=== PATIENT | male | born 1960 | race Caucasian/White ===

== ENCOUNTER 2018-08-21 17:08 | Inpatient (IN) ==
[2018-08-21] MEDS ORDERED: Ipratropium/Albuterol Neb 3 ML ONE (17:09)
[2018-08-21] MEDS ORDERED: methylPREDNISolone 125 MG/2 ML VIAL ONE (17:12)
[2018-08-21] MEDS ORDERED: methylPREDNISolone 125 MG/2 ML VIAL IVP ONE (17:15)
[2018-08-21] MEDS ORDERED: KETAMINE IVC SCH (17:15)
[2018-08-21] MEDS ORDERED: Ipratropium/Albuterol Neb 3 ML IH ONE (17:15)
[2018-08-21] MEDS ORDERED: SODIUM CHLORIDE 0.9% IVC SCH (17:15)
[2018-08-21] MEDS ORDERED: *HR* Ketamine 500 MG/5 ML MDV IVP ONE (17:17)
--- NOTE | 2018-08-21 17:17 | Emergency Department Note ---
Disposition Clinical Impression: Acute exacerbation of chronic obstructive airways disease STEMI (ST elevation myocardial infarction) Qualifiers: Involved coronary artery: unspecified coronary artery Qualified Code(s): I21.3 - ST elevation (STEMI) myocardial infarction of unspecified site Acute respiratory failure Qualifiers: Respiratory failure complication: hypoxia and hypercapnia Qualified Code(s): J96.01 - Acute respiratory failure with hypoxia Disposition: Admitted As Inpatient Condition: Serious General Adult HPI - General Time Seen by Provider: 08/21/18 17:15 - Related Data Allergies Allergy/AdvReac Type Severity Reaction Status Date / Time No Known Allergies Allergy Verified 12/28/14 19:26 Past Medical History - Past Medical History Medical history: Reports: no medical history - Social History Smoking Status: Current some day smoker Smokeless Tobacco Status: No Alcohol use: Reports: none Course Vital Signs Temperature 0 F L 08/21/18 17:09 Pulse Rate 113 08/21/18 17:09 Respiratory Rate 36 08/21/18 17:09 Blood Pressure 178/123 08/21/18 17:09 O2 Sat by Pulse Oximetry 92 08/21/18 17:09 Temperature 101.2 F H 08/21/18 17:56 Pulse Rate 140 08/21/18 19:17 Respiratory Rate 32 08/21/18 18:00 Blood Pressure 134/97 08/21/18 19:17 O2 Sat by Pulse Oximetry 97 08/21/18 19:13 Oxygen Delivery Oxygen Delivery Bipap Medical Decision Making - Lab Data Result diagrams: 08/21/18 17:37 08/21/18 17:37 Lab Results 08/21/18 08/21/18 08/21/18 Range/Units 17:37 17:37 17:37 WBC 21.5 H (4.3-11.1) K/mcL RBC 5.49 (4.19-5.50) M/mcL Hgb 17.6 H (12.9-16.9) g/dL Hct 53.9 H (37.5-50.1) % MCV 98.2 (83.0-100.0) fL MCH 32.1 (28.0-33.3) pg MCHC 32.7 (31.6-35.5) g/dL RDW 13.3 (11.5-14.5) % Plt Count 273 (140-400) K/mcL MPV 9.9 (9.4-12.4) fL Immature Gran % 0.3 (0-4) % Seg Neutrophils % 50.0 % Lymphocytes % 39.4 % Monocytes % 8.2 % Eosinophils % 1.0 % Basophils % 1.1 % Neutrophils # 10.8 H (1.6-8.9) K/mcL Lymphocytes # 8.5 H (0.6-4.6) K/mcL Monocytes # 1.8 H (0.0-1.3) K/mcL Eosinophils # 0.2 (0.0-0.6) K/mcL Basophils # 0.2 (0.0-0.2) K/mcL Platelet Estimate Normal (Normal) Large Platelets Present A (Not Present) PT 11.8 (9.4-12.1) Seconds INR 1.0 APTT 37.0 H (26.0-36.0) Seconds Sodium 137 (136-145) mEq/L Potassium 4.5 (3.5-5.1) mEq/L Chloride 104 (98-107) mEq/L Carbon Dioxide 16 L (23-29) mEq/L BUN 11 (6-20) mg/dL Creatinine 0.95 (0.70-1.30) mg/dL Est GFR ( Amer) > 60 (> 60) Est GFR (Non-Af Amer) > 60 (> 60) BUN/Creatinine Ratio 12 (6-26) Glucose 201 H (70-105) mg/dL Calculated Osmolality 289 (280-300) Calcium 9.8 (8.6-10.3) mg/dL Troponin I 1.17 H* (< 0.04) ng/mL B-Natriuretic Peptide (Less than 100) pg/mL Specimen Rejected 08/21/18 08/21/18 Range/Units 17:37 17:37 WBC (4.3-11.1) K/mcL RBC (4.19-5.50) M/mcL Hgb (12.9-16.9) g/dL Hct (37.5-50.1) % MCV (83.0-100.0) fL MCH (28.0-33.3) pg MCHC (31.6-35.5) g/dL RDW (11.5-14.5) % Plt Count (140-400) K/mcL MPV (9.4-12.4) fL Immature Gran % (0-4) % Seg Neutrophils % % Lymphocytes % % Monocytes % % Eosinophils % % Basophils % % Neutrophils # (1.6-8.9) K/mcL Lymphocytes # (0.6-4.6) K/mcL Monocytes # (0.0-1.3) K/mcL Eosinophils # (0.0-0.6) K/mcL Basophils # (0.0-0.2) K/mcL Platelet Estimate (Normal) Large Platelets (Not Present) PT (9.4-12.1) Seconds INR APTT (26.0-36.0) Seconds Sodium (136-145) mEq/L Potassium (3.5-5.1) mEq/L Chloride (98-107) mEq/L Carbon Dioxide (23-29) mEq/L BUN (6-20) mg/dL Creatinine (0.70-1.30) mg/dL Est GFR ( Amer) (> 60) Est GFR (Non-Af Amer) (> 60) BUN/Creatinine Ratio (6-26) Glucose (70-105) mg/dL Calculated Osmolality (280-300) Calcium (8.6-10.3) mg/dL Troponin I (< 0.04) ng/mL B-Natriuretic Peptide 422 H (Less than 100) pg/mL Specimen Rejected Hemolyzed Critical Care Time Critical Care Time: Yes Total Critical Care Time: 60 Attestation: Critical care performed: Time is exclusive of separately billable procedures. Time includes: direct patient care, patient reassessment, coordination of patient care, interpretation of data (laboratory data, radiology data, and respiratory data), review of patient's medical records, medical consultation and documentation of patient care. Procedures included in critical care time: Procedures excluded from critical care time: Attestation Statement - Attestation Attestation: I examined this patient and my medical decision-making was reviewed with the Resident Physician. I agree with the documented findings, disposition and treatment plan as described except to the extent set forth below. Patient presents to the emergency department in respiratory distress. Accompani ed by his son. Patient has been short of breath since yesterday. Coughing. History of COPD. his son States he was so dyspneic he cannot not get to the bathroom this morning. On exam he is in obvious respiratory distress. Accessory muscle use. Tripoding. Conversational dyspnea. Satting 92 on room air. Plan. Nebs and steroids. BiPAP trial. Labs x-ray and admission. Patient is adamantly refusing to be intubated at this time. [address] elevations in the anterior leads. Concerning for ST elevation SC. Contacting interventional cardiology at this time. Dr. Suazo return phone call at 1820. Requests repeat EKG. We will send. 1920 Patient going to [facility] at this time. He has been sedated with Ativan, Versed, and Precedex. He is tolerating the BiPAP at this time, but still in respiratory distress. Lungs discuss him with the son about his wishes. The patient was adamant he did not want to be intubated. Patient was not intubated in the ED. DNR form on chart. Taking to [facility] at this time. Patient was also started on nitro drip after reviewing his x-ray. Patient also likely has pneumonia. Ordering IV antibiotics. Lengthy discussion with the son about how critically ill he is at this time. Son is aware of his poor prognosis. Chest X-Ray 08/21/18 17:15 IMPRESSION: Findings consistent with pulmonary edema, and small bilateral pleural effusions. Focal rounded opacity of the right mid lung lateral to the hilar shadow which may either be due to a mass or focal pneumonia. Follow-up to ensure resolution is needed. Recommend either a follow-up chest x-ray in 2-3 weeks after treatment or a chest CT. D/ / Cesar Babin MD / Cesar Babin MD Interpreting Provider: Cesar Babin MD
[2018-08-21] MEDS ORDERED: 0.9 % Sodium Chloride 250 ML ONE (17:22)
[2018-08-21] MEDS ORDERED: *HR* Ketamine 500 MG/5 ML MDV ONE (17:22)
[2018-08-21 17:54] LABS: Basophils # 0.2 K/mcL (0.0-0.2); Basophils % 1.1 %; Eosinophils # 0.2 K/mcL (0.0-0.6); Hematocrit 53.9 % (37.5-50.1); Hemoglobin 17.6 g/dL (12.9-16.9); Immature Granulocytes % 0.3 % (0-4); Lymphocytes # 8.5 K/mcL (0.6-4.6); Lymphocytes % 39.4 %; Mean Corpuscular HGB Conc 32.7 g/dL (31.6-35.5); Mean Corpuscular Hemoglobin 32.1 pg (28.0-33.3); Mean Corpuscular Volume 98.2 fL (83.0-100.0); Mean Platelet Volume 9.9 fL (9.4-12.4); Monocytes # 1.8 K/mcL (0.0-1.3); Monocytes % 8.2 %; Neutrophils # 10.8 K/mcL (1.6-8.9); Platelet Count 273 K/mcL (140-400); Red Blood Count 5.49 M/mcL (4.19-5.50); Red Cell Distribution Width 13.3 % (11.5-14.5)
[2018-08-21] MEDS ORDERED: Acetaminophen 650 MG RECTAL SUPP RC ONE (17:58)
[2018-08-21 18:11] LABS: Platelet Estimate Normal (Normal)
[2018-08-21 18:12] LABS: Large Platelets Present (Not Present); Prothrombin Time 11.8 Seconds (9.4-12.1)
[2018-08-21] MEDS: Dexmedetomidine HCl 400 MCG/100 ML MLS IVC SCH (18:25)
--- NOTE | 2018-08-21 18:30 | Emergency Department Note ---
Disposition Clinical Impression: Acute exacerbation of chronic obstructive airways disease STEMI (ST elevation myocardial infarction) Qualifiers: Involved coronary artery: unspecified coronary artery Qualified Code(s): I21.3 - ST elevation (STEMI) myocardial infarction of unspecified site Acute respiratory failure Qualifiers: Respiratory failure complication: hypoxia and hypercapnia Qualified Code(s): J96.01 - Acute respiratory failure with hypoxia Disposition: Admitted As Inpatient Condition: Critical Time of Disposition: 19:25 General Adult HPI - General Chief complaint: ED Shortness of Breath/Dyspnea Stated complaint: USMAN Time Seen by Provider: 08/21/18 17:15 Source: patient Limitations: no limitations Nursing Notes Reviewed: Yes Vital Signs Reviewed: Yes - History of Present Illness HPI Narrative: 58-year-old male presented to the emergency department from the chest ambulance bay in respiratory distress. Has history of COPD said he was unable to catch his breath. He does have history of COPD is still smoking. Says he has nebulizers at home does not have a BiPAP as he gets very anxious whenever he uses it. He said this is unable to catch his breath he has had fever yesterday. Otherwise patient has no other complaints at this time. He is studies been working of breathing over the last 2-3 days. With increased today where he just could not stand it. Pain Scale: 2 - Related Data Allergies Allergy/AdvReac Type Severity Reaction Status Date / Time No Known Allergies Allergy Verified 12/28/14 19:26 All systems ED: reviewed and negative except as stated. Review of Systems: As Per HPI Past Medical History - Past Medical History Attestation: Yes The following information was validated with the patient. Source: patient Medical history: Reports: COPD - Social History Smoking Status: Current every day smoker Smokeless Tobacco Status: No Alcohol use: Reports: none Physical Exam - General Limitations: no limitations General appearance: alert, in distress - Head Head exam: atraumatic, normocephalic, normal inspection - Eye Eye exam: Present: normal appearance, PERRL, EOMI - ENT ENT exam: normal exam, normal oropharynx, mucous membranes moist - Neck Neck exam: Present: normal inspection, full ROM, trachea midline - Chest Chest inspection: Present: normal inspection, symmetric chest wall rise - Respiratory Respiratory exam: Present: respiratory distress, wheezes, accessory muscle use, prolonged expiratory phase - Cardiovascular Cardiovascular exam: Present: regular rate, normal rhythm, normal heart sounds - Abdominal Exam Abdominal exam: Present: soft, Non-Tender, normal bowel sounds. Absent: tenderness, distention, guarding, rebound, rigidity - Extremities Exam Extremities exam: Present: normal inspection, full ROM. Absent: tenderness, pedal edema - Back Exam Back exam: Present: normal inspection, full ROM. Absent: tenderness, CVA tenderness (R), CVA tenderness (L) - Neurological Exam Neurological exam: Present: alert, oriented X3 Course - Reevaluation(s) Reevaluation #1: Reevaluated just prior to leaving to the [facility]. This is all he was on Precedex we did give a dose of her said he did become more relaxed and is doing well on the BiPAP machine. We did recommend intubation but again we had a discussion with the son who was at bedside and we talked about the patient not wanting to be intubated. The son again decided we would not do intubation at that time. Patient was sent to the [facility] at this time. Time: 19:20 - Consultations Consultation #1: Patient was sent to Dr. Suazo at 1745. I received no call back and sometimes then I personally called the [facility]aging Center myself and Dr. Suazo called back and I spoke with him at 1820. He is recommended I repeat an EKG as its been a half hour since duo nebs and steroids and he said if the elevated he will take the patient to [facility]. Awaiting EKG result of this time. Vital Signs Temperature 0 F L 08/21/18 17:09 Pulse Rate 113 08/21/18 17:09 Respiratory Rate 36 08/21/18 17:09 Blood Pressure 178/123 08/21/18 17:09 O2 Sat by Pulse Oximetry 92 08/21/18 17:09 Temperature 101.2 F H 08/21/18 17:56 Pulse Rate 140 08/21/18 19:17 Respiratory Rate 32 08/21/18 18:00 Blood Pressure 134/97 08/21/18 19:17 O2 Sat by Pulse Oximetry 97 08/21/18 19:13 Oxygen Delivery Oxygen Delivery Bipap Medical Decision Making - MDM Narrative Medical decision making narrative: 58-year-old male presented to the emergency department and shortness of breath. Patient was a very difficult time breathing we placed him on triple DuoNeb treatment as well as gave him a dose of Solu-Medrol he was 7 hard time says very anxious with mass was not doing well at that time he said patient needed BiPAP. He said he is very anxious so we started him on ketamine I gave him a ketamine bolus of one bag per kilogram and started a drip at 1 mg/kg per hour. Patient was tolerating this well we do not have a protocol for a a ketamine drip/tit ration for sedation so we changed him to a Precedex drip. EKG came back to us at approximately 1740 at that time we looked at and were worried about the ST elevations we paged Dr. Suazo interventional cardiology. We did not call STEMI originally due to patient not being stable when he first arrived adn we thought this may be due to respiratory. For some reason the patient not get through to him so I re-patient approximate 20 minutes later he then called back and he told me to repeat the EKG is been a half hour due to the respiratory distress this could be artifact or could be an underlying cause causing the ST elevation. He did have ST elevations in leads V1 and V2 and V3. There were no reciprocal changes. Patient was mainly here for shortness of breath never admitted to chest pain but he was in a lot of distress due to the breathing when he arrived. Dr. Suazo I then spoke with at that time and he saw the second EKG and decide to call a STEMI alert. The STEMI alert was called at 1835. This is per Dr. Suazo. At that time heparin were given we did give rectal aspirin. Patient was unable to chew is currently on Precedex at this time so were unable to give the brillenta. I first saw Dr. Suazo at 1743 he then called me back at 181. Myself and Dr. Finley both had a long discussion with the patient prior to giving him the ketamine and he stated he did not want to be intubated and did not want to be resuscitated in case his heart was to stop beating. Family was at bedside and they also agree with that. We are making him a DNR/DNI. Patient did have a fever so we started him on Levaquin. Patient probably has an underlying pneumonia as well. While patient was here prior to leaving we did look at his chest x-ray again which did show pleural effusions patient could be an flash pulmonary edema so did give him a 100 g per hour drip of nitroglycerin. Patient tolerated this well pressure was holding. Chest X-Ray 08/21/18 17:15 IMPRESSION: Findings consistent with pulmonary edema, and small bilateral pleural effusions. Focal rounded opacity of the right mid lung lateral to the hilar shadow which may either be due to a mass or focal pneumonia. Follow-up to ensure resolution is needed. Recommend either a follow-up chest x-ray in 2-3 weeks after treatment or a chest CT. D/ / Cesar Babin MD / Cesar Babin MD Interpreting Provider: Cesar Babin MD - Medical Records Medical records reviewed: Yes I reviewed the patient's medical records. - Lab Data Lab results reviewed: Yes I reviewed the patient's lab results. Result diagrams: 08/21/18 17:37 08/21/18 17:37 Lab Results 08/21/18 08/21/18 08/21/18 Range/Units 17:37 17:37 17:37 WBC 21.5 H (4.3-11.1) K/mcL RBC 5.49 (4.19-5.50) M/mcL Hgb 17.6 H (12.9-16.9) g/dL Hct 53.9 H (37.5-50.1) % MCV 98.2 (83.0-100.0) fL MCH 32.1 (28.0-33.3) pg MCHC 32.7 (31.6-35.5) g/dL RDW 13.3 (11.5-14.5) % Plt Count 273 (140-400) K/mcL MPV 9.9 (9.4-12.4) fL Immature Gran % 0.3 (0-4) % Seg Neutrophils % 50.0 % Lymphocytes % 39.4 % Monocytes % 8.2 % Eosinophils % 1.0 % Basophils % 1.1 % Neutrophils # 10.8 H (1.6-8.9) K/mcL Lymphocytes # 8.5 H (0.6-4.6) K/mcL Monocytes # 1.8 H (0.0-1.3) K/mcL Eosinophils # 0.2 (0.0-0.6) K/mcL Basophils # 0.2 (0.0-0.2) K/mcL Platelet Estimate Normal (Normal) Large Platelets Present A (Not Present) PT 11.8 (9.4-12.1) Seconds INR 1.0 APTT 37.0 H (26.0-36.0) Seconds Sodium 137 (136-145) mEq/L Potassium 4.5 (3.5-5.1) mEq/L Chloride 104 (98-107) mEq/L Carbon Dioxide 16 L (23-29) mEq/L BUN 11 (6-20) mg/dL Creatinine 0.95 (0.70-1.30) mg/dL Est GFR ( Amer) > 60 (> 60) Est GFR (Non-Af Amer) > 60 (> 60) BUN/Creatinine Ratio 12 (6-26) Glucose 201 H (70-105) mg/dL Calculated Osmolality 289 (280-300) Calcium 9.8 (8.6-10.3) mg/dL Troponin I 1.17 H* (< 0.04) ng/mL B-Natriuretic Peptide (Less than 100) pg/mL Specimen Rejected 08/21/18 08/21/18 Range/Units 17:37 17:37 WBC (4.3-11.1) K/mcL RBC (4.19-5.50) M/mcL Hgb (12.9-16.9) g/dL Hct (37.5-50.1) % MCV (83.0-100.0) fL MCH (28.0-33.3) pg MCHC (31.6-35.5) g/dL RDW (11.5-14.5) % Plt Count (140-400) K/mcL MPV (9.4-12.4) fL Immature Gran % (0-4) % Seg Neutrophils % % Lymphocytes % % Monocytes % % Eosinophils % % Basophils % % Neutrophils # (1.6-8.9) K/mcL Lymphocytes # (0.6-4.6) K/mcL Monocytes # (0.0-1.3) K/mcL Eosinophils # (0.0-0.6) K/mcL Basophils # (0.0-0.2) K/mcL Platelet Estimate (Normal) Large Platelets (Not Present) PT (9.4-12.1) Seconds INR APTT (26.0-36.0) Seconds Sodium (136-145) mEq/L Potassium (3.5-5.1) mEq/L Chloride (98-107) mEq/L Carbon Dioxide (23-29) mEq/L BUN (6-20) mg/dL Creatinine (0.70-1.30) mg/dL Est GFR ( Amer) (> 60) Est GFR (Non-Af Amer) (> 60) BUN/Creatinine Ratio (6-26) Glucose (70-105) mg/dL Calculated Osmolality (280-300) Calcium (8.6-10.3) mg/dL Troponin I (< 0.04) ng/mL B-Natriuretic Peptide 422 H (Less than 100) pg/mL Specimen Rejected Hemolyzed - Radiology Data Radiology results reviewed: Yes I reviewed the patient's radiology results. - EKG Data EKG #1 EKG attestation: Yes I reviewed and interpreted this EKG. EKG results narrative: EKG #3 done at 1828 review myself and attending shows sinus tachycardia rate of 128, W[place] 126, QRS 106, QTC 444. There still ST elevations in V1 through V3. More prominent in V2. No other changes based on previous EKG. EKG #2 EKG attestation: Yes I reviewed and interpreted this EKG. EKG results narrative: EKG #3 done at 1828 review myself and attending shows sinus tachycardia rate of 128, W[place] 126, QRS 106, QTC 444. There still ST elevations in V1 through V3. More prominent in V2. No other changes based on previous EKG. EKG #3 EKG attestation: Yes I reviewed and interpreted this EKG. EKG results narrative: EKG #3 done at 1828 review myself and attending shows sinus tachycardia rate of 128, W[place] 126, QRS 106, QTC 444. There still ST elevations in V1 through V3. More prominent in V2. No other changes based on previous EKG.
[2018-08-21] MEDS ORDERED: *HR* Ticagrelor 90 MG TABLET PO ONE (18:37)
[2018-08-21] MEDS ORDERED: *HR* Heparin 5,000 UNIT/ML VIAL IVP ONE (18:37)
[2018-08-21] MEDS ORDERED: *HR* Heparin 5,000 UNIT/ML VIAL IVP PRN ×2 (18:37)
[2018-08-21 18:42] LABS: BUN/Creatinine Ratio 12 (6-26); Blood Urea Nitrogen 11 mg/dL (6-20); Calcium 9.8 mg/dL (8.6-10.3); Carbon Dioxide 16 mEq/L (23-29); Chloride 104 mEq/L (98-107); Glucose 201 mg/dL (70-105); Osmolality,Calculated 289 (280-300); Potassium 4.5 mEq/L (3.5-5.1); Sodium 137 mEq/L (136-145); eGFR For Non-African Americans > 60 (> 60)
[2018-08-21] MEDS ORDERED: *HR* Midazolam HCl 5 MG/5 ML VIAL IVP ONE ×2 (18:56→19:16)
[2018-08-21] MEDS ORDERED: ISOVUE-370 200 ML INFUS..BTL ONE (19:00)
[2018-08-21] MEDS ORDERED: 0.9 % Sodium Chloride 1,000 ML ONE (19:00)
[2018-08-21] MEDS ORDERED: *HR* Heparin 10,000 UNIT/10 ML VIAL ONE (19:00)
[2018-08-21] MEDS ORDERED: Heparin 1,000 UNITS/500 mL 500 ML ONE (19:00)
[2018-08-21] MEDS ORDERED: Nitroglycerin 1,000 MCG/10 ML VIAL IV ONE (19:01)
[2018-08-21] MEDS ORDERED: Nitroglycerin 25 MG/250 ML INFUS..BTL IVC ONE (19:07)
[2018-08-21] MEDS ORDERED: *HR* FentaNYL (PF) 100 MCG/2 ML VIAL ONE ×2 (19:12→19:35)
--- NOTE | 2018-08-21 19:15 | Pre-Sedation Evaluation ---
Pre-sedation evaluation - Pre-sedation checklist Date of procedure: 08/21/18 Procedure: [facility] Recent Vitals: Last Vital Signs Temp 101.2 F H 08/21/18 17:56 Pulse 143 08/21/18 19:13 Resp 32 08/21/18 18:00 BP 133/115 08/21/18 19:13 Pulse Ox 97 08/21/18 19:13 H&P (including ROS) documented in medical record: Yes Previous reaction to sedatives/anesthetics: No Dietary Status: unknown Airway Assessment: Patient can open mouth completely, TMJ function normal If Yes;: Enlarged neck circumference, short neck ASA Classification *see protocol: CLASS IV-Severe systemic disease/constant threat to pt's life Plan of Care: Risks/benefits of procedure/sedation discussed w/ patient/family, If not NPO; Risk of intake outweiged by necessity to perform procedure Cardiac Registry (Cardio Only) - Functional Capacity Functional Capacity: Unknown - Clincal Frailty Scale Clinical Frailty Scale: Vulnerable
[2018-08-21] MEDS ORDERED: Ondansetron 4 MG/2 ML VIAL IVP PRN (19:16)
--- NOTE | 2018-08-21 19:16 | Cardiology History & Physical ---
Date of Encounter: 08/22/18 Time of Encounter: 19:20 Assessment and Plan (1) STEMI (ST elevation myocardial infarction) Current Visit: Yes Status: Acute A/R/B of [facility] was discussed with family/patient by ED, they were made aware that DNR would be held in order to proceed with cath. 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 Aspirin, heparin given. EF assessment to be completed. Total critical care time: 60 minutes The assessment and plan as outlined above was discussed with the patient and/or family members who expressed understanding and agreement. All questions were answered. Qualifiers: Involved coronary artery: unspecified coronary artery Qualified Code(s): I21.3 - ST elevation (STEMI) myocardial infarction of unspecified site (2) Pneumonia Current Visit: Yes Status: Acute PNA/COPD exacerbation. IV steroids/nebs given. Pt intubated as obtunded in respiratory failure. Antibiotics given. The assessment and plan as outlined above was discussed with the patient and/or family members who expressed understanding and agreement. All questions were answered. Qualifiers: Pneumonia type: due to unspecified organism Laterality: right Lung location: middle lobe of lung Qualified Code(s): J18.1 - Lobar pneumonia, unspecified organism History of Present Illness Chief complaint: dyspnea HPI: Mr. Mckenzie is a 58 year old male w no previous cardiac history presents with dyspnea on exertion, respiratory failure and EKG concerning for anterior current of injury but complicated by baseline wander; STEMI page activated. Patient obtunded when arriving to dentures lab technician and in respiratory failure on BIPAP. At this point, he was to be full code per son's wishes. He was given 1mg/kg jann, 4mg versed, 50mcg fentanyl and intubated with ABG sent off showing hypercarbic respiratory failure with acidosis. Subsequent cath today shows EF 20% and mild CAD with Normal LVEDP. He was noted to be in AFlutter in dentures lab technician, and started on amiodarone w subsequent digoxin bolus (patient BP at this time borderline lo w; NTG drip stopped upon arrival to dentures lab technician) In ED, levaquin/iv steroids/nebs, NTG, heparin and aspirin given and bipap started. Past Med Surg Social Fam HX - Past Medical History Medical history: COPD - Social History Smoking Status: Current every day smoker Smokeless Tobacco Status: No Alcohol use: none - Family History Mother Cause of : CANCER Hx Family Cancer: Yes Medications and Allergies Albuterol Sulfate [Albuterol Inhaler] 2 puff IH Q4H PRN 08/21/18 [History] Budesonide/Formoterol 160/4.5 [Symbicort 160/4.5] 2 puff IH BIDR 08/21/18 [History] Gabapentin 800 mg PO TID 08/21/18 [History] Omeprazole [PriLOSEC] 40 mg PO DAILY 08/21/18 [History] Tiotropium [Spiriva] 1 puff IH DAILY 08/21/18 [History] Trazodone HCl 100 mg PO HS 08/21/18 [History] Allergy/AdvReac Type Severity Reaction Status Date / Time No Known Allergies Allergy Verified 12/28/14 19:26 ROS unobtainable: due to endotracheal tube, due to mental status All Systems Review: The remainder of the systems were reviewed and are negative Physical Examination Vital Signs, Last 4 Hours Temp Pulse Resp BP Pulse Ox 08/21/18 19:13 143 133/115 97 08/21/18 18:01 169/114 08/21/18 18:00 123 32 92 08/21/18 17:56 101.2 F H 08/21/18 17:43 128 32 152/101 100 08/21/18 17:38 129 28 179/136 100 08/21/18 17:35 43 179/136 100 08/21/18 17:10 30 92 08/21/18 17:09 0 F L 113 36 178/123 92 General: Other (intubated/sedated) HEENT: Atraumatic, Normocephaly Neck: No JVD Cardiac: Other (tachy) Lungs: Other (coarse BS) Neuro: Other (intubated/sedated) Abdomen: Soft Skin: No rashes noted on visualized skin Extremities: No Edema Results 08/21/18 17:37 08/21/18 17:37 Lab Results 08/21/18 08/21/18 08/21/18 17:37 17:37 17:37 WBC 21.5 H Hgb 17.6 H Hct 53.9 H Plt Count 273 INR 1.0 APTT 37.0 H Sodium 137 Potassium 4.5 Chloride 104 Carbon Dioxide 16 L BUN 11 Creatinine 0.95 Glucose 201 H Calcium 9.8 Troponin I 1.17 H* B-Natriuretic Peptide 08/21/18 17:37 WBC Hgb Hct Plt Count INR APTT Sodium Potassium Chloride Carbon Dioxide BUN Creatinine Glucose Calcium Troponin I B-Natriuretic Peptide 422 H - EKG Interpretation EKG results cardiology: personally reviewed, other (anterior current of injury, possibly acute)
[2018-08-21] MEDS ORDERED: Levofloxacin 750 MG/150 ML 750 MG/150 ML BAG IVPB ONE (19:23)
[2018-08-21 19:28] LABS: Magnesium 2.4 mg/dL (1.6-2.6)
[2018-08-21] MEDS ORDERED: Nitroglycerin 25 MG/250 ML INFUS..BTL IVC SCH (19:30)
[2018-08-21] MEDS ORDERED: Heparin 25,000 UNIT/250 ML D5W 25,000 UNIT/250 ML IV.SOLN IVC SCH (19:45)
[2018-08-21 19:57] LABS: ABG Base Excess 0 mEq/L (-2 to 3); ABG HCO3 34 mEq/L (21-27); ABG Oxygen Saturation 100 % (95-98); ABG PCO2 108 mmHg (35-45); ABG PH 7.11 pH Units (7.32-7.45); ABG PO2 273 mmHg (85-104); ABG TCO2 37 mEq/L (20-26); Blood Gas Modality ASSIST CONTROL; Blood Gas PEEP 5 cm H2O; Blood Gas Respiration Rate 14; Blood Gas VT 480 cc
[2018-08-21] MEDS ORDERED: Amiodarone Premix 360 MG/200 ML BAG IVC ONE (20:05)
[2018-08-21] MEDS ORDERED: *HR* Digoxin 0.5 MG/2 ML AMPUL IVP ONE (20:06)
[2018-08-21] MEDS ORDERED: Amiodarone Premix 360 MG/200 ML BAG IVC SCH (20:15)
--- NOTE | 2018-08-21 20:34 | Invasive Diagnostic Lab Proc ---
Name: Omega Mckenzie Date of Study: 08/21/2018 Date: 1960 Ht: 72.8in Medical Record#: [id number] Age: 58 Wt: 142.64lb Gender: Male BSA: 1.86 Order #: [id number] BMI: 18.9 Physicians Procedure Physician: Edison Suazo MD, [facility] Referring MD: Referring MD: Staff Name Position Time In Lea Akhtar RN Button Riveter 07:31 PM Christa Palacio RN Monitor 07:31 PM Kenia Huston RT 07:32 PM Procedures Performed Procedure L HRT ARTERY/VENTRICLE ANGIO Pre-Procedure Checklist Informed consent is complete signed and on chart. H&P is on chart. ID band is on and ID verified with patient. Patient NPO for procedure The procedure was described for the patient and questions were answered. ECG is on chart. Plan of Care Patient will tolerate the procedure without complications. Adequate level of comfort will be maintained. Hemodynamics will remain stable Patient will recover from procedure without complications. Respiratory function will be maintained. Cardiac rhythm will remain stable. Patient temperature will be maintained. Patient and/or family have verbalized understanding of the procedure. Patient Education Allergies No Known Allergies Vital Signs Time BP (mmHg) HR (bpm) O2 Sat. RR (bpm) LOC 07:33 PM / % 1 = Reflexes present/moves spontaneously 07:33 PM / % 0 = No reflexes elicited 07:48 PM / % 1 = Reflexes present/moves spontaneously 07:45 PM 101 / 67 142 96 % 18 07:50 PM 103 / 67 130 96 % 07:55 PM 105 / 67 131 95 % 19 08:00 PM 97 / 69 129 94 % 19 07:30 PM 125 / 81 137 94 % 37 07:34 PM 107 / 72 148 95 % 07:35 PM 97 / 68 151 95 % 12 07:40 PM 84 / 58 150 95 % 18 07:44 PM 97 / 68 144 96 % 13 Procedural Medications Time Medication Dose Units Method Given By 07:32 PM Versed 2 mg Intravenous Lea Akhtar RN 07:33 PM Versed 2 mg Intravenous Lea Akhtar RN 07:34 PM Succinylcholine 6.5 ml Intravenous Lea Akhtar RN 07:35 PM Fentanyl 50 mcg Intravenous Lea Akhtar RN 07:38 PM Sodium Bicarbonate 50 ml Intravenous Lea Akhtar RN 07:41 PM Nitroglycerin 50 mcg Intravenous Lea Akhtar RN 07:42 PM Nitroglycerin 0 mcg Intravenous Lea Akhtar RN 07:45 PM Lidocaine 2% 7 ml Subcutaneous Edison Suazo MD, [facility] 08:07 PM Amiodarone 33.3 ml/hr Intravenous Lea Akhtar RN 08:09 PM Adenosine 150 mg Intravenous Lea Akhtar RN James Score Preprocedure Postprocedure Activity 0- Unable to move extremities or lift head Activity 0- Unable to move extremities or lift head Circulation 0- SBP +/= 50 points of pre-anesthetic level Circulation 0- SBP +/= 50 points of pre-anesthetic level Consciousness 0- Non-responsive Consciousness 0- Non-responsive O2 Saturation 1- Needs O2 inhalation to maintain O2 saturation of 90% O2 Saturation 1- Needs O2 inhalation to maintain O2 saturation of 90% Respiratory 0- Apneic requires ventilator or assisted respiration Respiratory 0- Apneic requires ventilator or assisted respiration Total Score 1 Total Score 1 Contrast Agent: Isovue Diagnostic Contrast: 87 ml Total Contrast: 87 ml Fluoro Dose: 11 mGy Activated Clotting Time Time Seconds to Clot 07:49 PM 195 Procedure Log Time Note Enter By 06:50 PM Billy, son, agreed that his father would be a full code 24 hours once he went to the blood bank laboratory professional and that the pateint would need intubated because of his condition. Billy agreed. Patient is unable to answer at this time. patient only has reflex responses at this time ejohnson 07:30 PM Vitals capture started with the following parameters, Patient=Adult, Interval=5 min, Initial Sypwpyce=006 mmHg, Deflation Rate=5 mmHg, Cuff placed on Left Arm 07:30 PM QX=708 bpm, QKVK=082/81 mmhg, SpO2=94.0 %, Resp=37 B/min, Comment=ST 07:30 PM Hair removed from procedure site in procedure lab using clippers. Bilateral groin prepped with Chloraprep by Kenia Huston RT, then patient was draped. Skin intact. ejohnson 07:31 PM Pt arrived to sleep lab technologist 2 at 19:31 ejohnson 07:31 PM Lea Akhtar RN Position: Button Riveter Time in: 19:31 ejohnson 07:32 PM Christa Palacio RN Position: Monitor Time in: 19:31 ejohnson 07:32 PM Kenia Huston Position: scrub Time in: 19:32 ejohnson 07:32 PM Sign in performed according to hospital policy. Informed consent was obtained. ejohnson 07:32 PM Meet and greet completed ejohnson 07:32 PM Physician arrived 19:32 ejohnson 07:32 PM Time: 19:32 Versed 2 mg Intravenous Given by Hermilo. Lea PEDRO ejohnson 07:33 PM Time: 19:33 Versed 2 mg Intravenous Given by Lea Akhtar RN ejohnsmarybeth 07:33 PM Time: 19:33 Patient comfortable and pain free: Yes ejohnson 07:33 PM Time: 19:33LOC: 1 = Reflexes present/moves spontaneously ejohnson 07:34 PM Time: 19:34 Succinylcholine 6.5 ml Intravenous Given by Lea Akhtar RN ejohnsmarybeth 07:34 PM NIBP STAT measurement started. 07:34 PM EE=190 bpm, CQGN=254/72 mmhg, SpO2=95 % 07:35 PM Time: 19:35 Fentanyl 50 mcg Intravenous Given by Lea Akhtar RN ejohnson 07:35 PM Patient intubated per respiratory 7.5 ETtube at 23 cm lip line ejohnson 07:35 PM FH=585 bpm, NIBP=97/68 mmhg, SpO2=95 %, Resp=12 B/min 07:38 PM Time: 19:38 Sodium Bicarbonate 50 ml Intravenous Given by Lea Akhtar RN ejohnsmarybeth 07:40 PM QZ=746 bpm, NIBP=84/58 mmhg, SpO2=95.0 %, Resp=18 B/min, Comment=ST 07:41 PM Time: 19:41 Nitroglycerin 50 mcg Intravenous Given by Lea Akhtar RN, decreased from 100mcg/min started in the ER ejohnson 07:42 PM Time: 19:42 Nitroglycerin 0 mcg Intravenous Given by Lea Akhtar RN ejscnsmarybeth 07:42 PM Precedex started in the ER, remains at 6.5 ml/hr ejohnson 07:43 PM Pressure channel 1 zero failed. 07:43 PM NIBP STAT measurement started. 07:44 PM JF=201 bpm, NIBP=97/68 mmhg, SpO2=96.0 %, Resp=13 B/min 07:44 PM Recorded ECG: NT=405 Condition=Condition 1 07:45 PM Time: 19:45 7 ml Lidocaine 2% to right groin Subcutaneous Given by Edison Suazo MD, [facility] ejohnson 07:45 PM Micro-Introducer Kit utilized for sheath placement ejohnson 07:45 PM Sheath exchanged for a 6 Fr 11 cm Cordis Jacqueline sheath [id number] ejohnson 07:45 PM RG=778 bpm, BCRB=916/67 mmhg, SpO2=96.0 %, Resp=18 B/min, Comment=ST 07:47 PM 6Fr CLS 3.5 Runway guide catheter was used to cannulate the PCI vessel successfully. reused? No ejohnson 07:47 PM .014 [place] 180cm guide wire across target lesion- successful. reused? No ejohnson 07:48 PM Time: 19:33 Patient comfortable and pain free: Yes ejohnson 07:48 PM Time: 19:33LOC: 0 = No reflexes elicited ejohnson 07:48 PM Recorded Pressure: Ao, TQ=795, Condition=Condition 1 (Aorta) Ao 90/68/79 07:48 PM LCA angiography performed in multiple views. ejohnson 07:50 PM UO=135 bpm, AICO=141/67 mmhg, SpO2=96.0 %, Comment=ST 07:51 PM Guide catheter removed intact. ejohnson 07:52 PM 5Fr FR 4 catheter inserted over the wire DN ejohnson 07:52 PM RCA angiography performed in multiple views. ejohnson 07:52 PM Recorded Pressure: Ao, WJ=210, Condition=Condition 1 (Aorta) Ao 4/-3/0 07:53 PM Catheter removed ejohnson 07:53 PM 5Fr Pigtail catheter inserted over the wire DN ejohnson 07:54 PM Lesion found in Proximal LMCA. Pre Stenosis: 30 Pre JESSE Flow: ejohnson 07:54 PM Left Main Coronary Artery with 30% stenosis ejohnson 07:54 PM Recorded Pressure: LV, VM=710, Condition=Condition 1 (Left Ventricle) LV 103/7/9 07:55 PM Catheter crossed the aortic valve and was selectively placed in the left ventricle. Pressures recorded on pullback for left heart catheterization. ejohnson 07:55 PM Bolus angiogram of left Ventricle complete: 10 ml/sec for a total of 30 mls ejohnson 07:55 PM MP=728 bpm, BMLI=421/67 mmhg, SpO2=95.0 %, Resp=19 B/min, Comment=ST 07:55 PM Recorded Pressure: LV, Ao, VR=752, Condition=Condition 1 (Left Ventricle) LV 98/14/16, (Aorta) Ao 98/29/65 07:56 PM Catheter removed ejohnson 07:56 PM Recorded ECG: VU=083 Condition=Condition 1 07:56 PM groin shot ejohnson 07:57 PM Lesion found in Proximal RCA. Pre Stenosis: 30 Pre JESSE Flow: ejohnson 07:57 PM Lesion found in Proximal LAD. Pre Stenosis: 30 Pre JESSE Flow: ejohnson 07:57 PM Proximal Left Anterior Descending Coronary Artery with 30% stenosis. ejohnson 07:58 PM Right Coronary, Right Posterior Descending Arteries with Right Posterolateral and Acute Marginal branches with 30 % stenosis. ejohnson 07:58 PM all catheters and wires removed ejohnson 08:00 PM Procedure completed at 20:00 08/21/2018 ejohnson 08:00 PM LD=643 bpm, NIBP=97/69 mmhg, SpO2=94 %, Resp=19 B/min 08:02 PM Sign out completed: Radiation Dose 94.19 mGy, 10.9 Gy/cm2 Fluoro Time: 1.6 Isovue 370 - 200ml contrast 87 ml given by Edison Suazo MD, [facility]. Complications: None. The patient was discharged out of the blood bank laboratory professional in stable condition. Sedation minutes 28. Cardiac Rehab Consult needed: No. Confirmed administered medications: Yes ejohnson 08:02 PM Isovue 370 - 200ml,1 Bottle(s) used. ejohnson 08:02 PM Sheath left in place to be pulled on floor/holding areaV+Pad ejohnson 08:03 PM Post ECG Sinus Tachycardia ejohnson 08:03 PM Time: 19:48 Patient comfortable and pain free: Yes ejohnson 08:04 PM Time: 19:48LOC: 1 = Reflexes present/moves spontaneously ejohnson 08:08 PM Post Blood Pressure 102/73 ejohnson 08:08 PM 20:08 Post Pulses Bilateral DP & PT 1+ ejohnson 08:08 PM Information taught: unable to retain information at this time ejohnson 08:09 PM Time: 20:08 Amiodarone 33.3 ml/hr Intravenous Given by Lea Akhtar RN Ramirez pump ejohnson 08:09 PM Time: 20:09 Adenosine 150 mg Intravenous Given by Lea Akhtar RN ejohnson 08:15 PM Report given to Soumya PEDRO Pt taken to ICU Room #2. 20:15 ejohnson 08:15 PM Patient out of room: 20:15 ejohnson 08:22 PM Plavix, Effient or Brilinta given No ejohnson 08:22 PM Delay to floor No ejohnson 08:23 PM Family placed in consult room, Dr. Suazo talked to family, son and daughter ejohnson 08:23 PM Patient charges- Angio tray pack, Navilyst 3mm J, Pulse Oximetry and ACIST tubing and transducer ejohnson Complications Complication None Hemodynamics Pressures Site Systolic/A Wave Diastolic/V Wave Mean AO 90 68 79 AO 4 -3 0 LV 103 7 9 LV 98 14 16 AO 98 29 65 Post Procedure Information Blood Pressure: 102/73 mmHg Rhythm: Sinus Tachycardia Post procedural instructions were given Pulses Time Site Pre-Procedure Post-Procedure Note 8:08:00 PM Bilateral DP & PT 1+ 08/21/2018 7:30:00 PM Bilateral DP & PT 1+ Updated by Christa Palacio RN on 08/21/2018 8:26:44 PM Christa Palacio RN electronically signed on 08/21/2018 8:27:22 PM with status of Final
[2018-08-21 20:35] LABS: Troponin I 1.17 ng/mL (< 0.04)
--- NOTE | 2018-08-21 20:45 | Invasive Diagnostic Lab Proc ---
Name: Omega Mckenzie Date of Study: 08/21/2018 Date: 1960 Ht: 72.8in Medical Record#: [id number] Age: 58 Wt: 142.64lb Gender: Male BSA: 1.86 Order #: [id number] BMI: 18.9 Physicians Procedure Physician: Edison Suazo MD, [facility] Referring MD: Referring MD: Staff Name Position Time In Lea Akhtar RN Commercial Engineer 07:31 PM Christa Palacio RN Monitor 07:31 PM Kenia Huston RT 07:32 PM Procedures Performed Procedure L HRT ARTERY/VENTRICLE ANGIO Pre-Procedure Checklist Informed consent is complete signed and on chart. H&P is on chart. ID band is on and ID verified with patient. Patient NPO for procedure The procedure was described for the patient and questions were answered. ECG is on chart. Plan of Care Patient will tolerate the procedure without complications. Adequate level of comfort will be maintained. Hemodynamics will remain stable Patient will recover from procedure without complications. Respiratory function will be maintained. Cardiac rhythm will remain stable. Patient temperature will be maintained. Patient and/or family have verbalized understanding of the procedure. Patient Education Allergies No Known Allergies Vital Signs Time BP (mmHg) HR (bpm) O2 Sat. RR (bpm) LOC 07:33 PM / % 1 = Reflexes present/moves spontaneously 07:33 PM / % 0 = No reflexes elicited 07:48 PM / % 1 = Reflexes present/moves spontaneously 07:45 PM 101 / 67 142 96 % 18 07:50 PM 103 / 67 130 96 % 07:55 PM 105 / 67 131 95 % 19 08:00 PM 97 / 69 129 94 % 19 07:30 PM 125 / 81 137 94 % 37 07:34 PM 107 / 72 148 95 % 07:35 PM 97 / 68 151 95 % 12 07:40 PM 84 / 58 150 95 % 18 07:44 PM 97 / 68 144 96 % 13 Procedural Medications Time Medication Dose Units Method Given By 07:32 PM Versed 2 mg Intravenous Lea Akhtar RN 07:33 PM Versed 2 mg Intravenous Lea Akhtar RN 07:34 PM Rocuronium 6.5 ml Intravenous Lea Akhtar RN 07:35 PM Fentanyl 50 mcg Intravenous Lea Akhtar RN 07:38 PM Sodium Bicarbonate 50 ml Intravenous Lea Akhtar RN 07:41 PM Nitroglycerin 50 mcg Intravenous Lea Akhtar RN 07:42 PM Nitroglycerin 0 mcg Intravenous Lea Akhtar RN 07:45 PM Lidocaine 2% 7 ml Subcutaneous Edison Suazo MD, [facility] 08:07 PM Amiodarone 33.3 ml/hr Intravenous Lea Akhtar RN 08:09 PM Adenosine 150 mg Intravenous Lea Akhtar RN James Score Preprocedure Postprocedure Activity 0- Unable to move extremities or lift head Activity 0- Unable to move extremities or lift head Circulation 0- SBP +/= 50 points of pre-anesthetic level Circulation 0- SBP +/= 50 points of pre-anesthetic level Consciousness 0- Non-responsive Consciousness 0- Non-responsive O2 Saturation 1- Needs O2 inhalation to maintain O2 saturation of 90% O2 Saturation 1- Needs O2 inhalation to maintain O2 saturation of 90% Respiratory 0- Apneic requires ventilator or assisted respiration Respiratory 0- Apneic requires ventilator or assisted respiration Total Score 1 Total Score 1 Contrast Agent: Isovue Diagnostic Contrast: 87 ml Total Contrast: 87 ml Fluoro Dose: 11 mGy Activated Clotting Time Time Seconds to Clot 07:49 PM 195 Procedure Log Time Note Enter By 06:50 PM Billy, son, agreed that his father would be a full code 24 hours once he went to the landscape laborer and that the pateint would need intubated because of his condition. Billy agreed. Patient is unable to answer at this time. patient only has reflex responses at this time ejohnson 07:30 PM Vitals capture started with the following parameters, Patient=Adult, Interval=5 min, Initial Cqjlcsia=391 mmHg, Deflation Rate=5 mmHg, Cuff placed on Left Arm 07:30 PM SO=033 bpm, XPXF=253/81 mmhg, SpO2=94.0 %, Resp=37 B/min, Comment=ST 07:30 PM Hair removed from procedure site in procedure lab using clippers. Bilateral groin prepped with Chloraprep by Kenia Huston RT, then patient was draped. Skin intact. ejohnson 07:31 PM Pt arrived to liaison inspection laboratory assistant 2 at 19:31 ejohnson 07:31 PM Lea Akhtar RN Position: Commercial Engineer Time in: 19:31 ejohnson 07:32 PM Christa Palacio RN Position: Monitor Time in: 19:31 ejohnson 07:32 PM Kenia Huston Position: scrub Time in: 19:32 ejohnson 07:32 PM Sign in performed according to hospital policy. Informed consent was obtained. ejohnson 07:32 PM Meet and greet completed ejohnson 07:32 PM Physician arrived 19:32 ejohnson 07:32 PM Time: 19:32 Versed 2 mg Intravenous Given by Hermilo. Lea PEDRO ejohnson 07:33 PM Time: 19:33 Versed 2 mg Intravenous Given by Lea Akhtar RN ejohnsmarybeth 07:33 PM Time: 19:33 Patient comfortable and pain free: Yes ejohnson 07:33 PM Time: 19:33LOC: 1 = Reflexes present/moves spontaneously ejohnson 07:34 PM Time: 19:34 Succinylcholine 6.5 ml Intravenous Given by Lea Akhtar RN ejohnsmarybeth 07:34 PM NIBP STAT measurement started. 07:34 PM AT=261 bpm, SJZH=510/72 mmhg, SpO2=95 % 07:35 PM Time: 19:35 Fentanyl 50 mcg Intravenous Given by Lea Akhtar RN ejohnson 07:35 PM Patient intubated per respiratory 7.5 ETtube at 23 cm lip line ejohnson 07:35 PM LI=988 bpm, NIBP=97/68 mmhg, SpO2=95 %, Resp=12 B/min 07:38 PM Time: 19:38 Sodium Bicarbonate 50 ml Intravenous Given by Lea Akhtar RN ejohnsmarybeth 07:40 PM HL=519 bpm, NIBP=84/58 mmhg, SpO2=95.0 %, Resp=18 B/min, Comment=ST 07:41 PM Time: 19:41 Nitroglycerin 50 mcg Intravenous Given by Lea Akhtar RN, decreased from 100mcg/min started in the ER ejohnson 07:42 PM Time: 19:42 Nitroglycerin 0 mcg Intravenous Given by Lea Akhtar RN ejiansmarybeth 07:42 PM Precedex started in the ER, remains at 6.5 ml/hr ejohnson 07:43 PM Pressure channel 1 zero failed. 07:43 PM NIBP STAT measurement started. 07:44 PM HY=624 bpm, NIBP=97/68 mmhg, SpO2=96.0 %, Resp=13 B/min 07:44 PM Recorded ECG: ZL=257 Condition=Condition 1 07:45 PM Time: 19:45 7 ml Lidocaine 2% to right groin Subcutaneous Given by Edison Suazo MD, [facility] ejohnson 07:45 PM Micro-Introducer Kit utilized for sheath placement ejohnson 07:45 PM Sheath exchanged for a 6 Fr 11 cm Cordis Jacqueline sheath [id number] ejohnson 07:45 PM RM=585 bpm, CXVT=207/67 mmhg, SpO2=96.0 %, Resp=18 B/min, Comment=ST 07:47 PM 6Fr CLS 3.5 Runway guide catheter was used to cannulate the PCI vessel successfully. reused? No ejohnson 07:47 PM .014 [place] 180cm guide wire across target lesion- successful. reused? No ejohnson 07:48 PM Time: 19:33 Patient comfortable and pain free: Yes ejohnson 07:48 PM Time: 19:33LOC: 0 = No reflexes elicited ejohnson 07:48 PM Recorded Pressure: Ao, VV=199, Condition=Condition 1 (Aorta) Ao 90/68/79 07:48 PM LCA angiography performed in multiple views. ejohnson 07:50 PM CI=491 bpm, VHXM=556/67 mmhg, SpO2=96.0 %, Comment=ST 07:51 PM Guide catheter removed intact. ejohnson 07:52 PM 5Fr FR 4 catheter inserted over the wire DN ejohnson 07:52 PM RCA angiography performed in multiple views. ejohnson 07:52 PM Recorded Pressure: Ao, LQ=651, Condition=Condition 1 (Aorta) Ao 4/-3/0 07:53 PM Catheter removed ejohnson 07:53 PM 5Fr Pigtail catheter inserted over the wire DN ejohnson 07:54 PM Lesion found in Proximal LMCA. Pre Stenosis: 30 Pre JESSE Flow: ejohnson 07:54 PM Left Main Coronary Artery with 30% stenosis ejohnson 07:54 PM Recorded Pressure: LV, VI=090, Condition=Condition 1 (Left Ventricle) LV 103/7/9 07:55 PM Catheter crossed the aortic valve and was selectively placed in the left ventricle. Pressures recorded on pullback for left heart catheterization. ejohnson 07:55 PM Bolus angiogram of left Ventricle complete: 10 ml/sec for a total of 30 mls ejohnson 07:55 PM XW=171 bpm, SKWQ=997/67 mmhg, SpO2=95.0 %, Resp=19 B/min, Comment=ST 07:55 PM Recorded Pressure: LV, Ao, VF=859, Condition=Condition 1 (Left Ventricle) LV 98/14/16, (Aorta) Ao 98/29/65 07:56 PM Catheter removed ejohnson 07:56 PM Recorded ECG: XV=311 Condition=Condition 1 07:56 PM groin shot ejohnson 07:57 PM Lesion found in Proximal RCA. Pre Stenosis: 30 Pre JESSE Flow: ejohnson 07:57 PM Lesion found in Proximal LAD. Pre Stenosis: 30 Pre JESSE Flow: ejohnson 07:57 PM Proximal Left Anterior Descending Coronary Artery with 30% stenosis. ejohnson 07:58 PM Right Coronary, Right Posterior Descending Arteries with Right Posterolateral and Acute Marginal branches with 30 % stenosis. ejohnson 07:58 PM all catheters and wires removed ejohnson 08:00 PM Procedure completed at 20:00 08/21/2018 ejohnson 08:00 PM SC=753 bpm, NIBP=97/69 mmhg, SpO2=94 %, Resp=19 B/min 08:02 PM Sign out completed: Radiation Dose 94.19 mGy, 10.9 Gy/cm2 Fluoro Time: 1.6 Isovue 370 - 200ml contrast 87 ml given by Edison Suazo MD, [facility]. Complications: None. The patient was discharged out of the landscape laborer in stable condition. Sedation minutes 28. Cardiac Rehab Consult needed: No. Confirmed administered medications: Yes ejohnson 08:02 PM Isovue 370 - 200ml,1 Bottle(s) used. ejohnson 08:02 PM Sheath left in place to be pulled on floor/holding areaV+Pad ejohnson 08:03 PM Post ECG Sinus Tachycardia ejohnson 08:03 PM Time: 19:48 Patient comfortable and pain free: Yes ejohnson 08:04 PM Time: 19:48LOC: 1 = Reflexes present/moves spontaneously ejohnson 08:08 PM Post Blood Pressure 102/73 ejohnson 08:08 PM 20:08 Post Pulses Bilateral DP & PT 1+ ejohnson 08:08 PM Information taught: unable to retain information at this time ejohnson 08:09 PM Time: 20:08 Amiodarone 33.3 ml/hr Intravenous Given by Lea Akhtar RN Ramirez pump ejohnson 08:09 PM Time: 20:09 Adenosine 150 mg Intravenous Given by Lea Akhtar RN ejohnson 08:15 PM Report given to Soumya PEDRO Pt taken to ICU Room #2. 20:15 ejohnson 08:15 PM Patient out of room: 20:15 ejohnson 08:22 PM Plavix, Effient or Brilinta given No ejohnson 08:22 PM Delay to floor No ejohnson 08:23 PM Family placed in consult room, Dr. Suazo talked to family, son and daughter ejohnson 08:23 PM Patient charges- Angio tray pack, Navilyst 3mm J, Pulse Oximetry and ACIST tubing and transducer ejohnson Complications Complication None Hemodynamics Pressures Site Systolic/A Wave Diastolic/V Wave Mean AO 90 68 79 AO 4 -3 0 LV 103 7 9 LV 98 14 16 AO 98 29 65 Post Procedure Information Blood Pressure: 102/73 mmHg Rhythm: Sinus Tachycardia Post procedural instructions were given Pulses Time Site Pre-Procedure Post-Procedure Note 8:08:00 PM Bilateral DP & PT 1+ 08/21/2018 7:30:00 PM Bilateral DP & PT 1+ Updated by Christa Palacio RN on 08/21/2018 8:36:43 PM Christa Palacio RN electronically signed on 08/21/2018 8:37:30 PM with status of Final
[2018-08-21] MEDS ORDERED: *HR* Ticagrelor 90 MG TABLET PO SCH (21:00)
[2018-08-21] MEDS: *HR* FentaNYL (PF) 100 MCG/2 ML VIAL IVP ONE ×2 (21:08)
--- NOTE | 2018-08-21 22:06 | Internal Medicine Consult Note ---
<Mary Lou Pendleton N - Last Filed: 08/21/18 22:57> Date of Encounter: 08/21/18 Time of Encounter: 22:05 - Assessment and Plan (1) Acute respiratory failure Current Visit: Yes Status: Acute Assessment and plan: Secondary to pneumonia and fluid overload in setting of underlying end-stage COPD. On initial presentation, patient was tachypneic with respiratory rate of 36. Patient was intubated while in the [facility]; initial ABG performed at 19:50 demonstrated 7.11, PCO2 108, PO2 273, HCO3 34, and 100% oxygen saturation. Repeat ABG at 22:05 was slightly improved, with 7.18, PCO2 75, PO2 69, HCO3 28, and 88% oxygen saturation. Plan: - Continue sedation and mechanical ventilation. - Further plan as detailed below. Qualifiers: Respiratory failure complication: hypoxia and hypercapnia Qualified Code(s): J96.01 - Acute respiratory failure with hypoxia; J96.02 - Acute respiratory failure with hypercapnia (2) Sepsis Current Visit: Yes Status: Acute Assessment and plan: Suspect secondary to community-acquired pneumonia. Patient initially met sepsis criteria with temperature 101.2, tachycardia (HR 113), and tachypnea (RR 36). Patient was also then have a leukocytosis of 21.5, and an elevated lactic acid of 2.4. Chest x-ray demonstrated focal rounded opa city of the right midlung lateral to the hilar shadow due to mass or focal pneumonia. Patient was administered 1 dose of Levaquin while in the emergency department. Repeat lactic acid was noted to be improved at 1.0. - Continue broad-spectrum antimicrobial therapy with vancomycin, azithromycin, and Zosyn. - Blood cultures, sputum cultures, and urine antigens pending. - Continue to monitor and trend CBC. Qualifiers: Sepsis type: sepsis due to unspecified organism Qualified Code(s): A41.9 - Sepsis, unspecified organism (3) Pneumonia Current Visit: Yes Status: Acute Assessment and plan: Likely source of sepsis. Plan as above. Qualifiers: Pneumonia type: due to unspecified organism Laterality: right Lung location: middle lobe of lung Qualified Code(s): J18.1 - Lobar pneumonia, unspecified organism (4) CHF exacerbation Current Visit: Yes Status: Acute Assessment and plan: Suspect fluid overload is contributing to patient's respiratory distress. Chest x-ray demonstrated findings consistent with pulmonary edema, as well as sm all bilateral pleural effusions. BNP was elevated at 422. Per cardiology, EF ~15-20%. - Lasix 40mg IVP ordered. - Strict I/O and daily weights. - Appreciate cardiology recommendations regarding management of this problem. Qualifiers: Heart failure type: unspecified Qualified Code(s): I50.9 - Heart failure, unspecified (5) Acute exacerbation of chronic obstructive airways disease Current Visit: Yes Status: Acute Assessment and plan: Suspect COPD exacerbation in setting of acute pneumonia. - IV solu-medrol 40mg Q6H. - Scheduled duonebs Q4H, with PRN albuterol nebs. (6) STEMI (ST elevation myocardial infarction) Current Visit: Yes Status: Acute Assessment and plan: S/p LHC. - Continue management per cardiology. Qualifiers: Involved coronary artery: unspecified coronary artery Qualified Code(s): I21.3 - ST elevation (STEMI) myocardial infarction of unspecified site (7) DVT prophylaxis Current Visit: Yes Status: Acute Assessment and plan: - Lovenox 60mg Q12H. - Time Spent With Patient Total time spent is greater than 50% in coordination of care (as documented) at patient's floor/unit and/or counseling patient: Internal Medicine - CN: HPI - Data of Consult Consult date: 08/21/18 Requesting Physician: Edison Suazo MD - Consult Narrative Reason for consult: COPD exacerbation History of present illness: Mr. Mckenzie is a 58 year old male with a history of COPD who presented to the emergency department for evaluation of worsening shortness of breath. While in the ED, patient was found to have elevated troponin and ST changes consistent with STEMI, and was subsequently taken to the [facility]. Patient reportedly was obtunded upon arrival to the [facility], and was subsequently intubated after verbal permission was obtained from his son. Patient was brought to the ICU after [facility], and hospitalist service was consult did for management of other medical problems. Initial vital signs obtained in the emergency department worse follows: HR 113, RR 36, BP 178/123, and oxygen saturation 92%. Patient was noted to be febrile at 101.2. Laboratory studies were significant for WBC 21.5, hemoglobin 17.6, hematocrit 53.9, glucose 201, lactic acid 2.4, BNP 422, and troponin 1.17. Chest x-ray was concerning for right middle lobe pneumonia, and patient was administered 1 dose of Levaquin while in the emergency department. He also received IV Solu-Medrol and nebulized breathing treatments for suspected COPD exacerbation. Upon arrival to the ICU, patient was intubated, but awake and alert. He voiced that he did not want to have the ET tube in place. After much conversation, patient did voice agreement with sedation and optimization of current respiratory status with goal for extubation as soon as possible. Past Med Surg Social Fam HX - Past Medical History Medical history: COPD - Social History Smoking Status: Current every day smoker Packs per day: <1/2PPD Smokeless Tobacco Status: No Alcohol use: none Drug use: marijuana - Family History Mother Cause of : CANCER Hx Family Cancer: Yes ROS unobtainable: due to endotracheal tube Internal Medicine - CN: Meds Albuterol Sulfate [Albuterol Inhaler] 2 puff IH Q4H PRN 08/21/18 [History] Budesonide/Formoterol 160/4.5 [Symbicort 160/4.5] 2 puff IH BIDR 08/21/18 [History] Gabapentin 800 mg PO TID 08/21/18 [History] Omeprazole [PriLOSEC] 40 mg PO DAILY 08/21/18 [History] Tiotropium [Spiriva] 1 puff IH DAILY 08/21/18 [History] Trazodone HCl 100 mg PO HS 08/21/18 [History] Allergy/AdvReac Type Severity Reaction Status Date / Time No Known Allergies Allergy Verified 12/28/14 19:26 Hospitalist - CN: Exam - Constitutional Vitals: Temp Pulse Resp BP Pulse Ox 101.2 F H 100 20 134/97 100 08/21/18 17:56 08/21/18 21:45 08/21/18 20:15 08/21/18 19:17 08/21/18 20:15 Exam: GENERAL: Well-developed, well-nourished adult male in mild distress secondary to endotracheal tube. HEENT: Atraumatic and normocephalic. CARDIOVASCULAR: Regular rate and rhythm. S1 and S2 present. RESPIRATORY: Diffusely decreased breath sounds bilaterally. GASTROINTESTINAL: Abdomen is soft, nontender, nondistended. Bowel sounds present 4 quadrants. EXTREMITIES: No clubbing, cyanosis, or edema. SKIN: Warm, dry, and intact. NEUROLOGIC: Alert and oriented x3. Patient is cooperative with exam. No apparent focal deficits. PSYCHIATRIC: Appropriate mood and affect. Internal Medicine - CN: Reslt - Labs CBC & Chem 7: 08/21/18 17:37 08/21/18 17:37 Labs: Short CBC 08/21/18 Range/Units 17:37 WBC 21.5 H (4.3-11.1) K/mcL Hgb 17.6 H (12.9-16.9) g/dL Hct 53.9 H (37.5-50.1) % Plt Count 273 (140-400) K/mcL Neutrophils # 10.8 H (1.6-8.9) K/mcL BMP 08/21/18 17:37 Sodium 137 Potassium 4.5 Chloride 104 Carbon Dioxide 16 L BUN 11 Creatinine 0.95 Glucose 201 H Calcium 9.8 Cardiac Enzymes 08/21/18 Range/Units 17:37 Troponin I 1.17 H* (< 0.04) ng/mL - ABG Interpretation ABG results: ABG ABG pH 7.11 pH Units (7.32-7.45) L* 08/21/18 19:50 ABG pCO2 108 mmHg (35-45) H* 08/21/18 19:50 ABG pO2 273 mmHg (85-104) H 08/21/18 19:50 ABG O2 Saturation 100 % (95-98) H 08/21/18 19:50 PT/INR, D-dimer PT 11.8 Seconds (9.4-12.1) 08/21/18 17:37 - Impressions Impressions Chest X-Ray 08/21/18 17:15 IMPRESSION: Findings consistent with pulmonary edema, and small bilateral pleural effusions. Focal rounded opacity of the right mid lung lateral to the hilar shadow which may either be due to a mass or focal pneumonia. Follow-up to ensure resolution is needed. Recommend either a follow-up chest x-ray in 2-3 weeks after treatment or a chest CT. D/ / Cesar Babin MD / Cesar Babin MD Interpreting Provider: Cesar Babin MD Consult Discharge Plan - Plan Referrals: Cesar Petersen MD [Primary Care Provider] - <Brandon Venegas - Last Filed: 08/22/18 02:51> Date of Encounter: 08/22/18 - Time Spent With Patient Total time spent is greater than 50% in coordination of care (as documented) at patient's floor/unit and/or counseling patient: Internal Medicine - CN: HPI - Data of Consult Requesting Physician: Edison Suazo MD - Consult Narrative History of present illness: Mr. Mckenzie is a 58 year old male Hospitalist - CN: Exam - Constitutional Vitals: Temp Pulse Resp BP Pulse Ox 97.9 F 87 20 75/62 98 08/21/18 23:34 08/22/18 02:00 08/22/18 02:00 08/22/18 02:00 08/22/18 02:00 Internal Medicine - CN: Reslt - Labs CBC & Chem 7: 08/21/18 17:37 08/21/18 17:37 Labs: Short CBC 08/21/18 Range/Units 17:37 WBC 21.5 H (4.3-11.1) K/mcL Hgb 17.6 H (12.9-16.9) g/dL Hct 53.9 H (37.5-50.1) % Plt Count 273 (140-400) K/mcL Neutrophils # 10.8 H (1.6-8.9) K/mcL BMP 08/21/18 17:37 Sodium 137 Potassium 4.5 Chloride 104 Carbon Dioxide 16 L BUN 11 Creatinine 0.95 Glucose 201 H Calcium 9.8 Cardiac Enzymes 08/21/18 Range/Units 17:37 Troponin I 1.17 H* (< 0.04) ng/mL - ABG Interpretation ABG results: ABG ABG pH 7.18 pH Units (7.32-7.45) L* 08/21/18 22:05 ABG pCO2 75 mmHg (35-45) H* D 08/21/18 22:05 ABG pO2 69 mmHg (85-104) L D 08/21/18 22:05 ABG O2 Saturation 88 % (95-98) L 08/21/18 22:05 PT/INR, D-dimer PT 11.8 Seconds (9.4-12.1) 08/21/18 17:37 - Impressions Impressions Chest X-Ray 08/21/18 17:15 IMPRESSION: Findings consistent with pulmonary edema, and small bilateral pleural effusions. Focal rounded opacity of the right mid lung lateral to the hilar shadow which may either be due to a mass or focal pneumonia. Follow-up to ensure resolution is needed. Recommend either a follow-up chest x-ray in 2-3 weeks after treatment or a chest CT. D/ / Cesar Babin MD / Cesar Babin MD Interpreting Provider: Cesar Babin MD Chest X-Ray 08/21/18 21:44 IMPRESSION: The endotracheal tube tip is approximately 5 cm above the chaz. Slight progression of pulmonary edema. D/ / Daryl Whittaker MD / Daryl Whittaker MD Interpreting Provider: Daryl Whittaker MD - Attending Attestation I performed a history and physical examination of the patient and discussed his management with the resident. I reviewed the resident's note and agree with the documented plan of care. Patient is a 58-year-old male with a past medical history of COPD who presented to the ED with worsening cough and shortness of breath. Found to be febrile, and mild respiratory distress with a leukocytosis concerning for pneumonia plus or minus COPD. Found to have a mildly elevated troponin and EKG changes concerning for STEMI. Patient was subsequently taken to the [facility] emergently. He arrived to the ICU from the [facility] intubated. Per ED report Patient had adamantly refused to be intubated while in the ED. I spoke with Dr. Suazo who stated that the patient became obtunded while on BiPAP after arriving to the [facility] and reportedly appeared to be going into respiratory failure; Dr. Suazo discussed impending respiratory failure with the patient's son who wished the patient made full code and intubated if necessary. Patient currently awake and responding to commands and requesting to be extubated. Son at bedside. Initial ABG suggested respiratory acidosis with a pH of 7.11 and PCO2 of 108. A repeat ABG was obtained shortly after arrival to the ICU which showed a pH of 7.18 CO2 of 75. Patient currently saturating at 94% on 60% FiO2. Review of patient's x-ray showed evidence of pulmonary vascular congestion. Per Dr. Suazo there was no significant findings of CAD, however EF was found to be 20%. Blood pressure, heart rate currently stable. As stated, patient awake and alert, following commands and gesturing that he wants the tube removed. I discussed with patient that given his chest x-ray findings and blood gas that he would most likely fail extubation and go into respiratory distress with as a possible outcome. I recommended that even though successful extubation was not a guarantee, that we at least try to stabilize and treat his pneumonia, COPD and vascular congestion in order to optimize his respiratory status. Patient's son at bedside urged the same sentiment to his father. Patient eventually nodded and agreed to this course of treatment. At this point will titrate up patient's sedation, continue with broad-spectrum antibiotics and treatment for pneumonia and COPD. Will give one- time dose of Lasix as due to concern for vascular congestion; patient's renal function currently stable. We will keep patient full code for now.
[2018-08-21 22:12] LABS: ABG Base Excess -3 mEq/L (-2 to 3); ABG HCO3 28 mEq/L (21-27); ABG Oxygen Saturation 88 % (95-98); ABG PCO2 75 mmHg (35-45); ABG PH 7.18 pH Units (7.32-7.45); ABG PO2 69 mmHg (85-104); ABG TCO2 30 mEq/L (20-26); Blood Gas Modality ASSIST CONTROL; Blood Gas PEEP 5 cm H2O; Blood Gas Respiration Rate 20; Blood Gas VT 480 cc
[2018-08-21] MEDS: FentaNYL (PF) 1,000 MCG in 0.9 % Sodium Chloride 80 ML IVC SCH (22:28)
--- NOTE | 2018-08-21 22:39 | Event Note ---
Date of Encounter: 08/21/18 Time of Encounter: 22:24 Patient is a 58-year-old male with a past medical history of COPD who presented to the ED with worsening cough and shortness of breath. Found to be febrile, and mild respiratory distress with a leukocytosis concerning for pneumonia plus or minus COPD. Found to have a mildly elevated troponin and EKG changes concerning for STEMI. Patient was subsequently taken to the [facility] emergently. He arrived to the ICU from the [facility] intubated. Per ED report Patient had adamantly refused to be intubated while in the ED. I spoke with Dr. Suazo who stated that the patient became obtunded while on BiPAP after arriving to the [facility] and reportedly appeared to be going into respiratory failure; Dr. Suazo discussed impending respiratory failure with the patient's son who wished the patient made full code and intubated if necessary. Patient currently awake and responding to commands and requesting to be extubated. Son at bedside. Initial ABG suggested respiratory acidosis with a pH of 7.11 and PCO2 of 108. A repeat ABG was obtained shortly after arrival to the ICU which showed a pH of 7.18 CO2 of 75. Patient currently saturating at 94% on 60% FiO2. Review of patient's x-ray showed evidence of pulmonary vascular congestion. Per Dr. Suazo there was no significant findings of CAD, however EF was found to be 20%. Blood pressure, heart rate currently stable. As stated, patient awake and alert, following commands and gesturing that he wants the tube removed. I discussed with patient that given his chest x-ray findings and blood gas that he would most likely fail extubation and go into respiratory distress with as a possible outcome. I recommended that even though successful extubation was not a guarantee, that we at least try to stabilize and treat his pneumonia, COPD and vascular congestion in order to optimize his respiratory status. Patient's son at bedside urged the same sentiment to his father. Patient eventually nodded and agreed to this course of treatment. At this point will titrate up patient's sedation, continue with broad-spectrum antibiotics and treatment for pneumonia and COPD. Will give one-time dose of Lasix as due to concern for vascular congestion; patient's renal function currently stable. We will keep patient full code for now.
[2018-08-21] MEDS ORDERED: *HR* Midazolam HCl 2 MG/2 ML VIAL IVP ONE (22:50)
[2018-08-21] MEDS ORDERED: Naloxone 0.4 MG/ML INJ IVP PRN (22:54)
[2018-08-21] MEDS ORDERED: *HR* Midazolam HCl 2 MG/2 ML VIAL ONE (22:55)
[2018-08-21] MEDS ORDERED: Albuterol 2.5 MG/3 ML NEBULIZER IH PRN (23:09)
[2018-08-21] MEDS ORDERED: Furosemide 40 MG/4 ML VIAL IVP ONE (23:12)
[2018-08-21] MEDS: MethylPREDNISolone 40 MG/ML VIAL IVP SCH (23:26)
[2018-08-21] MEDS ORDERED: D5% in Water 1,000 ML IVC PRN (23:28)
[2018-08-21] MEDS ORDERED: Dextrose Gel 15 GM/37.5 ML TUBE PO PRN ×2 (23:28)
[2018-08-21] MEDS ORDERED: *HR* Dextrose 50 % in Water (Syg) 50 ML SYRINGE IVP PRN (23:28)
[2018-08-21] MEDS ORDERED: Azithromycin 500 MG in D5% in Water 250 ML IVPB SCH (23:45)
[2018-08-21] MEDS: Insulin LISPRO 300 UNITS/3 ML VIAL SQ SCH (23:49)
[2018-08-21] MEDS: Ipratropium/Albuterol Neb 3 ML IH SCH (23:58)
[2018-08-22] MEDS ORDERED: Piperacillin/Tazobactam 3.375 GM in 0.9 % Sodium Chloride Mini Bag 100 ML IVPB SCH
[2018-08-22] MEDS: Dexmedetomidine HCl 400 MCG/100 ML MLS IVC SCH ×3 (03:13→20:45)
[2018-08-22] MEDS: Ipratropium/Albuterol Neb 3 ML IH SCH ×6 (03:34→23:29)
[2018-08-22] MEDS: Norepinephrine 4 MG in D5% in Water 250 ML IVC SCH ×2 (03:47→18:40)
[2018-08-22] MEDS: methylPREDNISolone 125 MG/2 ML VIAL IVP SCH ×2 (03:48→09:04)
[2018-08-22] MEDS: *HR* Enoxaparin 60 MG/0.6 ML SYRINGE SQ SCH ×2 (03:51→14:54)
[2018-08-22 04:20] LABS: ABG Base Excess -4 mEq/L (-2 to 3); ABG HCO3 26 mEq/L (21-27); ABG Oxygen Saturation 99 % (95-98); ABG PCO2 64 mmHg (35-45); ABG PH 7.22 pH Units (7.32-7.45); ABG PO2 144 mmHg (85-104); ABG TCO2 28 mEq/L (20-26); Blood Gas Modality ASSIST CONTROL; Blood Gas PEEP 5 cm H2O; Blood Gas Respiration Rate 20; Blood Gas VT 480 cc
[2018-08-22] MEDS: FentaNYL (PF) 1,000 MCG in 0.9 % Sodium Chloride 80 ML IVC SCH ×2 (05:05→18:30)
[2018-08-22] MEDS: Insulin LISPRO 300 UNITS/3 ML VIAL SQ SCH ×4 (05:17→23:05)
[2018-08-22] MEDS: MethylPREDNISolone 40 MG/ML VIAL IVP SCH ×3 (05:18→23:05)
[2018-08-22] MEDS ORDERED: cefTRIAXone 1,000 MG in 0.9 % Sodium Chloride Mini Bag 100 ML IVPB ONE (08:00)
[2018-08-22] MEDS ORDERED: *HR* Digoxin 0.5 MG/2 ML AMPUL IVP SCH (09:00)
[2018-08-22] MEDS ORDERED: Azithromycin 500 MG in D5% in Water 250 ML IVPB SCH ×2 (09:00→21:00)
--- NOTE | 2018-08-22 09:37 | Pulmonology Consult Note ---
<Donavon Spring - Last Filed: 08/22/18 11:18> Date of Encounter: 08/22/18 Time of Encounter: 10:54 Assessment and Plan (1) Acute respiratory failure Current Visit: Yes Status: Acute Suspect secondary to exacerbation of congestive heart failure and COPD with concern for pneumonia On initial presentation, patient was tachypneic with respiratory rate of 36. 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 Repeat ABG at 22:05 was slightly improved, with 7.18, PCO2 75, PO2 69, HCO3 28, and 88% oxygen saturation. ABG 08/22/18: PH of 7.22, PCO2 of 64, PO2 of 144 within HCO3 of 26 Patient will remain intubated and on ventilation We will continue this time with Precedex, fentanyl and Versed We will stop vancomycin and Zosyn today, start Rocephin and continue azithromycin Follow along with cardiology with stat echocardiogram Respiratory infection panel ordered Qualifiers: Respiratory failure complication: hypoxia and hypercapnia Qualified Code(s): J96.01 - Acute respiratory failure with hypoxia; J96.02 - Acute respiratory failure with hypercapnia (2) Acute exacerbation of chronic obstructive airways disease Current Visit: Yes Status: Acute Suspect COPD exacerbation in setting of acute pneumonia. - IV solu-medrol 40mg Q68H. - Scheduled duonebs Q4H, with PRN albuterol nebs. (3) CHF exacerbation Current Visit: Yes Status: Acute Suspect fluid overload is contributing to patient's respiratory distress. Chest x-ray demonstrated findings consistent with pulmonary edema, as well as small bilateral pleural effusions. BNP was elevated at 422. Echocardiogram shows ejection fraction of 15-20%, with findings that may suggest stress-induced cardiomyopathy, there is also note of moderate to severe aortic regurgitation On patient's arrival, there was concern for STEMI, patient was taken to the Charge Master Analyst which showed mild coronary artery disease, without intervention. Patient is unable to be placed on a beta melvin or a statin at this time due to hypotension. Per cardiology recommendation patient was placed on amiodarone and digoxin. - Lasix 40mg IVP yesterday. We will hold today until BMP is resulted - Strict I/O and daily weights. Qualifiers: Heart failure type: unspecified Qualified Code(s): I50.9 - Heart failure, unspecified (4) Sepsis Current Visit: Yes Status: Acute On arrival, patient had positive surgical criteria including tachycardia, febrile with a leukocytosis Patient was initially started on vancomycin, Zosyn and Levaquin, then transitioned to azithromycin. Vancomycin and Zosyn have been stopped at this point, we will continues with ceftriaxone and azithromycin for suspected community-acquired pneumonia. Patient is currently intubated, patient agrees with intubation until respiratory status improves Continue monitoring respiratory status with repeat chest x-ray in the morning Blood culture, sputum culture pending Qualifiers: Sepsis type: sepsis due to unspecified organism Qualified Code(s): A41.9 - Sepsis, unspecified organism (5) DVT prophylaxis Current Visit: Yes Status: Acute History of Present Illness Consult date: 08/22/18 Requesting physician: Edison Suazo Chief complaint: Shortness of breath History of present illness: Patient is a 58-year-old male with history of COPD, CAD who presented into the emergency department on 08/21/2018 for evaluation of worsening shortness of breath. While in the ED, patient was found to have an elevated troponin with ST segment elevation in leads V1 through V3 concerning for STEMI, patient was subsequently taken to the Charge Master Analyst. Per ER documentation, patient did not want to be intubated while in the ER, however when patient arrived to the Charge Master Analyst he became unstable and obtunded, and was subsequently intubated. Verbal permission was obtained via the son who was with the father. Patient's initial vital signs in the ER shows patient to be tachycardic with a tachypnea and hypertension with also oxygen saturation of 92% patient was also noted be febrile 101.2. Patient's laboratory studies revealed a leukocytosis of 21.5, polycythemia with a hemoglobin of 17.6 and hematocrit of 53.9, lactic acidosis of 2.4 with an elevated BNP of 422. Troponin was elevated at 1.17. Chest x-ray showed concern for right middle lobe pneumonia versus pulmonary vascular congestion and one dose of Levaquin was given in the ER. Patient also received steroids as well as duo nebs for suspected COPD exacerbation. On arrival to the ICU, patient was intubated however were awake and alert he did voices concern that he would not like to be intubated, however following further conversations, patient is agreeable to this remain intubated until his respiratory function improved. Patient was started on vancomycin, azithromycin and Zosyn. He was placed on Precedex and Versed. Per cardiology recommendation, the patient was started on digoxin and amiodarone, left heart catheter revealed mild coronary artery disease without intervention. Echocardiogram was ordered. Overnight patient was given Lasix 40 mg IV. Today, patient is currently intubated and sedated, however is arousable, he agrees to remain intubated until his respiratory function improves. Past Med Surg Social Fam HX - Past Medical History Medical history: COPD - Social History Smoking Status: Current every day smoker Packs per day: <1/2PPD Smokeless Tobacco Status: No Alcohol use: none Drug use: marijuana - Family History Mother Cause of : CANCER Hx Family Cancer: Yes Medications and Allergies Albuterol Sulfate [Albuterol Inhaler] 2 puff IH Q4H PRN 08/21/18 [History] Budesonide/Formoterol 160/4.5 [Symbicort 160/4.5] 2 puff IH BIDR 08/21/18 [History] Gabapentin 800 mg PO TID 08/21/18 [History] Omeprazole [PriLOSEC] 40 mg PO DAILY 08/21/18 [History] Tiotropium [Spiriva] 1 puff IH DAILY 08/21/18 [History] Trazodone HCl 100 mg PO HS 08/21/18 [History] Allergy/AdvReac Type Severity Reaction Status Date / Time No Known Allergies Allergy Verified 12/28/14 19:26 ROS unobtainable: due to endotracheal tube All Systems: The remainder of the systems were reviewed and are negative Physical Examination Vital Signs: Vital Signs, Last 4 Hours Temp Pulse Resp BP Pulse Ox 08/22/18 09:21 28 91 08/22/18 07:23 28 92 08/22/18 07:10 97.6 F 08/22/18 06:00 88 25 118/91 90 General appearance: no acute distress Eyes: nonicteric ENT: oropharynx dry Effort: mildly labored Auscultation: bilateral: diminished breath sounds, rales Cardiovascular: regular rate and rhythm Gastrointestinal: normoactive bowel sounds, non-tender, non-distended Integumentary: normal Extremities: edema (1+ BL LE edema) Musculoskeletal: no deformities pupils equal and round, motor strength normal and symmetric, unable to assess due to mental status Ventilator Settings Ventilator Settings: Ventilator Settings, Last 8 Hours Ventilator Tidal Volume 480 Setting Ventilator Tidal Volume 480 Setting Ventilator Tidal Volume 480 Setting Ventilator Tidal Volume 480 Setting Ventilator Tidal Volume 480 Setting Ventilator Tidal Volume 480 Setting Ventilator Tidal Volume 480 Setting Ventilator Tidal Volume 480 Setting Ventilator Tidal Volume 480 Setting Ventilator Tidal Volume 480 Setting Ventilator Respiratory Rate 20 Setting Ventilator Respiratory Rate 20 Setting Ventilator Respiratory Rate 20 Setting Ventilator Respiratory Rate 20 Setting Ventilator Respiratory Rate 20 Setting Ventilator Respiratory Rate 20 Setting Ventilator Respiratory Rate 20 Setting Ventilator Respiratory Rate 20 Setting Ventilator Respiratory Rate 20 Setting Ventilator Respiratory Rate 20 Setting Actual Respiratory Rate 29 Actual Respiratory Rate 28 Actual Respiratory Rate 20 Actual Respiratory Rate 20 Positive End Expiratory 5 Pressure Positive End Expiratory 5 Pressure Positive End Expiratory 5 Pressure Positive End Expiratory 5 Pressure Positive End Expiratory 5 Pressure Positive End Expiratory 5 Pressure Positive End Expiratory 5 Pressure Positive End Expiratory 5 Pressure Positive End Expiratory 5 Pressure Positive End Expiratory 5 Pressure Peak Inspiratory Airway 18 Pressure Peak Inspiratory Airway 24 Pressure Peak Inspiratory Airway 15 Pressure Peak Inspiratory Airway 36 Pressure Results - Laboratory Findings CBC and BMP: 08/22/18 10:43 08/22/18 10:43 ABG ABG pH 7.22 pH Units (7.32-7.45) L 08/22/18 04:17 ABG pCO2 64 mmHg (35-45) H 08/22/18 04:17 ABG pO2 144 mmHg (85-104) H 08/22/18 04:17 ABG O2 Saturation 99 % (95-98) H 08/22/18 04:17 PT/INR, D-dimer PT 11.8 Seconds (9.4-12.1) 08/21/18 17:37 Abnormal lab findings: Abnormal lab results WBC 21.5 K/mcL (4.3-11.1) H 08/21/18 17:37 Hgb 17.6 g/dL (12.9-16.9) H 08/21/18 17:37 Hct 53.9 % (37.5-50.1) H 08/21/18 17:37 10.8 K/mcL (1.6-8.9) H 08/21/18 17:37 8.5 K/mcL (0.6-4.6) H 08/21/18 17:37 1.8 K/mcL (0.0-1.3) H 08/21/18 17:37 Present (Not Present) A 08/21/18 17:37 APTT 37.0 Seconds (26.0-36.0) H 08/21/18 17:37 ABG pH 7.22 pH Units (7.32-7.45) L 08/22/18 04:17 ABG pCO2 64 mmHg (35-45) H 08/22/18 04:17 ABG pO2 144 mmHg (85-104) H 08/22/18 04:17 ABG HCO3 28 mEq/L (21-27) H 08/21/18 22:05 ABG Total CO2 28 mEq/L (20-26) H 08/22/18 04:17 ABG O2 Saturation 99 % (95-98) H 08/22/18 04:17 ABG Base Excess -4 mEq/L (-2 to 3) L 08/22/18 04:17 Carbon Dioxide 16 mEq/L (23-29) L 08/21/18 17:37 Glucose 201 mg/dL (70-105) H 08/21/18 17:37 POC Glucose 178 mg/dL (70-99) H 08/22/18 05:10 Lactic Acid 2.4 mmol/L (0.5-2.2) H 08/21/18 18:42 1.17 ng/mL (< 0.04) H* 08/21/18 17:37 B-Natriuretic Peptide 422 pg/mL (Less than 100) H 08/21/18 17:37 - Microbiology Findings Microbiology Findings: Microbiology, Last 48 Hours 08/22/18 02:35 Legionella Antigen - Final Urine,[place] Streptococcus pneumoniae Antigen (M - Final 08/21/18 17:27 Blood Culture - Preliminary Peripheral Venipuncture Culture is incubating and being continuously monitored for growth. Final report to follow. 08/21/18 17:37 Blood Culture - Preliminary Peripheral Venipuncture Culture is incubating and being continuously monitored for growth. Final report to follow. - Diagnostic Findings Chest x-ray: report reviewed, image reviewed - Clinical Findings Intake & Output: Intake & Output 08/21/18 08/22/18 08/22/18 23:59 07:59 15:59 Intake Total 680.6 / 680.6 470 / 470 Output Total 200 / 200 350 / 350 Balance 480.6 / 480.6 120 / 120 Weight 64.728 kg 64.1 kg Consult Discharge Plan - Plan Referrals: Cesar Petersen MD [Primary Care Provider] - <John Keating W - Last Filed: 08/22/18 13:52> Date of Encounter: 08/22/18 All Systems: The remainder of the systems were reviewed and are negative Physical Examination Vital Signs: Vital Signs, Last 4 Hours Temp Pulse Resp BP Pulse Ox 08/22/18 12:20 97.6 F 08/22/18 11:46 26 93 08/22/18 11:00 75 82/69 93 08/22/18 10:00 80 93/75 91 Ventilator Settings Ventilator Settings: Ventilator Settings, Last 8 Hours Ventilator Tidal Volume 480 Setting Ventilator Tidal Volume 480 Setting Ventilator Tidal Volume 480 Setting Ventilator Tidal Volume 480 Setting Ventilator Respiratory Rate 20 Setting Ventilator Respiratory Rate 20 Setting Ventilator Respiratory Rate 20 Setting Ventilator Respiratory Rate 20 Setting Actual Respiratory Rate 26 Actual Respiratory Rate 29 Actual Respiratory Rate 28 Positive End Expiratory 5 Pressure Positive End Expiratory 5 Pressure Positive End Expiratory 5 Pressure Positive End Expiratory 5 Pressure Peak Inspiratory Airway 27 Pressure Peak Inspiratory Airway 18 Pressure Peak Inspiratory Airway 24 Pressure Results - Laboratory Findings CBC and BMP: 08/22/18 10:43 08/22/18 10:43 ABG ABG pH 7.22 pH Units (7.32-7.45) L 08/22/18 04:17 ABG pCO2 64 mmHg (35-45) H 08/22/18 04:17 ABG pO2 144 mmHg (85-104) H 08/22/18 04:17 ABG O2 Saturation 99 % (95-98) H 08/22/18 04:17 PT/INR, D-dimer PT 11.8 Seconds (9.4-12.1) 08/21/18 17:37 Abnormal lab findings: Abnormal lab results WBC 13.0 K/mcL (4.3-11.1) H 08/22/18 10:43 Hgb 17.6 g/dL (12.9-16.9) H 08/21/18 17:37 Hct 53.9 % (37.5-50.1) H 08/21/18 17:37 11.7 K/mcL (1.6-8.9) H 08/22/18 10:43 8.5 K/mcL (0.6-4.6) H 08/21/18 17:37 1.8 K/mcL (0.0-1.3) H 08/21/18 17:37 Present (Not Present) A 08/21/18 17:37 APTT 37.0 Seconds (26.0-36.0) H 08/21/18 17:37 ABG pH 7.22 pH Units (7.32-7.45) L 08/22/18 04:17 ABG pCO2 64 mmHg (35-45) H 08/22/18 04:17 ABG pO2 144 mmHg (85-104) H 08/22/18 04:17 ABG HCO3 28 mEq/L (21-27) H 08/21/18 22:05 ABG Total CO2 28 mEq/L (20-26) H 08/22/18 04:17 ABG O2 Saturation 99 % (95-98) H 08/22/18 04:17 ABG Base Excess -4 mEq/L (-2 to 3) L 08/22/18 04:17 Carbon Dioxide 16 mEq/L (23-29) L 08/21/18 17:37 BUN 24 mg/dL (6-20) H 08/22/18 10:43 1.43 mg/dL (0.70-1.30) H 08/22/18 10:43 Est GFR (Non-Af Amer) 51 (> 60) L 08/22/18 10:43 Glucose 155 mg/dL (70-105) H 08/22/18 10:43 POC Glucose 167 mg/dL (70-99) H 08/22/18 11:02 Lactic Acid 2.4 mmol/L (0.5-2.2) H 08/21/18 18:42 Venous Ioniz Calcium 1.04 mmol/L (1.15-1.35) L 08/22/18 11:03 Phosphorus 5.3 mg/dL (2.7-4.5) H 08/22/18 10:43 1.17 ng/mL (< 0.04) H* 08/21/18 17:37 B-Natriuretic Peptide 422 pg/mL (Less than 100) H 08/21/18 17:37 Cloudy (Clear) A 08/22/18 10:30 Ur Specific [place] > 1.030 (1.010-1.025) H 08/22/18 10:30 30 mg/dL (Neg-Trace) H 08/22/18 10:30 Large (Negative) H 08/22/18 10:30 TNTC per hpf (0-3) H 08/22/18 10:30 5-15 per hpf (0-3) H 08/22/18 10:30 Ur Squamous Epith Cells Many per lpf (None-Few) H 08/22/18 10:30 Granular Casts Few per lpf (None Seen) H 08/22/18 10:30 Ur Culture Indicated? YES (NO) A 08/22/18 10:30 Parainfluenza 3 (PCR) DETECTED (Not Detect) A 08/22/18 10:35 - Microbiology Findings Microbiology Findings: Microbiology, Last 48 Hours 08/22/18 10:30 Urine Culture - Preliminary Urine,Clean Catch Culture is incubating. 08/22/18 05:15 Sputum Culture - Preliminary Sputum 08/22/18 02:35 Legionella Antigen - Final Urine,[place] Streptococcus pneumoniae Antigen (M - Final 08/21/18 17:27 Blood Culture - Preliminary Peripheral Venipuncture Culture is incubating and being continuously monitored for growth. Final report to follow. 08/21/18 17:37 Blood Culture - Preliminary Peripheral Venipuncture Culture is incubating and being continuously monitored for growth. Final report to follow. - Clinical Findings Intake & Output: Intake & Output 08/21/18 08/22/18 08/22/18 23:59 07:59 15:59 Intake Total 680.6 / 680.6 470 / 470 0 / 470 Output Total 200 / 200 350 / 500 150 / 500 Balance 480.6 / 480.6 120 / -30 -150 / -30 Weight 64.728 kg 64.1 kg - Attending Attestation I examined this patient and my medical decision-making was reviewed with the Resident Physician. I agree with the documented findings, disposition and treatment plan as described except to the extent set forth below. We independently had [id number] contact with the patient I spent 32min of Critical Care time with this patient. It involved decision making of high complexity to assess, manipulate, and support vital organ system failure and/or to prevent further life threatening deterioration of the patient's condition. The time involved in the performance of separately reportable procedures was not counted toward critical care time. Patient seen and examined at bedside Labs, radiology, chart personally reviewed. Management was reviewed during multidisciplinary critical care rounds. TRAVEL REGISTERED NURSE ICU: Increased sedation for comfort on vent goal [place] 2-3 Pulm: Acute hypoxic hypercapnic respiratory failure on vent currently persistently hypercapnic for which we will increase his minute ventilation treat the underlying cause suspected pneumonia COPD exacerbation and heart failure repeat ABG. Will reevaluate respiratory mechanics after patient is more calm and sedated; steroids and bronchodilators given Cards: Acute heart failure with reduced ejection fraction with volume overload questionable stress-induced cardiomyopathy with a left heart catheterization without evidence of obstructive coronary artery disease overall picture is consistent with this diagnosis cardiology consultation for further evaluation GI: GI prophylaxis given Nutrition: Nothing by mouth for now Renal: UOP Monitored, Cont to Trend sCr and monitor Electrolytes. ID: Suspected community-acquired pneumonia and likely de-escalate for this coverage cultures have been obtained Heme/Onc: DVT prophylaxis given Endo: Glucose Monitored Integ/MSK: Skin Care per routine ICU Nursing Protocol to prevent ulcers. Lines: All lines examined without evidence of infection : Dispo: Monitor in ICU for critical illness CODE: Full
[2018-08-22] MEDS ORDERED: Azithromycin 250 MG in D5% in Water 250 ML IVPB SCH (10:00)
--- NOTE | 2018-08-22 10:28 | Cardiology Progress Note ---
Date of Encounter: 08/22/18 Time of Encounter: 09:00 Assessment and Plan (1) STEMI (ST elevation myocardial infarction) Current Visit: Yes Status: Acute Per cardiology: -Patient was admitted with concerns for STEMI and was taken emergently to the geophysical laboratory director. -[facility] with mild CAD, however LVEF of 15-20%. -Patient was intubated in geophysical laboratory director due to worsening respiratory failure. -Patient current in ICU, intubated and sedated. -ON asa. Not on statin due to unable to take PO meds. Not on BB due to hypotension. -WIll continue to monitor. Qualifiers: Qualified Code(s): I21.3 - ST elevation (STEMI) myocardial infarction of unspecified site (2) Pneumonia Current Visit: Yes Status: Acute Per cardioogy: -PNA/COPD exacerbation. -IV steroids/nebs given. -Pt intubated as obtunded in respiratory failure. -On Antibiotics. -Appreciate pulmonary assistance with PNA, ventilator management. Qualifiers: Qualified Code(s): J18.1 - Lobar pneumonia, unspecified organism (3) Atrial flutter Current Visit: Yes Status: Acute Per cardiology: -A.flutter noted during [facility]. -Patient was started on amiodarone and digoxin due to hypotension. -Currenty SR, HR controlled. -[id number] score 2 (CAD, CHF). Currently on lovenox. -Will switch amio and dig to po. -Will determine manager intermediate anticoagulation pending clinical coarse. -Will continue to monitor. Qualifiers: Qualified Code(s): I48.92 - Unspecified atrial flutter (4) Cardiomyopathy Current Visit: Yes Status: Acute Per cardiology: -TTE with LVEF 20%. Severe LV systolic dysfunction with global and segmental wall motion abnormality. The basal segments demonstrate better wall mot ion/thickening when compared to the other segments. Findings may suggest stress-induced cardiomyopathy. LV diastolic dysfunction with elevated filling pressures. Mild mitral regurgitation. Aortic valve not optimally visualized. Moderate to severe aortic regurgitation. Mild tricuspid regurgitation.. Normally sized aortic root. Proximal ascending thoracic aorta not well visualized. -Not on BB/darshan arb due to hypotension. -Euvolemic on exam. -Consider addition of BB/darshan prior to discharge when BP will allow. -Per will check CT chest without contrast. Qualifiers: Qualified Code(s): I42.9 - Cardiomyopathy, unspecified Discussion w patient/family: The assessment and plan as outlined above was discussed with the patient who expressed understanding and agreement. All questions were answered. Thank you for involving us in the care of your patient. Please call with any questions. Discussed and reviewed with . Subjective Principal diagnosis: STEMI, PNA Interval history: Patient intubated and sedated in ICU. Responds to tactile stimuli. Objective Vital Signs, Last 4 Hours Temp Resp Pulse Ox 08/22/18 09:21 28 91 08/22/18 07:23 28 92 08/22/18 07:10 97.6 F Vital Signs Temperature 0 F L 08/21/18 17:09 Pulse Rate 113 08/21/18 17:09 Respiratory Rate 36 08/21/18 17:09 Blood Pressure 178/123 08/21/18 17:09 O2 Sat by Pulse Oximetry 92 08/21/18 17:09 Temperature 97.6 F 08/22/18 07:10 Pulse Rate 88 08/22/18 06:00 Respiratory Rate 28 08/22/18 09:21 Blood Pressure 118/91 08/22/18 06:00 O2 Sat by Pulse Oximetry 91 08/22/18 09:21 Oxygen Delivery Oxygen Delivery Bipap General: Other (Intubated and sedated. ) HEENT: Atraumatic, Normocephaly, Mucus Membranes Moist Neck: No JVD, Normal carotid pulses Cardiac: Reg Rate and Rhythm, Normal S1 and S2, Other (Diastolic murmur noted. ) Lungs: Other (Lung sounds diminished. ) Neuro: Other (Intubated and sedated. ) Abdomen: Soft Skin: No rashes noted on visualized skin, Other (Right groin access site without hematoma. ) Musculoskeletal: No Chest Wall Tenderness Extremities: No Clubbing, No Cyanosis, No Edema, Normal Pulses Results 08/22/18 10:43 08/21/18 17:37 Lab Results Impressions Chest X-Ray 08/21/18 17:15 IMPRESSION: Findings consistent with pulmonary edema, and small bilateral pleural effusions. Focal rounded opacity of the right mid lung lateral to the hilar shadow which may either be due to a mass or focal pneumonia. Follow-up to ensure resolution is needed. Recommend either a follow-up chest x-ray in 2-3 weeks after treatment or a chest CT. D/ / Cesar Babin MD / Cesar Babin MD Interpreting Provider: Cesar Babin MD Echocardiogram 08/21/18 19:16 Impressions: LVEF 20%. Severe LV systolic dysfunction with global and segmental wall motion abnormality. The basal segments demonstrate better wall motion/thickening when compared to the other segments. Findings may suggest stress-induced cardiomyopathy. LV chamber size upper limits of normal. LV diastolic dysfunction with elevated filling pressures. Normal right ventricular structure and function. Mild mitral regurgitation. Aortic valve not optimally visualized. Moderate to severe aortic regurgitation. Mild tricuspid regurgitation. Unable to estimate RVSP - patient on ventilator. Normally sized aortic root. Proximal ascending thoracic aorta not well visualized. Consider dedicated CT imaging. Left Ventricular Wall Motion: Rest Echo Findings The apex, apical inferior, mid inferior, basal inferior, apical anterior, mid anterior, basal anterior, apical septal, mid inferior septal, basal inferior septal, apical lateral, mid anterior lateral, basal anterior lateral, mid anterior septal, mid inferior lateral, basal anterior septal and basal inferior lateral hernandez were hypokinetic. Findings: Study Quality * Technically challenging due to clinical status. ECG Findings * Normal sinus rhythm. Left Ventricle * LVEF 20%. * LV chamber size upper limits of normal. * LV diastolic dysfunction with elevated filling pressures. Right Ventricle * Normal right ventricular structure and function. Left Atrium * Severely dilated left atrium. Right Atrium * Normal right atrial size. Mitral Valve * Normal mitral valve structure. * Mild mitral regurgitation. * No mitral stenosis. Aortic Valve * Aortic valve not optimally visualized. * Moderate to severe aortic regurgitation. * No aortic stenosis. Tricuspid Valve * Tricuspid valve appears normal in structure. * Mild tricuspid regurgitation. * No stenosis. Pulmonic Valve * Pulmonic valve not well visualized. Pulmonary Artery * Pulmonary artery not well visualized. Aorta * Normally sized aortic root. * Proximal ascending thoracic aorta not well visualized. Pericardium * There is no pericardial effusion present. Interatrial Septum * Interatrial septum not well evaluated. IVC * The IVC is not well evaluated. Chest X-Ray 08/21/18 21:44 IMPRESSION: The endotracheal tube tip is approximately 5 cm above the chaz. Slight progression of pulmonary edema. D/ / Daryl Whittaker MD / Daryl Whittaker MD Interpreting Provider: Daryl Whittaker MD Chest X-Ray 08/22/18 05:00 IMPRESSION: Unchanged pulmonary edema. No significant change in the appearance of the chest over the past 24 hours. Endotracheal tube in good position D/ / Cesar Babin MD / Cesar Babin MD Interpreting Provider: Cesar Babin MD X-Ray 08/22/18 09:02 IMPRESSION: 1. Nasogastric tube terminating in the gastric fundus. D/ / Len Ruiz MD / Len Ruiz MD Interpreting Provider: Len Ruiz MD Active Medications Acetaminophen (Tylenol) 500 mg PO Q6HR PRN PRN Reason: Mild Pain Stop: 02/20/19 19:17 Albuterol Sulfate (Proventil Neb) 2.5 mg IH Q2H PRN; Protocol PRN Reason: Shortness Of Breath/Wheezing Stop: 02/20/19 23:10 Albuterol/Ipratropium (Duoneb) 3 ml IH [id number] ABDELRAHMAN Stop: 02/21/19 00:01 Last Admin: 08/22/18 07:22 Dose: 3 ml Documented by: Aspirin (Aspirin) 81 mg PO DAILY ABDELRAHMAN Stop: 02/21/19 09:01 Dextrose/Water (Dextrose 50% (Syg)) 25 ml IVP AD PRN PRN Reason: Hypoglycemia Stop: 02/20/19 23:29 Digoxin (Lanoxin) 0.125 mg IVP DAILY ABDELRAHMAN Stop: 02/21/19 09:01 Enoxaparin Sodium (Lovenox) 60 mg SQ Q12H ABDELRAHMAN; Protocol Stop: 02/21/19 03:01 Last Admin: 08/22/18 03:51 Dose: 60 mg Documented by: Glucagon (Glucagen) 1 mg IM ONCE PRN PRN Reason: Hypoglycemia Stop: 02/20/19 23:29 Glucose (Gluctose) 15 gm PO ONCE PRN PRN Reason: Hypoglycemia Stop: 02/20/19 23:29 Glucose (Gluctose) 30 gm PO ONCE PRN PRN Reason: Hypoglycemia Stop: 02/20/19 23:29 Ketamine HCl 60 mg/ Sodium (Chloride) 250.6 mls @ 250.6 mls/hr IVC CONT ABDELRAHMAN Stop: 02/20/19 17:16 Last Infusion: 08/21/18 18:25 Dose: Infused Documented by: Dexmedetomidine HCl (Precedex Premix) 400 mcg in 100 mls @ 3.236 mls/hr IVC .Q24H ABDELRAHMAN; Protocol Stop: 02/20/19 18:31 Last Admin: 08/22/18 03:13 Dose: 0.7 mcg/kg/hr, 11.3 mls/hr Documented by: Fentanyl Citrate 1,000 mcg/ (Sodium Chloride) 100 mls @ 5 mls/hr IVC CONT ABDELRAHMAN; Protocol Stop: 02/20/19 19:46 Last Admin: 08/22/18 05:05 Dose: 100 mcg/hr, 10 mls/hr Documented by: Midazolam HCl 50 mg/ Sodium (Chloride) 100 mls @ 6 mls/hr IVC CONT ABDELRAHMAN; Protocol Stop: 02/20/19 19:46 Last Admin: 08/22/18 08:31 Dose: 3 mg/hr, 6 mls/hr Documented by: Amiodarone HCl/Dextrose (Amiodarone Drip Premix 360mg/200ml) 360 mg in 200 mls @ 16.667 mls/hr IVC CONT ABDELRAHMAN Stop: 02/20/19 20:16 Last Admin: 08/22/18 02:40 Dose: 0.5 mg/min, 16.7 mls/hr Documented by: Norepinephrine Bitartrate 4 mg (/ Dextrose) 254 mls @ 3.81 mls/hr IVC CONT ABDELRAHMAN; Protocol Stop: 02/20/19 19:46 Last Admin: 08/22/18 03:47 Dose: Not Given Documented by: Dextrose (Dextrose 5%) 1,000 mls @ 100 mls/hr IVC .Q10H PRN PRN Reason: HYPOGLYCEMIA Stop: 02/20/19 23:29 Azithromycin 250 mg/ Dextrose 250 mls @ 252 mls/hr IVPB Q24H ABDELRAHMAN Stop: 02/21/19 10:01 Insulin Human Lispro (Humalog) 0 units SQ Q6HR [facility]; Protocol Stop: 02/21/19 00:01 Last Admin: 08/22/18 05:17 Dose: 2 units Documented by: Methylprednisolone (Solu-Medrol) 40 mg IVP Q8HR [facility] Stop: 02/21/19 16:01 Naloxone HCl (Narcan) 0.4 mg IVP Q2MPRN PRN PRN Reason: SEE COMMENTS Stop: 02/20/19 22:55 Ondansetron HCl (Zofran) 4 mg IVP Q8HR PRN PRN Reason: Nausea And Vomiting Stop: 02/20/19 19:17 Laboratory Tests 08/21/18 08/21/18 08/21/18 17:37 17:37 19:50 WBC 21.5 H ABG pH 7.11 L* Creatinine 0.95 Troponin I 1.17 H* 08/22/18 04:17 WBC ABG pH 7.22 L Creatinine Troponin I - Imaging and Cardiology Chest Xray: report reviewed Echo: report reviewed Cardiac cath: report reviewed - EKG Interpretation EKG results cardiology: other (Telemetry reviewed in ICU.) Consult Discharge Plan - Plan Referrals: Cesar Petersen MD [Primary Care Provider] -
[2018-08-22 10:49] LABS: Bilirubin,Urine Negative (Negative); Blood,Urine Large (Negative); Clarity,Urine Cloudy (Clear); Color,Urine Yellow (Yellow); Glucose,Urine (UA) Normal (Normal); Ketones,Urine Negative (Negative); Leukocyte Esterase,Urine Negative (Negative); Nitrite,Urine Negative (Negative); Protein,Urine 30 mg/dL (Neg-Trace); Specific Gravity,Urine > 1.030 (1.010-1.025); Urobilinogen,Urine Normal (Normal)
[2018-08-22 10:51] LABS: Bacteria,Urine None Seen per hpf (None-Few); RBC,Urine TNTC per hpf (0-3); Squamous Epithelial Cell,Urine Many per lpf (None-Few)
[2018-08-22 11:01] LABS: Basophils % 0.2 %; Hematocrit 47.7 % (37.5-50.1); Immature Granulocytes % 0.5 % (0-4); Lymphocytes # 0.7 K/mcL (0.6-4.6); Lymphocytes % 5.5 %; Mean Corpuscular HGB Conc 32.3 g/dL (31.6-35.5); Mean Corpuscular Hemoglobin 31.7 pg (28.0-33.3); Mean Corpuscular Volume 98.1 fL (83.0-100.0); Mean Platelet Volume 10.1 fL (9.4-12.4); Monocytes # 0.5 K/mcL (0.0-1.3); Monocytes % 3.6 %; Neutrophils # 11.7 K/mcL (1.6-8.9); Platelet Count 168 K/mcL (140-400); Red Blood Count 4.86 M/mcL (4.19-5.50); Red Cell Distribution Width 13.5 % (11.5-14.5); Segmented Neutrophils % 90.2 %
[2018-08-22 11:05] LABS: VBG Ionized Calcium 1.04 mmol/L (1.15-1.35)
[2018-08-22 11:07] LABS: Hemoglobin 15.4 g/dL (12.9-16.9)
[2018-08-22 11:10] LABS: Granular Casts,Urine Few per lpf (None Seen); Hyaline Casts,Urine None Seen per lpf (None-Few)
[2018-08-22 11:17] LABS: BUN/Creatinine Ratio 17 (6-26); Blood Urea Nitrogen 24 mg/dL (6-20); Carbon Dioxide 23 mEq/L (23-29); Chloride 102 mEq/L (98-107); Glucose 155 mg/dL (70-105); Magnesium 2.2 mg/dL (1.6-2.6); Osmolality,Calculated 291 (280-300); Phosphorous 5.3 mg/dL (2.7-4.5); Potassium 4.8 mEq/L (3.5-5.1); Sodium 137 mEq/L (136-145); eGFR For Non-African Americans 51 (> 60)
[2018-08-22 11:38] LABS: Adenovirus Not Detected (Not Detect); Coronavirus 229E Not Detected (Not Detect); Coronavirus HKU1 Not Detected (Not Detect); Coronavirus NL63 Not Detected (Not Detect); Coronavirus OC43 Not Detected (Not Detect); Human Metapneumovirus Not Detected (Not Detect); Human Rhinovirus/Enterovirus Not Detected (Not Detect); Influenza A Subtype 2009 H1 Not Detected (Not Detect); Influenza A Untypeable Not Detected (Not Detect); Influenza B Not Detected (Not Detect); Parainfluenza Virus 1 Not Detected (Not Detect); Parainfluenza Virus 2 Not Detected (Not Detect)
[2018-08-22] MEDS: Aspirin 81 MG TAB.CHEW PO SCH (11:38)
[2018-08-22 11:39] LABS: Bordetella Pertussis Not Detected (Not Detect); Chlamydophila pneumoniae Not Detected (Not Detect); Mycoplasma pneumoniae Not Detected (Not Detect); Parainfluenza Virus 3 DETECTED (Not Detect); Parainfluenza Virus 4 Not Detected (Not Detect); Respiratory Syncytial Virus Not Detected (Not Detect)
[2018-08-22] MEDS: *HR* Amiodarone 200 MG TABLET PO SCH (12:48)
[2018-08-22 14:30] LABS: ABG Base Excess 0 mEq/L (-2 to 3); ABG HCO3 27 mEq/L (21-27); ABG Oxygen Saturation 92 % (95-98); ABG PCO2 50 mmHg (35-45); ABG PH 7.34 pH Units (7.32-7.45); ABG PO2 70 mmHg (85-104); ABG TCO2 28 mEq/L (20-26); Blood Gas PEEP 5 cm H2O; Blood Gas Respiration Rate 20; Blood Gas VT 480 cc
[2018-08-23] MEDS: *HR* Enoxaparin 60 MG/0.6 ML SYRINGE SQ SCH ×2 (02:14→15:36)
[2018-08-23] MEDS: Ipratropium/Albuterol Neb 3 ML IH SCH ×6 (03:25→23:17)
[2018-08-23] MEDS: FentaNYL (PF) 1,000 MCG in 0.9 % Sodium Chloride 80 ML IVC SCH (04:09)
[2018-08-23 04:54] LABS: ABG Base Excess 3 mEq/L (-2 to 3); ABG HCO3 30 mEq/L (21-27); ABG Oxygen Saturation 92 % (95-98); ABG PCO2 53 mmHg (35-45); ABG PH 7.36 pH Units (7.32-7.45); ABG PO2 66 mmHg (85-104); ABG TCO2 32 mEq/L (20-26); Blood Gas Modality VC; Blood Gas PEEP 5 cm H2O; Blood Gas Respiration Rate 20; Blood Gas VT 480 cc
[2018-08-23] MEDS: Insulin LISPRO 300 UNITS/3 ML VIAL SQ SCH ×4 (05:06→23:40)
[2018-08-23] MEDS: Dexmedetomidine HCl 400 MCG/100 ML MLS IVC SCH (05:39)
[2018-08-23 07:09] LABS: Basophils % 0.1 %; Hematocrit 43.5 % (37.5-50.1); Hemoglobin 14.3 g/dL (12.9-16.9); Immature Granulocytes % 0.5 % (0-4); Lymphocytes # 0.8 K/mcL (0.6-4.6); Lymphocytes % 5.7 %; Mean Corpuscular HGB Conc 32.9 g/dL (31.6-35.5); Mean Corpuscular Hemoglobin 32.1 pg (28.0-33.3); Mean Corpuscular Volume 97.5 fL (83.0-100.0); Mean Platelet Volume 10.3 fL (9.4-12.4); Monocytes # 0.6 K/mcL (0.0-1.3); Monocytes % 4.1 %; Neutrophils # 13.1 K/mcL (1.6-8.9); Platelet Count 144 K/mcL (140-400); Red Blood Count 4.46 M/mcL (4.19-5.50); Red Cell Distribution Width 13.6 % (11.5-14.5); Segmented Neutrophils % 89.6 %
[2018-08-23 07:35] LABS: BUN/Creatinine Ratio 29 (6-26); Blood Urea Nitrogen 33 mg/dL (6-20); Calcium 9.3 mg/dL (8.6-10.3); Carbon Dioxide 27 mEq/L (23-29); Chloride 102 mEq/L (98-107); Glucose 145 mg/dL (70-105); Osmolality,Calculated 298 (280-300); Potassium 4.9 mEq/L (3.5-5.1); Sodium 139 mEq/L (136-145); eGFR For Non-African Americans > 60 (> 60)
[2018-08-23] MEDS: MethylPREDNISolone 40 MG/ML VIAL IVP SCH ×3 (08:45→23:40)
--- NOTE | 2018-08-23 10:06 | Electrocardiograph Report ---
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
--- NOTE | 2018-08-23 10:07 | Electrocardiograph Report ---
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
[2018-08-23] MEDS: *HR* Digoxin 0.125 MG TABLET PO SCH (10:52)
[2018-08-23] MEDS: *HR* Amiodarone 200 MG TABLET PO SCH (10:53)
[2018-08-23] MEDS: Aspirin 81 MG TAB.CHEW PO SCH (10:53)
--- NOTE | 2018-08-23 11:20 | Pulmonology Progress Note ---
<Hallie Sandoval - Last Filed: 08/23/18 19:01> Date of Encounter: 08/23/18 Time of Encounter: 10:00 Assessment and Plan (1) Acute respiratory failure Current Visit: Yes Status: Acute Was presented to the ED complaining of worsening shortness of breath ongoing for a few days. Was noted to have elevated troponin and had emergent heart. Her Did not show any coronary vessel disease and was diagnosed with stress induced cardiomyopathy On his pH was 7.11 subsequent pH today has been within normal limits Respiratory panel was positive for parainfluenza Extubated today and requiring BiPAP Would like to remain comfortable Continue Precedex Continue nebulizer continue fentanyl Continue ceftriaxone Qualifiers: Respiratory failure complication: hypoxia and hypercapnia Qualified Code(s): J96.01 - Acute respiratory failure with hypoxia; J96.02 - Acute respiratory failure with hypercapnia (2) Acute exacerbation of chronic obstructive airways disease Current Visit: Yes Status: Acute CT of the chest shows severe emphysema bilateral lungs. Has an exacerbation likely secondary to parainfluenza -Continue IV Solu-Medrol 40 mg every 8 HR -Continue scheduled DuoNeb and when necessary albuterol (3) CHF exacerbation Current Visit: Yes Status: Acute Echo showed EF of 15-20%, likely exacerbation secondary to stress-induced cardio myopathy also has moderate to severe aortic regurgitation BMP on admission was noted to be 422 There is diffuse crackles well-controlled lungs upon auscultation -Continue nitroglycerin drip -Cardiology recommends continuing beta melvin and statin -Received 60 mg of IV Lasix today with significant urinary output of 1900 -Continue to monitor intake and output Qualifiers: Heart failure type: unspecified Qualified Code(s): I50.9 - Heart failure, unspecified (4) STEMI (ST elevation myocardial infarction) Current Visit: Yes Status: Acute At presentation complained of worsening shortness of breath was noted to have ST elevation myocardial infarction. Was taken to [facility] and coronary vessels did not show any disease processes -Cardiology is following they recommend continuing statin and beta melvin -Continue cardiac monitoring Qualifiers: Involved coronary artery: unspecified coronary artery Qualified Code(s): I21.3 - ST elevation (STEMI) myocardial infarction of unspecified site (5) DVT prophylaxis Current Visit: Yes Status: Acute Continue Lovenox Subjective Principal diagnosis: STEMI, PNA Interval history: Mr. Mckenzie was at bedside this morning. His vitals were within normal limits this morning although his blood pressure increased during the day due to ongoing anxiety. He was awake and alert and was intubated, he was eager to get his ET tube out. His blood pressure has started to increase due to anxiety and given his low EF he was started on nitroglycerin drip. His respiratory status continued to worsen and his son and daughter as well as he declined intubation. Is currently on BiPAP and would like to remain comfortable. Objective PUL Vital signs: Last Vital Signs Temp 98.2 F 08/23/18 07:54 Pulse 57 08/23/18 11:00 Resp 18 08/23/18 11:00 BP 116/67 08/23/18 11:00 Pulse Ox 96 08/23/18 11:00 General appearance: no acute distress, alert Eyes: nonicteric ENT: oropharynx moist Neck: supple, no lymphadenopathy Effort: very labored Auscultation: bilateral: wheezes, rhonchi Cardiovascular: other (Regular rhythm with tachycardia) Gastrointestinal: normoactive bowel sounds, soft, non-tender Integumentary: normal Extremities: no cyanosis, no edema, pulses normal Musculoskeletal: no deformities normal mental status, pupils equal and round mood appropriate, affect normal Ventilator Settings Ventilator Settings: Ventilator Settings, Last 8 Hours Ventilator Tidal Volume 480 Setting Ventilator Tidal Volume 480 Setting Ventilator Tidal Volume 480 Setting Ventilator Tidal Volume 480 Setting Ventilator Tidal Volume 480 Setting Ventilator Tidal Volume 480 Setting Ventilator Respiratory Rate 20 Setting Ventilator Respiratory Rate 20 Setting Ventilator Respiratory Rate 20 Setting Ventilator Respiratory Rate 20 Setting Ventilator Respiratory Rate 20 Setting Ventilator Respiratory Rate 20 Setting Actual Respiratory Rate 14 Actual Respiratory Rate 24 Actual Respiratory Rate 24 Actual Respiratory Rate 24 Actual Respiratory Rate 24 Actual Respiratory Rate 25 Positive End Expiratory 5 Pressure Positive End Expiratory 5 Pressure Positive End Expiratory 5 Pressure Positive End Expiratory 5 Pressure Positive End Expiratory 5 Pressure Positive End Expiratory 5 Pressure Positive End Expiratory 5 Pressure Positive End Expiratory 5 Pressure Positive End Expiratory 5 Pressure Peak Inspiratory Airway 11 Pressure Peak Inspiratory Airway 11 Pressure Peak Inspiratory Airway 11 Pressure Peak Inspiratory Airway 33 Pressure Peak Inspiratory Airway 23 Pressure Peak Inspiratory Airway 33 Pressure Peak Inspiratory Airway 33 Pressure Peak Inspiratory Airway 28 Pressure Results - Laboratory Findings CBC and BMP: 08/23/18 06:41 08/23/18 06:41 ABG ABG pH 7.36 pH Units (7.32-7.45) 08/23/18 04:52 ABG pCO2 53 mmHg (35-45) H 08/23/18 04:52 ABG pO2 66 mmHg (85-104) L 08/23/18 04:52 ABG O2 Saturation 92 % (95-98) L 08/23/18 04:52 PT/INR, D-dimer PT 11.8 Seconds (9.4-12.1) 08/21/18 17:37 Abnormal lab findings: Abnormal lab results WBC 14.7 K/mcL (4.3-11.1) H 08/23/18 06:41 Hgb 17.6 g/dL (12.9-16.9) H 08/21/18 17:37 Hct 53.9 % (37.5-50.1) H 08/21/18 17:37 13.1 K/mcL (1.6-8.9) H 08/23/18 06:41 8.5 K/mcL (0.6-4.6) H 08/21/18 17:37 1.8 K/mcL (0.0-1.3) H 08/21/18 17:37 Present (Not Present) A 08/21/18 17:37 APTT 37.0 Seconds (26.0-36.0) H 08/21/18 17:37 ABG pH 7.22 pH Units (7.32-7.45) L 08/22/18 04:17 ABG pCO2 53 mmHg (35-45) H 08/23/18 04:52 ABG pO2 66 mmHg (85-104) L 08/23/18 04:52 ABG HCO3 30 mEq/L (21-27) H 08/23/18 04:52 ABG Total CO2 32 mEq/L (20-26) H 08/23/18 04:52 ABG O2 Saturation 92 % (95-98) L 08/23/18 04:52 ABG Base Excess -4 mEq/L (-2 to 3) L 08/22/18 04:17 Carbon Dioxide 16 mEq/L (23-29) L 08/21/18 17:37 BUN 33 mg/dL (6-20) H 08/23/18 06:41 1.43 mg/dL (0.70-1.30) H 08/22/18 10:43 Est GFR (Non-Af Amer) 51 (> 60) L 08/22/18 10:43 29 (6-26) H 08/23/18 06:41 Glucose 145 mg/dL (70-105) H 08/23/18 06:41 POC Glucose 159 mg/dL (70-99) H 08/23/18 05:06 Lactic Acid 2.4 mmol/L (0.5-2.2) H 08/21/18 18:42 Venous Ioniz Calcium 1.04 mmol/L (1.15-1.35) L 08/22/18 11:03 Phosphorus 5.3 mg/dL (2.7-4.5) H 08/22/18 10:43 1.17 ng/mL (< 0.04) H* 08/21/18 17:37 B-Natriuretic Peptide 422 pg/mL (Less than 100) H 08/21/18 17:37 Cloudy (Clear) A 08/22/18 10:30 Ur Specific [place] > 1.030 (1.010-1.025) H 08/22/18 10:30 30 mg/dL (Neg-Trace) H 08/22/18 10:30 Large (Negative) H 08/22/18 10:30 TNTC per hpf (0-3) H 08/22/18 10:30 5-15 per hpf (0-3) H 08/22/18 10:30 Ur Squamous Epith Cells Many per lpf (None-Few) H 08/22/18 10:30 Granular Casts Few per lpf (None Seen) H 08/22/18 10:30 Ur Culture Indicated? YES (NO) A 08/22/18 10:30 Parainfluenza 3 (PCR) DETECTED (Not Detect) A 08/22/18 10:35 - Microbiology Findings Microbiology Findings: Microbiology, Last 48 Hours 08/22/18 10:30 Urine Culture - Preliminary Urine,Clean Catch Culture is incubating. 08/22/18 05:15 Sputum Culture - Preliminary Sputum 08/22/18 02:35 Legionella Antigen - Final Urine,[place] Streptococcus pneumoniae Antigen (M - Final 08/21/18 17:27 Blood Culture - Preliminary Peripheral Venipuncture Culture is incubating and being continuously monitored for growth. Final report to follow. 08/21/18 17:37 Blood Culture - Preliminary Peripheral Venipuncture Culture is incubating and being continuously monitored for growth. Final report to follow. - Clinical Findings Intake & Output: Intake & Output 08/22/18 08/23/18 08/23/18 23:59 07:59 15:59 Intake Total 540 / 1810 210 / 240 30 / 240 Output Total 125 / 125 Balance 540 / 1160 85 / 115 30 / 115 Weight 65 kg Consult Discharge Plan - Plan Referrals: Cesar Petersen MD [Primary Care Provider] - <Key Johnson - Last Filed: 08/23/18 21:32> Date of Encounter: 08/23/18 Objective PUL Vital signs: Last Vital Signs Temp 97.4 F L 08/23/18 19:50 Pulse 63 08/23/18 21:00 Resp 12 08/23/18 21:00 BP 97/56 08/23/18 21:00 Pulse Ox 96 08/23/18 21:00 Results - Laboratory Findings CBC and BMP: 08/23/18 06:41 08/23/18 06:41 ABG ABG pH 7.38 pH Units (7.32-7.45) 08/23/18 15:40 ABG pCO2 56 mmHg (35-45) H 08/23/18 15:40 ABG pO2 70 mmHg (85-104) L 08/23/18 15:40 ABG O2 Saturation 93 % (95-98) L 08/23/18 15:40 PT/INR, D-dimer PT 11.8 Seconds (9.4-12.1) 08/21/18 17:37 Abnormal lab findings: Abnormal lab results WBC 14.7 K/mcL (4.3-11.1) H 08/23/18 06:41 Hgb 17.6 g/dL (12.9-16.9) H 08/21/18 17:37 Hct 53.9 % (37.5-50.1) H 08/21/18 17:37 13.1 K/mcL (1.6-8.9) H 08/23/18 06:41 8.5 K/mcL (0.6-4.6) H 08/21/18 17:37 1.8 K/mcL (0.0-1.3) H 08/21/18 17:37 Present (Not Present) A 08/21/18 17:37 APTT 37.0 Seconds (26.0-36.0) H 08/21/18 17:37 ABG pH 7.22 pH Units (7.32-7.45) L 08/22/18 04:17 ABG pCO2 56 mmHg (35-45) H 08/23/18 15:40 ABG pO2 70 mmHg (85-104) L 08/23/18 15:40 ABG HCO3 34 mEq/L (21-27) H 08/23/18 15:40 ABG Total CO2 35 mEq/L (20-26) H 08/23/18 15:40 ABG O2 Saturation 93 % (95-98) L 08/23/18 15:40 ABG Base Excess 6 mEq/L (-2 to 3) H 08/23/18 15:40 Carbon Dioxide 16 mEq/L (23-29) L 08/21/18 17:37 BUN 33 mg/dL (6-20) H 08/23/18 06:41 1.43 mg/dL (0.70-1.30) H 08/22/18 10:43 Est GFR (Non-Af Amer) 51 (> 60) L 08/22/18 10:43 29 (6-26) H 08/23/18 06:41 Glucose 145 mg/dL (70-105) H 08/23/18 06:41 POC Glucose 126 mg/dL (70-99) H 08/23/18 11:36 Lactic Acid 2.4 mmol/L (0.5-2.2) H 08/21/18 18:42 Venous Ioniz Calcium 1.04 mmol/L (1.15-1.35) L 08/22/18 11:03 Phosphorus 5.3 mg/dL (2.7-4.5) H 08/22/18 10:43 1.17 ng/mL (< 0.04) H* 08/21/18 17:37 B-Natriuretic Peptide 422 pg/mL (Less than 100) H 08/21/18 17:37 1.19 ng/mL (0.00-0.15) H 08/23/18 12:28 Cloudy (Clear) A 08/22/18 10:30 Ur Specific [place] > 1.030 (1.010-1.025) H 08/22/18 10:30 30 mg/dL (Neg-Trace) H 08/22/18 10:30 Large (Negative) H 08/22/18 10:30 TNTC per hpf (0-3) H 08/22/18 10:30 5-15 per hpf (0-3) H 08/22/18 10:30 Ur Squamous Epith Cells Many per lpf (None-Few) H 08/22/18 10:30 Granular Casts Few per lpf (None Seen) H 08/22/18 10:30 Ur Culture Indicated? YES (NO) A 08/22/18 10:30 Parainfluenza 3 (PCR) DETECTED (Not Detect) A 08/22/18 10:35 - Microbiology Findings Microbiology Findings: Microbiology, Last 48 Hours 08/22/18 05:15 Sputum Culture - Preliminary Sputum 08/22/18 10:30 Urine Culture - Final Urine,Clean Catch No growth. 08/22/18 02:35 Legionella Antigen - Final Urine,[place] Streptococcus pneumoniae Antigen (M - Final 08/21/18 17:27 Blood Culture - Preliminary Peripheral Venipuncture Culture is incubating and being continuously monitored for growth. Final report to follow. 08/21/18 17:37 Blood Culture - Preliminary Peripheral Venipuncture Culture is incubating and being continuously monitored for growth. Final report to follow. - Clinical Findings Intake & Output: Intake & Output 08/23/18 08/23/18 08/23/18 07:59 15:59 23:59 Intake Total 210 / 559.2 264.2 / 559.2 85 / 559.2 Output Total 125 / 2450 1775 / 2450 550 / 2450 Balance 85 / -1890.8 -1510.8 / -1890.8 -465 / -1890.8 - Attending Attestation I saw and evaluated this patient and my medical decision-making was reviewed with the Resident Physician. I agree with the documented findings, disposition and treatment plan as described except to the extent set forth below. We independently had [id number] contact with the patient I spent 60 minutes of Critical Care time with this patient. It involved decision making of high complexity to assess, manipulate, and support vital organ system failure and/or to prevent further life threatening deterioration of the patie nt's condition. The time involved in the performance of separately reportable procedures was not counted toward critical care time. Patient seen and examined at bedside Labs, radiology, chart personally reviewed. Management was reviewed during multidisciplinary critical care rounds. WOOD BARKER: Patient is conscious oriented 3 patient passed the spontaneous breathing trial will try to extubate him to BiPAP. Pulm: Patient has acceptable oxygenation and ventilation on this low tidal volume strategy patient passed the spontaneous breathing trial since patient has significant the systolic heart failure with end-stage COPD will extubate him to BiPAP. Cards: Patient has stopped cold suitable cardiomyopathy with EF of 20% will extubate him to BiPAP will control preload and afterload will maintain sinus rhythm appreciate cardiology input. FEN-GI: Keep patient nothing by mouth as patient is dependent on BiPAP Renal: Labs and output reviewed patient responded well to diuresis. ID: To cover for pneumonia with broad-spectrum antibiotics. Heme/Onc: Labs where reviewed Endo: Glucose Monitored Integ/MSK: Skin Care per routine ICU Nursing Protocol to prevent ulcers. Lines: All lines examined without evidence of infection : Dispo: After extubating to BiPAP patient developed worsening hypoxic respiratory failure increased work of breathing patient blood pressure was high patient become more anxious 30 reduce the preload and afterload with vasodilators. Increase the dose of diuresis despite a good diuresis and adequate control preload and afterload patient workup breathing because more worse again the option of intubating and mechanical ventilation patient was not in a position to decide whether he wants intubation mechanical ventilation patient son and daughter were at bedside according to patient wishes in his best interests the decided him to proceed with comfort Measures. CODE: Full CODE STATUS was changed to DNR comfort care according to patient wishes which was voiced by his next of kin the son and daughter.
[2018-08-23] MEDS ORDERED: Furosemide 20 MG/2 ML VIAL IVP ONE (11:41)
--- NOTE | 2018-08-23 11:44 | Cardiology Progress Note ---
Date of Encounter: 08/23/18 Time of Encounter: 09:30 Assessment and Plan (1) STEMI (ST elevation myocardial infarction) Current Visit: Yes Status: Acute Per cardiology: -Patient was admitted with concerns for STEMI and was taken emergently to the [facility]. -[facility] with mild CAD, however LVEF of 15-20%. -Patient was intubated in [facility] due to worsening respiratory failure. -Patient current in ICU, intubated and sedated. -ON asa. Was Not on statin due to unable to take PO meds. Not on BB due to hypotension. -Will add statin. -WIll continue to monitor. Qualifiers: Involved coronary artery: unspecified coronary artery Qualified Code(s): I21.3 - ST elevation (STEMI) myocardial infarction of unspecified site (2) Pneumonia Current Visit: Yes Status: Acute Per cardioogy: -PNA/COPD exacerbation. -IV steroids/nebs given. -On Bipap -On Antibiotics. -Appreciate pulmonary assistance with PNA, COPD exacerbation Qualifiers: Pneumonia type: due to unspecified organism Laterality: right Lung location: middle lobe of lung Qualified Code(s): J18.1 - Lobar pneumonia, unspecified organism (3) Atrial flutter Current Visit: Yes Status: Acute Per cardiology: -A.flutter noted during [facility]. -Patient was started on amiodarone and digoxin due to hypotension. -Currenty SR, HR controlled. -[id number] score 2 (CAD, CHF). Currently on lovenox. -Will determine senior living anticoagulation pending clinical coarse. -Will continue to monitor. Qualifiers: Atrial flutter type: unspecified Qualified Code(s): I48.92 - Unspecified atrial flutter (4) Cardiomyopathy Current Visit: Yes Status: Acute Per cardiology: -TTE with LVEF 20%. Severe LV systolic dysfunction with global and segmental wall motion abnormality. The basal segments demonstrate better wall motion/thickening when compared to the other segments. Findings may suggest stress-induced cardiomyopathy. LV diastolic dysfunction with elevated filling pressures. Mild mitral regurgitation. Aortic valve not optimally visualized. Moderate to severe aortic regurgitation. Mild tricuspid regurgitation.. Normally sized aortic root. Proximal ascending thoracic aorta not well visualized. -Not on BB/darshan arb due to hypotension. -CHest CT with mild interstitial edema. -Euvolemic on exam. -Consider addition of BB/darshan prior to discharge when BP will allow. -Will give one time dose of lasix today. Qualifiers: Cardiomyopathy type: unspecified Qualified Code(s): I42.9 - Cardiomyopathy, unspecified Discussion w patient/family: The assessment and plan as outlined above was discussed with the patient who expressed understanding and agreement. All questions were answered. Thank you for involving us in the care of your patient. Please call with any questions. Discussed and reviewed with Subjective Principal diagnosis: STEMI, PNA Interval history: Patient extubated, on Bipap. Denies chest pain. Complains of being thirsty, otherwise denies complaints. Objective Vital Signs, Last 4 Hours Temp Pulse Resp BP Pulse Ox 08/23/18 11:00 57 18 116/67 96 08/23/18 10:00 66 17 102/69 98 08/23/18 09:00 67 17 93/68 97 08/23/18 08:18 25 95 08/23/18 08:00 77 16 120/72 95 08/23/18 07:54 98.2 F General: Conversant, Other (Conversational dypsnea noted. ) HEENT: Atraumatic, Normocephaly, Mucus Membranes Moist Neck: No JVD, Normal carotid pulses Cardiac: Reg Rate and Rhythm, Normal S1 and S2, No Murmur Lungs: Other (Lung sounds diminished throughout. On Bipap. ) Neuro: Alert and responsive, No focal deficits noted Abdomen: Soft, Non-Tender Skin: No rashes noted on visualized skin, Other (Right groin access site without ecchymosis or hematoma. ) Musculoskeletal: No Chest Wall Tenderness Extremities: No Clubbing, No Cyanosis, No Edema, Normal Pulses Results 08/23/18 06:41 08/23/18 06:41 Lab Results Impressions Chest CT 08/22/18 11:13 IMPRESSION: 1. Diffuse bilateral bronchiolitis, possibly due to aspiration. 2. Mild interstitial edema. D/ / Len Ruiz MD / Len Ruiz MD Interpreting Provider: Len Ruiz MD Chest X-Ray 08/23/18 06:00 IMPRESSION: Improving pulmonary edema. D/ / Daryl Whittaker MD / Daryl Whittaker MD Interpreting Provider: Daryl Whittaker MD Active Medications Acetaminophen (Tylenol) 500 mg PO Q6HR PRN PRN Reason: Mild Pain Stop: 02/20/19 19:17 Albuterol Sulfate (Proventil Neb) 2.5 mg IH Q2H PRN; Protocol PRN Reason: Shortness Of Breath/Wheezing Stop: 02/20/19 23:10 Albuterol/Ipratropium (Duoneb) 3 ml IH [id number] ABDELRAHMAN Stop: 02/21/19 00:01 Last Admin: 08/23/18 07:17 Dose: 3 ml Documented by: Amiodarone HCl (Cordarone) 200 mg PO DAILY [facility] Stop: 02/21/19 11:16 Last Admin: 08/23/18 10:53 Dose: 200 mg Documented by: Aspirin (Aspirin) 81 mg PO DAILY ABDELRAHMAN Stop: 02/21/19 09:01 Last Admin: 08/23/18 10:53 Dose: 81 mg Documented by: Dextrose/Water (Dextrose 50% (Syg)) 25 ml IVP AD PRN PRN Reason: Hypoglycemia Stop: 02/20/19 23:29 Digoxin (Lanoxin) 0.125 mg PO DAILY [facility] Stop: 02/22/19 09:01 Last Admin: 08/23/18 10:52 Dose: Not Given Documented by: Enoxaparin Sodium (Lovenox) 60 mg SQ Q12H ABDELRAHMAN; Protocol Stop: 02/21/19 03:01 Last Admin: 08/23/18 02:14 Dose: 60 mg Documented by: Glucagon (Glucagen) 1 mg IM ONCE PRN PRN Reason: Hypoglycemia Stop: 02/20/19 23:29 Glucose (Gluctose) 15 gm PO ONCE PRN PRN Reason: Hypoglycemia Stop: 02/20/19 23:29 Glucose (Gluctose) 30 gm PO ONCE PRN PRN Reason: Hypoglycemia Stop: 02/20/19 23:29 Dexmedetomidine HCl (Precedex Premix) 400 mcg in 100 mls @ 3.236 mls/hr IVC .Q24H ABDELRAHMAN; Protocol Stop: 02/20/19 18:31 Last Titration: 08/23/18 10:57 Dose: 0 mcg/kg/hr, 0 mls/hr Documented by: Fentanyl Citrate 1,000 mcg/ (Sodium Chloride) 100 mls @ 5 mls/hr IVC CONT ABDELRAHMAN; Protocol Stop: 02/20/19 19:46 Last Titration: 08/23/18 06:30 Dose: 0 mcg/hr, 0 mls/hr Documented by: Midazolam HCl 50 mg/ Sodium (Chloride) 100 mls @ 6 mls/hr IVC CONT ABDELRAHMAN; Protocol Stop: 02/20/19 19:46 Last Titration: 08/23/18 06:30 Dose: 0 mg/hr, 0 mls/hr Documented by: Norepinephrine Bitartrate 4 mg (/ Dextrose) 254 mls @ 3.81 mls/hr IVC CONT ABDELRAHMAN; Protocol Stop: 02/20/19 19:46 Last Admin: 08/22/18 18:40 Dose: Not Given Documented by: Dextrose (Dextrose 5%) 1,000 mls @ 100 mls/hr IVC .Q10H PRN PRN Reason: HYPOGLYCEMIA Stop: 02/20/19 23:29 Insulin Human Lispro (Humalog) 0 units SQ Q6HR ABDELRAHMAN; Protocol Stop: 02/21/19 00:01 Last Admin: 08/23/18 11:36 Dose: Not Given Documented by: Methylprednisolone (Solu-Medrol) 40 mg IVP Q8HR ABDELRAHMAN Stop: 02/21/19 16:01 Last Admin: 08/23/18 08:45 Dose: 40 mg Documented by: Naloxone HCl (Narcan) 0.4 mg IVP Q2MPRN PRN PRN Reason: SEE COMMENTS Stop: 02/20/19 22:55 Ondansetron HCl (Zofran) 4 mg IVP Q8HR PRN PRN Reason: Nausea And Vomiting Stop: 02/20/19 19:17 Laboratory Tests 08/22/18 08/23/18 08/23/18 10:43 06:41 06:41 WBC 14.7 H Hgb 14.3 Creatinine 1.43 H TSH 1.116 08/23/18 06:41 WBC Hgb Creatinine 1.12 TSH - Imaging and Cardiology Chest Xray: report reviewed Echo: report reviewed Cardiac cath: report reviewed - EKG Interpretation EKG results cardiology: other (Telemetry reviewed in ICU, SR.) Consult Discharge Plan - Plan Referrals: Cesar Petersen MD [Primary Care Provider] -
[2018-08-23] MEDS ORDERED: *HR* LORazepam 2 MG/ML VIAL ONE ×2 (13:59→15:35)
[2018-08-23] MEDS ORDERED: Nitroglycerin 25 MG/250 ML INFUS..BTL IVC ONE (14:01)
[2018-08-23] MEDS ORDERED: *HR* LORazepam 2 MG/ML VIAL IVP ONE ×4 (14:08→16:15)
[2018-08-23] MEDS ORDERED: Nitroglycerin 25 MG/250 ML INFUS..BTL IVC SCH (14:15)
[2018-08-23] MEDS ORDERED: Furosemide 40 MG/4 ML VIAL ONE (14:22)
[2018-08-23] MEDS ORDERED: Furosemide 40 MG/4 ML VIAL IVP ONE (14:25)
[2018-08-23 15:48] LABS: ABG Base Excess 6 mEq/L (-2 to 3); ABG HCO3 34 mEq/L (21-27); ABG Oxygen Saturation 93 % (95-98); ABG PCO2 56 mmHg (35-45); ABG PH 7.38 pH Units (7.32-7.45); ABG PO2 70 mmHg (85-104); ABG TCO2 35 mEq/L (20-26)
--- NOTE | 2018-08-23 16:59 | Event Note ---
Date of Encounter: 08/23/18 Time of Encounter: 16:45 58-year-old male with a COPD, systolic heart failure went into severe respiratory distress after extubation on BiPAP in presence of family the options were given for intubation and mechanical ventilation with the possibility of reversibility and also has a chance of ventilator dependence patient is completely altered due to toxic/metabolic encephalopathy so the addition was maintained by the son according to patient wishes when he was conscious and oriented that he never wanted intubation and mechanical ventilation according to patient wishes family decided patient to be DNR comfort care the whole ICU team was around the patient and be agreed upon to pursue with patient wishes according to the family decision. The CODE STATUS was changed to DNR comfort care.
[2018-08-23] MEDS: Metoprolol XL (24 HR) Succ 25 MG TAB.ER.24H PO SCH (17:57)
[2018-08-23] MEDS: Norepinephrine 4 MG in D5% in Water 250 ML IVC SCH (17:58)
[2018-08-24] MEDS: FentaNYL (PF) 1,000 MCG in 0.9 % Sodium Chloride 80 ML IVC SCH (01:18)
[2018-08-24] MEDS: *HR* Enoxaparin 60 MG/0.6 ML SYRINGE SQ SCH (02:43)
[2018-08-24] MEDS: Ipratropium/Albuterol Neb 3 ML IH SCH ×5 (03:12→20:13)
[2018-08-24 05:58] LABS: Basophils % 0.1 %; Hematocrit 43.4 % (37.5-50.1); Hemoglobin 14.3 g/dL (12.9-16.9); Immature Granulocytes % 0.3 % (0-4); Lymphocytes # 0.7 K/mcL (0.6-4.6); Lymphocytes % 5.9 %; Mean Corpuscular HGB Conc 32.9 g/dL (31.6-35.5); Mean Corpuscular Hemoglobin 31.7 pg (28.0-33.3); Mean Corpuscular Volume 96.2 fL (83.0-100.0); Mean Platelet Volume 10.4 fL (9.4-12.4); Monocytes # 0.3 K/mcL (0.0-1.3); Monocytes % 2.4 %; Platelet Count 169 K/mcL (140-400); Red Blood Count 4.51 M/mcL (4.19-5.50); Red Cell Distribution Width 13.9 % (11.5-14.5); Segmented Neutrophils % 91.3 %
[2018-08-24 06:16] LABS: BUN/Creatinine Ratio 47 (6-26); Blood Urea Nitrogen 42 mg/dL (6-20); Calcium 9.1 mg/dL (8.6-10.3); Carbon Dioxide 31 mEq/L (23-29); Chloride 96 mEq/L (98-107); Glucose 143 mg/dL (70-105); Osmolality,Calculated 291 (280-300); Potassium 4.7 mEq/L (3.5-5.1); Sodium 134 mEq/L (136-145); eGFR For Non-African Americans > 60 (> 60)
[2018-08-24] MEDS: Insulin LISPRO 300 UNITS/3 ML VIAL SQ SCH (06:52)
[2018-08-24] MEDS: *HR* LORazepam 2 MG/ML VIAL IVP PRN ×5 (07:44→21:23)
[2018-08-24] MEDS: MethylPREDNISolone 40 MG/ML VIAL IVP SCH ×2 (08:01→17:12)
[2018-08-24] MEDS: Aspirin 81 MG TAB.CHEW PO SCH (08:06)
[2018-08-24] MEDS: Metoprolol XL (24 HR) Succ 25 MG TAB.ER.24H PO SCH (08:09)
[2018-08-24] MEDS: *HR* Digoxin 0.125 MG TABLET PO SCH (08:09)
[2018-08-24] MEDS: *HR* Amiodarone 200 MG TABLET PO SCH (08:09)
[2018-08-24] MEDS ORDERED: cefTRIAXone 1,000 MG in Water for inj. (sterile) 20 ML 10 ML IVP SCH (09:00)
--- NOTE | 2018-08-24 10:58 | Cardiology Progress Note ---
Date of Encounter: 08/24/18 Time of Encounter: 10:56 Assessment and Plan (1) Systolic CHF Current Visit: Yes Status: Acute Heart failure with reduced ejection fraction. Newly diagnosed cardiopathy. Etiology is nonischemic given mild CAD noted on cardiac catheterization. Agree with aspirin and beta melvin therapy. Okay to continue digoxin given CHF and episode of atrial fluter. Start low-dose statin. At Entresto 24/26 mg BID. Start low-dose oral maintenance Lasix. We'll titrate BB as tolerated. CHF education provided. Recommend repeat TTE in 3 months after a period of goal directed medical therapy. Qualifiers: Heart failure chronicity: acute Qualified Code(s): I50.21 - Acute systolic (congestive) heart failure (2) Atrial flutter Current Visit: Yes Status: Acute Currently in sinus rhythm. Noted during cardiac catheterization. Given improving overall status and history of significant underlying lung disease, recommend stopping amiodarone for now. Continue beta melvin, titrate as tolerated. Given that atrial flutter occurred during significant respiratory distress and lack of recurrence, recommend monitor for now. If atrial flutter returns, will need to consider snf AC. Qualifiers: Atrial flutter type: unspecified Qualified Code(s): I48.92 - Unspecified atrial flutter (3) Acute respiratory failure Current Visit: Yes Status: Acute Multifactorial respiratory insufficiency related to underlying severe COPD, pneumonia, and heart failure. Continue supportive care. Your ICU management regarding pulmonary issues. Qualifiers: Respiratory failure complication: hypoxia and hypercapnia Qualified Code(s): J96.01 - Acute respiratory failure with hypoxia; J96.02 - Acute respiratory failure with hypercapnia Discussion w patient/family: The assessment and plan as outlined above was discussed with the patient and/or family members who expressed understanding and agreement. All questions were answered. Thank you for involving us in the care of your patient. Please call with any questions. Subjective Principal diagnosis: CHF, PNA Interval history: Clinically, the patient appears improved. His respiratory rate has slowed down. He is coherent, able to communicate on BiPAP. He denies chest pain or discomfort. States his breathing is getting closer to baseline. Objective Vital Signs, Last 4 Hours Temp Pulse Resp BP Pulse Ox 08/24/18 09:00 79 20 142/78 96 08/24/18 08:20 79 14 133/82 92 08/24/18 08:15 96.9 F L 08/24/18 08:00 81 08/24/18 07:45 18 96 08/24/18 07:00 72 14 102/72 91 General: Conversant, Other (Tachypnea remains, but appears better than previous.) HEENT: Atraumatic, Normocephaly, Mucus Membranes Moist Neck: No JVD, Normal carotid pulses Cardiac: Other (Distant, regular. No obvious murmurs.) Lungs: Other (Shallow, difficult to appreciate rales or rhonchi) Neuro: Alert and responsive, No focal deficits noted Abdomen: Soft, Non-Tender Skin: No rashes noted on visualized skin Musculoskeletal: No Chest Wall Tenderness Extremities: No Clubbing, No Cyanosis, No Edema Results 08/24/18 04:49 08/24/18 04:49 Lab Results 08/24/18 08/24/18 04:49 04:49 WBC 12.0 H Hgb 14.3 Hct 43.4 Plt Count 169 Sodium 134 L Potassium 4.7 Chloride 96 L Carbon Dioxide 31 H BUN 42 H Creatinine 0.90 Glucose 143 H Calcium 9.1 - Imaging and Cardiology Echo: report reviewed - EKG Interpretation EKG results cardiology: personally reviewed Consult Discharge Plan - Plan Referrals: Cesar Petersen MD [Primary Care Provider] -
[2018-08-24] MEDS ORDERED: Furosemide 20 MG TABLET PO PRN ×2 (11:03→13:53)
--- NOTE | 2018-08-24 11:07 | Palliative - Consult Note ---
<James Blum - Last Filed: 08/24/18 16:05> Date of Encounter: 08/24/18 Time of Encounter: 11:05 - Assessment and Plan (1) Goals of care, counseling/discussion Current Visit: Yes Status: Acute Assessment and plan: Spoke with the patient and his daughter Yulia, and friend Adia at bedside in the ICU. Discussed patient's clinical status with severe COPD, CAD, and CHF. Pt is aware of his poor prognosis with acute respiratory failure along with the aforementioned chronic diseases. He was extubated yesterday, but is still requiring BIPAP frequently. Pt reports he does not wish to be intubated again even if for a short period of time. Discussed CODE STATUS. On admission state form was signed for DNR-CCA, however with patient's goals of remaining comfortable and going home, patient elected to change to DNR-CC. State form filled out and place in chart. Discussed and educated patient on hospice care. Pt is agreeable to home hospice on discharge. Reports he will be moving in with his nephew LUIS ALBERTO and LUIS ALBERTO's Анна. Reports they live in [place]. Анна is a [employer] and states she knows [facility] and [facility] provide care to their address. Pt and family report they want to decide which service they want overnight. Will discuss again in the morning. Also discussed healthcare POA in the event the patient were to become obtunded or unresponsive. Pt chose his [id number] Анна as his POA, with alternates of his daughter Yulia and son Percy. Forms were signed and witnessed. Copies provided to family and original copy placed in chart. (2) Palliative care encounter Current Visit: Yes Status: Acute (3) COPD (chronic obstructive pulmonary disease) with emphysema Current Visit: Yes Status: Acute Assessment and plan: Moderate to severe emphysema demonstrated on CT chest from 08/22 Management per primary Qualifiers: Emphysema type: unspecified Qualified Code(s): J43.9 - Emphysema, unspecified (4) Acute respiratory failure Current Visit: Yes Status: Acute Assessment and plan: Largely BIPAP dependent at this time Management per primary Qualifiers: Respiratory failure complication: hypoxia and hypercapnia Qualified Cod e(s): J96.01 - Acute respiratory failure with hypoxia; J96.02 - Acute respiratory failure with hypercapnia (5) Systolic CHF Current Visit: Yes Status: Acute Assessment and plan: as seen during heart cath and on echo Management per cardio Qualifiers: Heart failure chronicity: acute Qualified Code(s): I50.21 - Acute systolic (congestive) heart failure (6) Coronary artery disease Current Visit: Yes Status: Acute Assessment and plan: As seen during cardiac cath earlier this admission Management per cardio Qualifiers: Coronary Disease-Associated Artery/Lesion type: [place] artery [place] vs. transplanted heart: [place] heart Associated angina: angina presence unspecified Qualified Code(s): I25.10 - Atherosclerotic heart disease of [place] coronary artery without angina pectoris Palliative-CN HPI - Data of Consult Consult date: 08/24/18 Requesting Physician: Edison Suazo MD Primary Care Provider: Cesar Petersen MD - Consult Narrative Palliative Care/Comfort Measures: Hospice care History of present illness: Mr. Mckenzie is a 58 year old male with a PMH of COPD and anxiety. He originally presented to the ED on 08/21/18 complaining of shortness of breath of 2 days duration. EKG in the ED showed some ST elevations in the anterior leads which were concerning for STEMI. Cardiology was contacted and took patient to oil laboratory analyst. There was also concern for pneumonia with elevated temp at 101.2, tachycardia at 113, and leukocytosis of 21.5. Pt was empirically started on Levaquin at that time. Cardiac cath revealed 30% stenosis in the proximal LMCA, 30% stenosis in the proximal LAD, and 30% stenosis in the proximal RCA. After the cath was completed, the patient remained on mechanical ventilation in the ICU. He was successfully exubated on 08/23, but remains largely BIPAP dependent. Pt seen and examined at bedside in the ICU. His daughter Yulia, and friend Aida are at bedside. He reports he feels "ok". States his shortness of breath is grossly unchanged. Does admit to increased anxiety with his health. Reports he does not want to intubated again. At this time he does not have a POA. Denies any current pain. No nausea or vomiting. CC: Edison Suazo MD - Time Spent with Patient Time: Total time spent is greater than 50% in coordination of care (as documented) at patient's floor/unit and/or counseling patient: Past Med Surg Social Fam HX - Past Medical History Medical history: COPD - Social History Smoking Status: Current every day smoker Packs per day: <1/2PPD Smokeless Tobacco Status: No Alcohol use: none Drug use: marijuana - Family History Mother Cause of : CANCER Hx Family Cancer: Yes Medications and Allergies Albuterol Sulfate [Albuterol Inhaler] 2 puff IH Q4H PRN 08/21/18 [History] Budesonide/Formoterol 160/4.5 [Symbicort 160/4.5] 2 puff IH BIDR 08/21/18 [History] Gabapentin 800 mg PO TID 08/21/18 [History] Omeprazole [PriLOSEC] 40 mg PO DAILY 08/21/18 [History] Tiotropium [Spiriva] 1 puff IH DAILY 08/21/18 [History] Trazodone HCl 100 mg PO HS 08/21/18 [History] Allergy/AdvReac Type Severity Reaction Status Date / Time No Known Allergies Allergy Verified 12/28/14 19:26 All systems: reviewed and no additional remarkable complaints except as stated - Cardiovascular Cardiovascular ROS: dyspnea on exertion - Respiratory Respiratory: cough, dyspnea Palliative Care-Exam - Constitutional Vitals: Temp Pulse Resp BP Pulse Ox 96.9 F L 79 20 142/78 96 08/24/18 08:15 08/24/18 09:00 08/24/18 09:00 08/24/18 09:00 08/24/18 09:00 General appearance: Present: average body habitus, cooperative, no acute distress - Head Head Exam: Present: atraumatic, normal inspection, normocephalic - Eye Eye exam: Present: EOMI, normal appearance, PERRL - Respiratory Respiratory exam: Present: decreased breath sounds, wheezes, tachypnea. Absent: chest wall tenderness, respiratory distress, stridor - Expanded Respiratory Exam Location: decreased breath sounds: Left, Right, Upper, Lower, wheezes: Left, Right, Upper - Cardiovascular Cardiovascular exam: Present: RRR, +S1, +S2 - GI/Abdominal Exam GI/Abdominal exam: Present: soft. Absent: distended, tenderness - Catheter Type: Urethral (Ge) - Extremities Exam Extremities exam: Present: normal inspection. Absent: calf tenderness, pedal edema, tenderness - Back Exam Back exam: Present: normal inspection - Neurological Exam Neurological exam: Present: alert, oriented X3. Absent: facial droop, speech deficit - Expanded Neurological Exam Coma Scale Eye Opening: Spontaneous Coma Scale Motor Response: Obeys Commands Coma Scale Verbal Response: Oriented Coma Scale Total: 15 - Skin Skin exam: Present: dry, intact, warm Internal Medicine - CN: Reslt - Labs CBC & Chem 7: 08/24/18 04:49 08/24/18 04:49 Labs: Short CBC 08/24/18 Range/Units 04:49 WBC 12.0 H (4.3-11.1) K/mcL Hgb 14.3 (12.9-16.9) g/dL Hct 43.4 (37.5-50.1) % Plt Count 169 (140-400) K/mcL Neutrophils # 11.0 H (1.6-8.9) K/mcL BMP 08/24/18 04:49 Sodium 134 L Potassium 4.7 Chloride 96 L Carbon Dioxide 31 H BUN 42 H Creatinine 0.90 Glucose 143 H Calcium 9.1 - ABG Interpretation ABG results: ABG ABG pH 7.38 pH Units (7.32-7.45) 08/23/18 15:40 ABG pCO2 56 mmHg (35-45) H 08/23/18 15:40 ABG pO2 70 mmHg (85-104) L 08/23/18 15:40 ABG O2 Saturation 93 % (95-98) L 08/23/18 15:40 PT/INR, D-dimer PT 11.8 Seconds (9.4-12.1) 08/21/18 17:37 - Impressions Impressions Chest X-Ray 08/24/18 05:00 IMPRESSION: Grossly stable pulmonary edema. D/ / Daryl Whittaker MD / Daryl Whittaker MD Interpreting Provider: Daryl Whittaker MD Consult Discharge Plan - Plan Referrals: Cesar Petersen MD [Primary Care Provider] - Palliative Quality Palliative Quality: Screen for Code Status: Yes, Screen for Goals of Care: Yes, Screen for Pain: Yes, If Pain Regimen Started, Initiate Bowel Regimen: NA, Screen for Nausea/Vomitting: Yes Code Status: 08/21/18 22:54 Resuscitation Status: Active [RES] Routine Comment: Resuscitation Status: Full Code 08/23/18 16:51 CODE [Resuscitation Status: Active] [RES] Routine Comment: Resuscitation Status: DNR-Comfort Care Palliative Scale - Palliative Performance Scale How ambulatory is this patient?: Full What is patient's level of activity and evidence of disease?: Normal activity and work, Some evidence of disease How much self-care assistance does patient require?: Full How much oral intake does the patient have?: Normal What is this patient's level of consciousness?: Full Palliative Performance Score: 90 % <Neeta Vicente - Last Filed: 08/24/18 21:53> Date of Encounter: 08/24/18 Palliative-CN HPI - Data of Consult Patient: new to practice Requesting Physician: Edison Suazo MD Primary Care Provider: Cesar Petersen MD - Consult Narrative Palliative Care/Comfort Measures: Palliative care Reason for consult: goals of care History of present illness: Mr. Mckenzie is a 58 year old male CC: Edison Suazo MD - Time Spent with Patient Time: Total time spent is greater than 50% in coordination of care (as documented) at patient's floor/unit and/or counseling patient: Time with patient: 75 minutes Palliative Care-Exam - Constitutional Vitals: Temp Pulse Resp BP Pulse Ox 97.6 F 93 17 148/88 98 08/24/18 20:14 08/24/18 20:14 08/24/18 20:14 08/24/18 20:14 08/24/18 20:14 Internal Medicine - CN: Reslt - Labs CBC & Chem 7: 08/24/18 04:49 08/24/18 04:49 Labs: Short CBC 08/24/18 Range/Units 04:49 WBC 12.0 H (4.3-11.1) K/mcL Hgb 14.3 (12.9-16.9) g/dL Hct 43.4 (37.5-50.1) % Plt Count 169 (140-400) K/mcL Neutrophils # 11.0 H (1.6-8.9) K/mcL BMP 08/24/18 04:49 Sodium 134 L Potassium 4.7 Chloride 96 L Carbon Dioxide 31 H BUN 42 H Creatinine 0.90 Glucose 143 H Calcium 9.1 - ABG Interpretation ABG results: ABG ABG pH 7.38 pH Units (7.32-7.45) 08/23/18 15:40 ABG pCO2 56 mmHg (35-45) H 08/23/18 15:40 ABG pO2 70 mmHg (85-104) L 08/23/18 15:40 ABG O2 Saturation 93 % (95-98) L 08/23/18 15:40 PT/INR, D-dimer PT 11.8 Seconds (9.4-12.1) 08/21/18 17:37 - Impressions Impressions Chest X-Ray 08/24/18 05:00 IMPRESSION: Grossly stable pulmonary edema. D/ / Daryl Whittaker MD / Daryl Whittaker MD Interpreting Provider: Daryl Whittaker MD - Attending Attestation I personnaly performed history and examined the patient along with resident Dr. Blum. My clinical decision making was reviewed with resident, I agree with findings and plan as documented in resident's not except to the extent that fo llow: In summary, Mr Mckenzie is a 58 y.o. male with worsening COPD, CHF and CAD, and anxiety, that was admitted as a STEMI. LHC showed stable CAD, but EF of 15-20%. Patient was intubated for the procedure and remained intubated for 2 days, then successfully extubated. Patient remains in precarious respiratory status, refusing possible reintubation. Palliative care consulted for goals of care discussion. At the time of first assessment, patient was with daughter Yulia and close friend Catrina. Ptiet was AAOx3, very anxious, complaning of SOB . No pain. 40 minutes meeting: Discussed current medical condition, trajectory of illness, prognosis and treatment options. Explained to patient and family the concept of hospice, and that based on CHF and respiratory failure, patient is hospice elligible. Also discussed the option of continuing agressive care. Patient stated that it is very important that he can stay home and at home He would like to return home with hospice once stable. Patient has 2 children, a nephew LUIS ALBERTO and Анна, and Catrina. He will be moving in with LUIS ALBERTO and Анна to help with his care. Discussed advanced care planning, DNRCC frm and POA forms signed. Total ACP time 20 minutes Total time with the patient: >75 minutes. Palliative Quality Code Status: 08/21/18 22:54 Resuscitation Status: Active [RES] Routine Comment: Resuscitation Status: Full Code 08/23/18 16:51 CODE [Resuscitation Status: Active] [RES] Routine Comment: Resuscitation Status: DNR-Comfort Care
--- NOTE | 2018-08-24 11:12 | Pulmonology Progress Note ---
<Hallie Sandoval - Last Filed: 08/24/18 16:39> Date of Encounter: 08/24/18 Time of Encounter: 09:35 Assessment and Plan (1) Acute respiratory failure Current Visit: Yes Status: Acute Was presented to the ED complaining of worsening shortness of breath ongoing for a few days. A multifocal secondary to viral pneumonia versus CHF versus anxiety Was noted to have elevated troponin and had emergent heart. Did not show any coronary vessel disease and was diagnosed with stress induced cardiomyopathy On 08/21/18 his pH was 7.11 subsequent pH yesterday was within normal limits Respiratory panel was positive for parainfluenza Was extubated yesterday required BiPAP but does not want any BiPAP Would like to remain comfortable Continue DuoNeb He would like to continue Solu-Medrol and antibiotics treatment for a few more days If symptoms do not resolve he would like to transition to home (2) Acute exacerbation of chronic obstructive airways disease Current Visit: Yes Status: Acute CT of the chest shows severe emphysema bilateral lungs. Has an exacerbation likely secondary to parainfluenza -Continue IV Solu-Medrol 40 mg every 8 HR -Continue scheduled DuoNeb and when necessary albuterol (3) CHF exacerbation Current Visit: Yes Status: Acute Echo showed EF of 15-20%, likely exacerbation secondary to stress-induced cardio myopathy also has moderate to severe aortic regurgitation BMP on admission was noted to be 422 There is diffuse crackles well-controlled lungs upon auscultation -Continue nitroglycerin drip -Cardiology recommends continuing beta melvin and statin -Entresto started today -Lasix was ordered as when necessary has been switched to 20 mg by mouth daily -Started on low-dose atorvastatin (4) STEMI (ST elevation myocardial infarction) Current Visit: Yes Status: Acute At presentation complained of worsening shortness of breath was noted to have ST elevation myocardial infarction. Was taken to First Aid Attendant, STEMI is due to nonischemic cause -Continue 20 mg oral lasix -Continue metoprolol and atorvastatin -Cardiology started low-dose digoxin given episodes of atrial flutter (5) DVT prophylaxis Current Visit: Yes Status: Acute SCDs Subjective Principal diagnosis: CHF, PNA Interval history: Mr. Mckenzie was at bedside this morning. His vitals were within normal limits this morning although his blood pressure increased during the day due to ongoing anxiety. He was awake and alert on nasal cannula. He was not complaining of any symptoms and was eager to eat. Objective PUL Vital signs: Last Vital Signs Temp 96.9 F L 08/24/18 08:15 Pulse 79 08/24/18 09:00 Resp 20 08/24/18 09:00 BP 142/78 08/24/18 09:00 Pulse Ox 96 08/24/18 09:00 General appearance: no acute distress, alert Eyes: nonicteric ENT: oropharynx moist Neck: supple, no lymphadenopathy Auscultation: bilateral: clear (Decreased breath sounds bibasilar), wheezes Cardiovascular: regular rate and rhythm Gastrointestinal: normoactive bowel sounds, soft, non-tender, non-distended Extremities: no cyanosis, no edema, no clubbing Musculoskeletal: no deformities normal mental status, non-focal exam mood appropriate, anxious Results - Laboratory Findings CBC and BMP: 08/24/18 04:49 08/24/18 04:49 ABG ABG pH 7.38 pH Units (7.32-7.45) 08/23/18 15:40 ABG pCO2 56 mmHg (35-45) H 08/23/18 15:40 ABG pO2 70 mmHg (85-104) L 08/23/18 15:40 ABG O2 Saturation 93 % (95-98) L 08/23/18 15:40 PT/INR, D-dimer PT 11.8 Seconds (9.4-12.1) 08/21/18 17:37 Abnormal lab findings: Abnormal lab results WBC 12.0 K/mcL (4.3-11.1) H 08/24/18 04:49 Hgb 17.6 g/dL (12.9-16.9) H 08/21/18 17:37 Hct 53.9 % (37.5-50.1) H 08/21/18 17:37 11.0 K/mcL (1.6-8.9) H 08/24/18 04:49 8.5 K/mcL (0.6-4.6) H 08/21/18 17:37 1.8 K/mcL (0.0-1.3) H 08/21/18 17:37 Present (Not Present) A 08/21/18 17:37 APTT 37.0 Seconds (26.0-36.0) H 08/21/18 17:37 ABG pH 7.22 pH Units (7.32-7.45) L 08/22/18 04:17 ABG pCO2 56 mmHg (35-45) H 08/23/18 15:40 ABG pO2 70 mmHg (85-104) L 08/23/18 15:40 ABG HCO3 34 mEq/L (21-27) H 08/23/18 15:40 ABG Total CO2 35 mEq/L (20-26) H 08/23/18 15:40 ABG O2 Saturation 93 % (95-98) L 08/23/18 15:40 ABG Base Excess 6 mEq/L (-2 to 3) H 08/23/18 15:40 Sodium 134 mEq/L (136-145) L 08/24/18 04:49 Chloride 96 mEq/L (98-107) L 08/24/18 04:49 Carbon Dioxide 31 mEq/L (23-29) H 08/24/18 04:49 BUN 42 mg/dL (6-20) H 08/24/18 04:49 1.43 mg/dL (0.70-1.30) H 08/22/18 10:43 Est GFR (Non-Af Amer) 51 (> 60) L 08/22/18 10:43 47 (6-26) H 08/24/18 04:49 Glucose 143 mg/dL (70-105) H 08/24/18 04:49 POC Glucose 142 mg/dL (70-99) H 08/23/18 23:32 Lactic Acid 2.4 mmol/L (0.5-2.2) H 08/21/18 18:42 Venous Ioniz Calcium 1.04 mmol/L (1.15-1.35) L 08/22/18 11:03 Phosphorus 5.3 mg/dL (2.7-4.5) H 08/22/18 10:43 1.17 ng/mL (< 0.04) H* 08/21/18 17:37 B-Natriuretic Peptide 422 pg/mL (Less than 100) H 08/21/18 17:37 1.19 ng/mL (0.00-0.15) H 08/23/18 12:28 Cloudy (Clear) A 08/22/18 10:30 Ur Specific [place] > 1.030 (1.010-1.025) H 08/22/18 10:30 30 mg/dL (Neg-Trace) H 08/22/18 10:30 Large (Negative) H 08/22/18 10:30 TNTC per hpf (0-3) H 08/22/18 10:30 5-15 per hpf (0-3) H 08/22/18 10:30 Ur Squamous Epith Cells Many per lpf (None-Few) H 08/22/18 10:30 Granular Casts Few per lpf (None Seen) H 08/22/18 10:30 Ur Culture Indicated? YES (NO) A 08/22/18 10:30 Parainfluenza 3 (PCR) DETECTED (Not Detect) A 08/22/18 10:35 - Microbiology Findings Microbiology Findings: Microbiology, Last 48 Hours 08/22/18 05:15 Sputum Culture - Preliminary Sputum 08/22/18 10:30 Urine Culture - Final Urine,Clean Catch No growth. - Clinical Findings Intake & Output: Intake & Output 08/23/18 08/24/18 08/24/18 23:59 07:59 15:59 Intake Total 85 / 559.2 545 / 795 250 / 795 Output Total 550 / 2450 600 / 1050 450 / 1050 Balance -465 / -1890.8 -55 / -255 -200 / -255 Weight 61 kg Consult Discharge Plan - Plan Referrals: Cesar Petersen MD [Primary Care Provider] - <Key Johnson - Last Filed: 08/24/18 22:59> Date of Encounter: 08/24/18 Objective PUL Vital signs: Last Vital Signs Temp 97.6 F 08/24/18 20:14 Pulse 93 08/24/18 20:14 Resp 17 08/24/18 20:14 BP 148/88 08/24/18 20:14 Pulse Ox 98 08/24/18 20:14 Results - Laboratory Findings CBC and BMP: 08/24/18 04:49 08/24/18 04:49 ABG ABG pH 7.38 pH Units (7.32-7.45) 08/23/18 15:40 ABG pCO2 56 mmHg (35-45) H 08/23/18 15:40 ABG pO2 70 mmHg (85-104) L 08/23/18 15:40 ABG O2 Saturation 93 % (95-98) L 08/23/18 15:40 PT/INR, D-dimer PT 11.8 Seconds (9.4-12.1) 08/21/18 17:37 Abnormal lab findings: Abnormal lab results WBC 12.0 K/mcL (4.3-11.1) H 08/24/18 04:49 Hgb 17.6 g/dL (12.9-16.9) H 08/21/18 17:37 Hct 53.9 % (37.5-50.1) H 08/21/18 17:37 11.0 K/mcL (1.6-8.9) H 08/24/18 04:49 8.5 K/mcL (0.6-4.6) H 08/21/18 17:37 1.8 K/mcL (0.0-1.3) H 08/21/18 17:37 Present (Not Present) A 08/21/18 17:37 APTT 37.0 Seconds (26.0-36.0) H 08/21/18 17:37 ABG pH 7.22 pH Units (7.32-7.45) L 08/22/18 04:17 ABG pCO2 56 mmHg (35-45) H 08/23/18 15:40 ABG pO2 70 mmHg (85-104) L 08/23/18 15:40 ABG HCO3 34 mEq/L (21-27) H 08/23/18 15:40 ABG Total CO2 35 mEq/L (20-26) H 08/23/18 15:40 ABG O2 Saturation 93 % (95-98) L 08/23/18 15:40 ABG Base Excess 6 mEq/L (-2 to 3) H 08/23/18 15:40 Sodium 134 mEq/L (136-145) L 08/24/18 04:49 Chloride 96 mEq/L (98-107) L 08/24/18 04:49 Carbon Dioxide 31 mEq/L (23-29) H 08/24/18 04:49 BUN 42 mg/dL (6-20) H 08/24/18 04:49 1.43 mg/dL (0.70-1.30) H 08/22/18 10:43 Est GFR (Non-Af Amer) 51 (> 60) L 08/22/18 10:43 47 (6-26) H 08/24/18 04:49 Glucose 143 mg/dL (70-105) H 08/24/18 04:49 POC Glucose 152 mg/dL (70-99) H 08/24/18 13:41 Lactic Acid 2.4 mmol/L (0.5-2.2) H 08/21/18 18:42 Venous Ioniz Calcium 1.04 mmol/L (1.15-1.35) L 08/22/18 11:03 Phosphorus 5.3 mg/dL (2.7-4.5) H 08/22/18 10:43 1.17 ng/mL (< 0.04) H* 08/21/18 17:37 B-Natriuretic Peptide 422 pg/mL (Less than 100) H 08/21/18 17:37 1.19 ng/mL (0.00-0.15) H 08/23/18 12:28 Cloudy (Clear) A 08/22/18 10:30 Ur Specific [place] > 1.030 (1.010-1.025) H 08/22/18 10:30 30 mg/dL (Neg-Trace) H 08/22/18 10:30 Large (Negative) H 08/22/18 10:30 TNTC per hpf (0-3) H 08/22/18 10:30 5-15 per hpf (0-3) H 08/22/18 10:30 Ur Squamous Epith Cells Many per lpf (None-Few) H 08/22/18 10:30 Granular Casts Few per lpf (None Seen) H 08/22/18 10:30 Ur Culture Indicated? YES (NO) A 08/22/18 10:30 Parainfluenza 3 (PCR) DETECTED (Not Detect) A 08/22/18 10:35 - Microbiology Findings Microbiology Findings: Microbiology, Last 48 Hours 08/22/18 05:15 Sputum Culture - Preliminary Sputum 08/22/18 10:30 Urine Culture - Final Urine,Clean Catch No growth. - Clinical Findings Intake & Output: Intake & Output 08/24/18 08/24/18 08/24/18 07:59 15:59 23:59 Intake Total 545 / 965 300 / 965 120 / 965 Output Total 600 / 2950 1650 / 2950 700 / 2950 Balance -55 / -1984 -1350 / -1984 -580 / -1984 Weight 61 kg - Attending Attestation - Attending Attestation I saw and evaluated this patient and my medical decision-making was reviewed with the Resident Physician. I agree with the documented findings, disposition and treatment plan as described except to the extent set forth below. We independently had [id number] contact with the patient Patient seen and examined at bedside Labs, radiology, chart personally reviewed. Management was reviewed during multidisciplinary critical care rounds. INSURANCE CASE MANAGER: Patient is conscious oriented 3 patient is still on and off anxious patient changes her goals of care Pulm: Patient has acceptable oxygenation and ventilation on this low tidal volume strategy patient passed the spontaneous breathing trial since patient has significant the systolic heart failure with end-stage COPD will extubate him to BiPAP. 08/24 patient developed anxiety attack which was sent systolic heart failure and afterload preload in the background of end-stage COPD patient developed worsening VQ mismatch after patient changes his goals of Comfort care patient is getting a lot of antianxiety medication that is helping his V/Q mismatch. To continue with steroids Cards: Patient has tak[place]ubo cardiomyopathy with EF of 20% will extubate him to BiPAP will control preload and afterload will maintain sinus rhythm appreciate cardiology input. Continue with diuresis this can be comfort measure. 08/24 patient has change his goals of care. FEN-GI: Advance diet as tolerated patient has change goals of care Renal: Labs and output reviewed patient responded well to diuresis. ID: To cover for pneumonia with broad-spectrum antibiotics. Heme/Onc: Labs where reviewed Endo: Glucose Monitored Integ/MSK: Skin Care per routine ICU Nursing Protocol to prevent ulcers. Lines: All lines examined without evidence of infection : Dispo: Since patient changed his goals of care we will transfer him to hospitalist service. CODE: DNC
[2018-08-24] MEDS ORDERED: SACUBITRIL/VALSARTAN 24/26 MG TABLET PO SCH (11:15)
[2018-08-24] MEDS ORDERED: Ondansetron 4 MG/2 ML VIAL IVP PRN (13:53)
[2018-08-24] MEDS ORDERED: Albuterol 2.5 MG/3 ML NEBULIZER IH PRN (13:53)
[2018-08-24] MEDS ORDERED: Dextrose Gel 15 GM/37.5 ML TUBE PO PRN ×2 (13:53)
[2018-08-24] MEDS ORDERED: *HR* Dextrose 50 % in Water (Syg) 50 ML SYRINGE IVP PRN (13:53)
[2018-08-24] MEDS ORDERED: Dexmedetomidine HCl 400 MCG/100 ML MLS IVC SCH (13:53)
[2018-08-24] MEDS ORDERED: Naloxone 0.4 MG/ML INJ IVP PRN (13:53)
[2018-08-24] MEDS ORDERED: D5% in Water 1,000 ML IVC PRN (13:53)
[2018-08-24] MEDS ORDERED: *HR* Heparin 5,000 UNIT/ML VIAL SQ SCH (14:00)
[2018-08-24] MEDS: *HR* Heparin 5,000 UNIT/ML VIAL SQ SCH ×2 (15:07→21:30)
[2018-08-24] MEDS: ALPRAZolam 1 MG TABLET PO PRN (15:07)
[2018-08-24] MEDS: traZODone 50 MG TABLET PO SCH (21:18)
[2018-08-24] MEDS: SACUBITRIL/VALSARTAN 24/26 MG TABLET PO SCH (21:18)
[2018-08-24] MEDS: MORPHINE SUL Oral CONC 10 MG/0.5 ML ORAL.SYG SL PRN (21:21)
[2018-08-25] MEDS: Ipratropium/Albuterol Neb 3 ML IH SCH ×6 (00:06→20:21)
[2018-08-25] MEDS: MethylPREDNISolone 40 MG/ML VIAL IVP SCH ×4 (00:17→23:36)
[2018-08-25] MEDS: *HR* Heparin 5,000 UNIT/ML VIAL SQ SCH ×3 (05:16→21:01)
[2018-08-25] MEDS: *HR* LORazepam 2 MG/ML VIAL IVP PRN ×7 (05:17→23:36)
[2018-08-25] MEDS: MORPHINE SUL Oral CONC 10 MG/0.5 ML ORAL.SYG SL PRN ×5 (05:31→21:01)
[2018-08-25] MEDS: Metoprolol XL (24 HR) Succ 25 MG TAB.ER.24H PO SCH (07:42)
[2018-08-25] MEDS: ALPRAZolam 1 MG TABLET PO PRN (07:42)
[2018-08-25] MEDS: cefTRIAXone 1,000 MG in Water for inj. (sterile) 20 ML 10 ML IVP SCH (07:43)
[2018-08-25] MEDS: SACUBITRIL/VALSARTAN 24/26 MG TABLET PO SCH ×2 (07:44→21:00)
[2018-08-25] MEDS: Aspirin 81 MG TAB.CHEW PO SCH (07:44)
[2018-08-25] MEDS: *HR* Digoxin 0.125 MG TABLET PO SCH (07:44)
[2018-08-25] MEDS: Furosemide 20 MG TABLET PO SCH (07:44)
--- NOTE | 2018-08-25 11:28 | Internal Med Progress Note ---
Hospitalist Progress Note - Encounter Date of Encounter: 08/25/18 Time of Encounter: 09:55 - Subjective Interval History: Patient is a 58y/o male with hx of COPD, anxiety who was admitted for STEMI. Pt underwent LHC and was noted to have mild CAD. He was also found to have systolic CHF with reduced EF. Hospital course was complicated by acute respiratory failure requiring intubation. He was managed in the ICU and successfully extubated. Pt was noted to be in respiratory distress post extubation and expressed that he wants to be DNR/DNI. Palliative care was consulted. Pt was started on comfort care measures as per patient's wishes. Pt seen and examined at bedside this morning. He is resting in bed and saturating well on nasal cannula. He reports of being very anxious and requesting Ativan at this time. He states he still feels short of breath but better compared to previous day. Denies any fever, chills, or chest pain at this time. Palliative care is on board and pt is scheduled for possible discharge to [facility] in am (08/26/18). Ten point ROS is negative except as listed above. - Exam Vitals: Temp Pulse Resp BP Pulse Ox 97.4 F L 79 16 136/84 4 08/25/18 07:27 08/25/18 07:27 08/25/18 07:38 08/25/18 07:27 08/25/18 09:38 Exam: General: No acute distress, AAO x 3, malnourished HEENT: EOMI, PERRLA, NC/AT, no scleral icterus Respiratory: decreased breath sounds, no wheezing Cardiovascular: Regular, Rate, Rhythm, No murmurs GI: Soft, Non tender, non distended, normal bowel sounds Ext: No edema, no tenderness, positive pulses Neuro: AAO x 3, no focal deficits, CN II-XII grossly intact - Assessment and Plan (1) Acute respiratory failure Current Visit: Yes Status: Acute (2) Systolic CHF Current Visit: Yes Status: Acute (3) Goals of care, counseling/discussion Current Visit: Yes Status: Acute (4) Palliative care encounter Current Visit: Yes Status: Acute (5) COPD (chronic obstructive pulmonary disease) with emphysema Current Visit: Yes Status: Acute (6) Coronary artery disease Current Visit: Yes Status: Acute - Summary of Assessment and Plan Summary of Assessment and Plan: Patient is a 58y/o male with hx of COPD, anxiety who was admitted for STEMI. Pt underwent LHC and was noted to have mild CAD. He was also found to have systolic CHF with reduced EF. Hospital course was complicated by acute respiratory failure requiring intubation. He was managed in the ICU and successfully extubated. Pt was noted to be in respiratory distress post extubation and expressed that he wants to be DNR/DNI. Palliative care was consulted. Pt was started on comfort care measures as per patient's wishes. Assessment/Plan: 1. Systolic CHF Cardiology input appreciated continue statin, digoxin, and lasix fluid restriction diet will closely monitor respiratory status 2. Acute respiratory failure likely multifactorial in the setting of severe COPD, PNA, and CHF continue systemic steroids bronchodilator support O2 supplementation will closely monitor respiratory status pulmonology input appreciated 3. Goals of Care pt on comfort care measures as per his wishes will defer to Palliative care in regards to establishing detailed goals of care in regards to continuation of systemic steroids, CHF medications, treatment for underlying infections. pain and anxiety meds as per palliative care DVT ppx: Heparin SQ Care plan discussed with patient/RN/palliative care - Time Spent with Patient Total time spent is greater than 50% in coordination of care (as documented) at patient's floor/unit and/or counseling patient: 25 - 35 minutes Internal Medicine: Result - Labs CBC & Chem 7: 08/24/18 04:49 08/24/18 04:49 - ABG Interpretation ABG results: ABG ABG pH 7.38 pH Units (7.32-7.45) 08/23/18 15:40 ABG pCO2 56 mmHg (35-45) H 08/23/18 15:40 ABG pO2 70 mmHg (85-104) L 08/23/18 15:40 ABG O2 Saturation 93 % (95-98) L 08/23/18 15:40 PT/INR, D-dimer PT 11.8 Seconds (9.4-12.1) 08/21/18 17:37 Consult Discharge Plan - Plan Referrals: Cesar Petersen MD [Primary Care Provider] - (1) Acute respiratory failure Qualifiers: Respiratory failure complication: hypoxia and hypercapnia Qualified Code(s): J96.01 - Acute respiratory failure with hypoxia; J96.02 - Acute respiratory failure with hypercapnia (2) Systolic CHF Qualifiers: Heart failure chronicity: acute Qualified Code(s): I50.21 - Acute systolic (congestive) heart failure (5) COPD (chronic obstructive pulmonary disease) with emphysema Qualifiers: Emphysema type: unspecified Qualified Code(s): J43.9 - Emphysema, unspecified (6) Coronary artery disease Qualifiers: Coronary Disease-Associated Artery/Lesion type: [place] artery [place] vs. transplanted heart: [place] heart Associated angina: angina presence unspecified Qualified Code(s): I25.10 - Atherosclerotic heart disease of [place] coronary artery without angina pectoris
--- NOTE | 2018-08-25 11:29 | Palliative Progress Note ---
Date of Encounter: 08/25/18 Time of Encounter: 09:20 - Assessment and plan (1) Anxiety Current Visit: Yes Status: Acute Assessment and plan: Patient utilized 4 mg in past 24 hrs as well as 3 doses of Roxanol. Patient still c/o anxiety. Sat at bedside and explained POC. Discussed transition to hospice care and transitioning home with nephew and niece. Patient agree to have xanax scheduled with the ativan as PRN. Will change Xanax to scheduled and continue to assess needs. (2) COPD (chronic obstructive pulmonary disease) with emphysema Current Visit: Yes Status: Acute Assessment and plan: Patient with terminal emphysema. Patient to transition home with [facility] in AM. Qualifiers: Emphysema type: unspecified Qualified Code(s): J43.9 - Emphysema, unspecified (3) Cardiomyopathy Current Visit: Yes Status: Acute Assessment and plan: Cardiology following Qualifiers: Cardiomyopathy type: unspecified Qualified Code(s): I42.9 - Cardiomyopathy, unspecified (4) Goals of care, counseling/discussion Current Visit: Yes Status: Acute Assessment and plan: Patient with terminal emphysema. Patient to transition home with [facility] in AM. Called Анна at #[phone] and discussed DME needs. Called Elham Sawyer at [facility] and reported consult and needs. Анна will get home ready today and plan for AM DC. Dr. Rosen updated on home medication needs and PC team will complete comfort medications. (5) Palliative care encounter Current Visit: Yes Status: Acute - Time Spent With Patient Total time spent is greater than 50% in coordination of care (as documented) at patient's floor/unit and/or counseling patient: Greater than 35 minutes - Subjective Interval history: Assessed at bedside. Patient alert, c/o anxiety. Discussed POC and goals for anxiety management. - Constitutional Vitals: Abnormal lab results WBC 12.0 K/mcL (4.3-11.1) H 08/24/18 04:49 Hgb 17.6 g/dL (12.9-16.9) H 08/21/18 17:37 Hct 53.9 % (37.5-50.1) H 08/21/18 17:37 11.0 K/mcL (1.6-8.9) H 08/24/18 04:49 8.5 K/mcL (0.6-4.6) H 08/21/18 17:37 1.8 K/mcL (0.0-1.3) H 08/21/18 17:37 Present (Not Present) A 08/21/18 17:37 APTT 37.0 Seconds (26.0-36.0) H 08/21/18 17:37 ABG pH 7.22 pH Units (7.32-7.45) L 08/22/18 04:17 ABG pCO2 56 mmHg (35-45) H 08/23/18 15:40 ABG pO2 70 mmHg (85-104) L 08/23/18 15:40 ABG HCO3 34 mEq/L (21-27) H 08/23/18 15:40 ABG Total CO2 35 mEq/L (20-26) H 08/23/18 15:40 ABG O2 Saturation 93 % (95-98) L 08/23/18 15:40 ABG Base Excess 6 mEq/L (-2 to 3) H 08/23/18 15:40 Sodium 134 mEq/L (136-145) L 08/24/18 04:49 Chloride 96 mEq/L (98-107) L 08/24/18 04:49 Carbon Dioxide 31 mEq/L (23-29) H 08/24/18 04:49 BUN 42 mg/dL (6-20) H 08/24/18 04:49 1.43 mg/dL (0.70-1.30) H 08/22/18 10:43 Est GFR (Non-Af Amer) 51 (> 60) L 08/22/18 10:43 47 (6-26) H 08/24/18 04:49 Glucose 143 mg/dL (70-105) H 08/24/18 04:49 POC Glucose 152 mg/dL (70-99) H 08/24/18 13:41 Lactic Acid 2.4 mmol/L (0.5-2.2) H 08/21/18 18:42 Venous Ioniz Calcium 1.04 mmol/L (1.15-1.35) L 08/22/18 11:03 Phosphorus 5.3 mg/dL (2.7-4.5) H 08/22/18 10:43 1.17 ng/mL (< 0.04) H* 08/21/18 17:37 B-Natriuretic Peptide 422 pg/mL (Less than 100) H 08/21/18 17:37 1.19 ng/mL (0.00-0.15) H 08/23/18 12:28 Cloudy (Clear) A 08/22/18 10:30 Ur Specific [place] > 1.030 (1.010-1.025) H 08/22/18 10:30 30 mg/dL (Neg-Trace) H 08/22/18 10:30 Large (Negative) H 08/22/18 10:30 TNTC per hpf (0-3) H 08/22/18 10:30 5-15 per hpf (0-3) H 08/22/18 10:30 Ur Squamous Epith Cells Many per lpf (None-Few) H 08/22/18 10:30 Granular Casts Few per lpf (None Seen) H 08/22/18 10:30 Ur Culture Indicated? YES (NO) A 08/22/18 10:30 Parainfluenza 3 (PCR) DETECTED (Not Detect) A 08/22/18 10:35 - Head Head exam: Present: atraumatic, normal inspection - Eye Eye exam: Present: PERRL Pupils: Present: PERRL - ENT ENT exam: Present: mucous membranes moist - Neck Neck exam: Present: full ROM - Respiratory Respiratory exam: Present: decreased breath sounds, prolonged expiratory phase, rhonchi - Cardiovascular Cardiovascular exam: Present: RRR, +S1, +S2 - GI/Abdominal GI/Abdominal exam: Present: normal bowel sounds, soft - Extremities Exam Extremities exam: Present: normal inspection - Back Exam Back exam: Present: tenderness - Neurological Exam Neurological exam: Present: alert, oriented X3 - Psychiatric Psychiatric exam: Present: anxious - Skin Skin exam: Present: pallor, warm Palliative Quality Palliative Quality: Screen for Code Status: Yes, Screen for Goals of Care: Yes, Screen for Pain: Yes, If Pain Regimen Started, Initiate Bowel Regimen: NA, Screen for Nausea/Vomitting: Yes Code Status: 08/21/18 22:54 Resuscitation Status: Active [RES] Routine Comment: Resuscitation Status: Full Code 08/23/18 16:51 CODE [Resuscitation Status: Active] [RES] Routine Comment: Resuscitation Status: DNR-Comfort Care - Labs CBC & Chem 7: 08/24/18 04:49 08/24/18 04:49 Labs: Laboratory Results - last 24 hr 08/24/18 08/24/18 11:26 13:41 POC Glucose 142 H 152 H - ABG Interpretation ABG results: ABG ABG pH 7.38 pH Units (7.32-7.45) 08/23/18 15:40 ABG pCO2 56 mmHg (35-45) H 08/23/18 15:40 ABG pO2 70 mmHg (85-104) L 08/23/18 15:40 ABG O2 Saturation 93 % (95-98) L 08/23/18 15:40 PT/INR, D-dimer PT 11.8 Seconds (9.4-12.1) 08/21/18 17:37 Palliative Scale - Palliative Performance Scale How ambulatory is this patient?: Full What is patient's level of activity and evidence of disease?: Normal activity a nd work, Some evidence of disease How much self-care assistance does patient require?: Full How much oral intake does the patient have?: Normal What is this patient's level of consciousness?: Full Palliative Performance Score: 90 % Consult Discharge Plan - Plan Referrals: Cesar Petersen MD [Primary Care Provider] -
--- NOTE | 2018-08-25 11:46 | Cardiology Progress Note ---
Date of Encounter: 08/25/18 Time of Encounter: 11:44 Assessment and Plan (1) Systolic CHF Current Visit: Yes Status: Acute Heart failure with reduced ejection fraction. Newly diagnosed nonischemic cardiomyopathy. Agree with aspirin and beta melvin therapy. Okay to continue digoxin given CHF and episode of atrial fluter. Start low-dose statin. At Entresto 24/26 mg BID. Start low-dose oral maintenance Lasix. We'll titrate BB as tolerated. CHF education provided. Recommend repeat TTE in 3 months after a period of goal directed medical therapy. No further inpatient cardiology recommendations. Outpatient cardiology follow-up recommended. Qualifiers: Heart failure chronicity: acute Qualified Code(s): I50.21 - Acute systolic (congestive) heart failure (2) Atrial flutter Current Visit: Yes Status: Acute Remains in sinus rhythm. Noted during cardiac catheterization, when patient was in significant respiratory distress. Given improving overall status and history of significant underlying lung disease, recommend stopping amiodarone for now. Continue beta melvin, titrate as tolerated. Given that atrial flutter occurred during significant respiratory distress and lack of recurrence, recommend monitor for now. If atrial flutter returns, will need to consider mcfp AC. Qualifiers: Atrial flutter type: unspecified Qualified Code(s): I48.92 - Unspecified atrial flutter (3) Acute respiratory failure Current Visit: Yes Status: Acute Multifactorial respiratory insufficiency related to underlying severe COPD, pneumonia, and heart failure. Continue supportive care. Your medical management regarding pulmonary issues. Qualifiers: Respiratory failure complication: hypoxia and hypercapnia Qualified Code(s): J96.01 - Acute respiratory failure with hypoxia; J96.02 - Acute respiratory failure with hypercapnia Discussion w patient/family: The assessment and plan as outlined above was discussed with the patient and/or family members who expressed understanding and agreement. All questions were answered. Thank you for involving us in the care of your patient. Please call with any questions. Subjective Principal diagnosis: CHF, PNA Interval history: Clinically, patient continues to improve. Reports he is closer to his baseline level of dyspnea. Denies chest pain or discomfort. Objective Vital Signs, Last 4 Hours Resp Pulse Ox 08/25/18 11:20 18 96 08/25/18 09:38 4 General: Conversant, No Apparent Distress HEENT: Atraumatic, Normocephaly, Mucus Membranes Moist Neck: No JVD, Normal carotid pulses Cardiac: Other (Distant but regular. No murmurs gallops or rubs.) Lungs: Other (Shallow breath sounds. Scattered rhonchi.) Neuro: Alert and responsive, No focal deficits noted Abdomen: Soft, Non-Tender Skin: No rashes noted on visualized skin Musculoskeletal: No Chest Wall Tenderness Extremities: No Clubbing, No Cyanosis, No Edema Results 08/24/18 04:49 08/24/18 04:49 - Imaging and Cardiology Echo: report reviewed Cardiac cath: report reviewed - EKG Interpretation EKG results cardiology: personally reviewed Consult Discharge Plan - Plan Referrals: Cesar Petersen MD [Primary Care Provider] -
[2018-08-25] MEDS: ALPRAZolam 1 MG TABLET PO SCH ×2 (14:30→21:00)
[2018-08-25] MEDS: traZODone 50 MG TABLET PO SCH (21:00)
[2018-08-26] MEDS: Ipratropium/Albuterol Neb 3 ML IH SCH ×7 (00:10→23:56)
[2018-08-26] MEDS: *HR* LORazepam 2 MG/ML VIAL IVP PRN ×5 (04:19→23:07)
[2018-08-26] MEDS: MORPHINE SUL Oral CONC 10 MG/0.5 ML ORAL.SYG SL PRN ×4 (04:20→20:14)
[2018-08-26] MEDS: *HR* Heparin 5,000 UNIT/ML VIAL SQ SCH ×3 (05:20→20:13)
[2018-08-26] MEDS: cefTRIAXone 1,000 MG in Water for inj. (sterile) 20 ML 10 ML IVP SCH (09:01)
[2018-08-26] MEDS: MethylPREDNISolone 40 MG/ML VIAL IVP SCH ×3 (09:06→23:07)
--- NOTE | 2018-08-26 10:35 | Palliative Progress Note ---
<James Blum - Last Filed: 08/26/18 13:50> Date of Encounter: 08/26/18 Time of Encounter: 09:00 - Assessment and plan (1) Anxiety Current Visit: Yes Status: Acute Assessment and plan: Pt was started on Xanax TID yesterday, however he continued to require 5mg of Lorazepam, as well as utilizing 40mg Roxanol in the past 24 hours. Reports continued, but improved anxiety. In an effort to decrease dose of Ativan so it may remain a prn medication for home, will escalate dose of Xanax to 1mg QID. (2) Goals of care, counseling/discussion Current Visit: Yes Status: Acute Assessment and plan: Pt planning for transition to home with [facility] as soon as DME is available at the home. The equipment should be delivered to the POA's home today as the patient is moving in with her. Will prepare comfort medications in anticipation of discharge later today. (3) Palliative care encounter Current Visit: Yes Status: Acute (4) COPD (chronic obstructive pulmonary disease) with emphysema Current Visit: Yes Status: Acute Assessment and plan: Terminal emphysema. [facility] Qualifiers: Emphysema type: unspecified Qualified Code(s): J43.9 - Emphysema, unspecified (5) Systolic CHF Current Visit: Yes Status: Acute Assessment and plan: LVEF 15-20% Cardiology on board and managing Qualifiers: Heart failure chronicity: acute Qualified Code(s): I50.21 - Acute systolic (congestive) heart failure (6) Coronary artery disease Current Visit: Yes Status: Acute Assessment and plan: per cardio recs Qualifiers: Coronary Disease-Associated Artery/Lesion type: [place] artery [place] vs. transplanted heart: [place] heart Associated angina: angina presence unspecified Qualified Code(s): I25.10 - Atherosclerotic heart disease of [place] coronary artery without angina pectoris - Time Spent With Patient Total time spent is greater than 50% in coordination of care (as documented) at patient's floor/unit and/or counseling patient: - Subjective Interval history: Pt seen and examined at bedside. Reports he is still anxious, but it has improved slightly. Denies any pain or discomfort. - Constitutional Vitals: Abnormal lab results WBC 12.0 K/mcL (4.3-11.1) H 08/24/18 04:49 Hgb 17.6 g/dL (12.9-16.9) H 08/21/18 17:37 Hct 53.9 % (37.5-50.1) H 08/21/18 17:37 11.0 K/mcL (1.6-8.9) H 08/24/18 04:49 8.5 K/mcL (0.6-4.6) H 08/21/18 17:37 1.8 K/mcL (0.0-1.3) H 08/21/18 17:37 Present (Not Present) A 08/21/18 17:37 APTT 37.0 Seconds (26.0-36.0) H 08/21/18 17:37 ABG pH 7.22 pH Units (7.32-7.45) L 08/22/18 04:17 ABG pCO2 56 mmHg (35-45) H 08/23/18 15:40 ABG pO2 70 mmHg (85-104) L 08/23/18 15:40 ABG HCO3 34 mEq/L (21-27) H 08/23/18 15:40 ABG Total CO2 35 mEq/L (20-26) H 08/23/18 15:40 ABG O2 Saturation 93 % (95-98) L 08/23/18 15:40 ABG Base Excess 6 mEq/L (-2 to 3) H 08/23/18 15:40 Sodium 134 mEq/L (136-145) L 08/24/18 04:49 Chloride 96 mEq/L (98-107) L 08/24/18 04:49 Carbon Dioxide 31 mEq/L (23-29) H 08/24/18 04:49 BUN 42 mg/dL (6-20) H 08/24/18 04:49 1.43 mg/dL (0.70-1.30) H 08/22/18 10:43 Est GFR (Non-Af Amer) 51 (> 60) L 08/22/18 10:43 47 (6-26) H 08/24/18 04:49 Glucose 143 mg/dL (70-105) H 08/24/18 04:49 POC Glucose 152 mg/dL (70-99) H 08/24/18 13:41 Lactic Acid 2.4 mmol/L (0.5-2.2) H 08/21/18 18:42 Venous Ioniz Calcium 1.04 mmol/L (1.15-1.35) L 08/22/18 11:03 Phosphorus 5.3 mg/dL (2.7-4.5) H 08/22/18 10:43 1.17 ng/mL (< 0.04) H* 08/21/18 17:37 B-Natriuretic Peptide 422 pg/mL (Less than 100) H 08/21/18 17:37 1.19 ng/mL (0.00-0.15) H 08/23/18 12:28 Cloudy (Clear) A 08/22/18 10:30 Ur Specific [place] > 1.030 (1.010-1.025) H 08/22/18 10:30 30 mg/dL (Neg-Trace) H 08/22/18 10:30 Large (Negative) H 08/22/18 10:30 TNTC per hpf (0-3) H 08/22/18 10:30 5-15 per hpf (0-3) H 08/22/18 10:30 Ur Squamous Epith Cells Many per lpf (None-Few) H 08/22/18 10:30 Granular Casts Few per lpf (None Seen) H 08/22/18 10:30 Ur Culture Indicated? YES (NO) A 08/22/18 10:30 Parainfluenza 3 (PCR) DETECTED (Not Detect) A 08/22/18 10:35 General appearance: Present: cooperative, no acute distress, thin - Head Head exam: Present: atraumatic, normal inspection, normocephalic - Eye Eye exam: Present: EOMI, normal appearance, PERRL - Respiratory Respiratory exam: Present: decreased breath sounds. Absent: rhonchi, stridor, wheezes - Cardiovascular Cardiovascular exam: Present: RRR, +S1, +S2 - Extremities Exam Extremities exam: Present: normal inspection. Absent: calf tenderness, pedal edema - Neurological Exam Neurological exam: Present: alert, oriented X3, no focal deficits - Skin Skin exam: Present: dry, intact, warm Palliative Quality Palliative Quality: Screen for Code Status: Yes, Screen for Goals of Care: Yes, Screen for Pain: Yes, If Pain Regimen Started, Initiate Bowel Regimen: NA, Screen for Nausea/Vomitting: Yes Code Status: 08/21/18 22:54 Resuscitation Status: Active [RES] Routine Comment: Resuscitation Status: Full Code 08/23/18 16:51 CODE [Resuscitation Status: Active] [RES] Routine Comment: Resuscitation Status: DNR-Comfort Care - Labs CBC & Chem 7: 08/24/18 04:49 08/24/18 04:49 - ABG Interpretation ABG results: ABG ABG pH 7.38 pH Units (7.32-7.45) 08/23/18 15:40 ABG pCO2 56 mmHg (35-45) H 08/23/18 15:40 ABG pO2 70 mmHg (85-104) L 08/23/18 15:40 ABG O2 Saturation 93 % (95-98) L 08/23/18 15:40 PT/INR, D-dimer PT 11.8 Seconds (9.4-12.1) 08/21/18 17:37 Palliative Scale - Palliative Performance Scale How ambulatory is this patient?: Full What is patient's level of activity and evidence of disease?: Normal activity and work, Some evidence of disease How much self-care assistance does patient require?: Full How much oral intake does the patient have?: Normal What is this patient's level of consciousness?: Full Palliative Performance Score: 90 % Consult Discharge Plan - Plan Referrals: Cesar Petersen MD [Primary Care Provider] - Prescriptions: LORazepam [Ativan] 0.5 mg PO Q4HR PRN 3 Days #18 tablet PRN Reason: Anxiety Morphine Immed Rel [Morphine Sulfate] 15 mg PO Q6HR PRN 3 Days #12 tab PRN Reason: Dyspnea ALPRAZolam [Xanax 1 MG Tablet] 1 mg PO QID 3 Days #12 tablet <Neeta Vicente - Last Filed: 08/26/18 16:56> Date of Encounter: 08/26/18 - Time Spent With Patient Total time spent is greater than 50% in coordination of care (as documented) at patient's floor/unit and/or counseling patient: - Constitutional Vitals: Abnormal lab results WBC 12.0 K/mcL (4.3-11.1) H 08/24/18 04:49 Hgb 17.6 g/dL (12.9-16.9) H 08/21/18 17:37 Hct 53.9 % (37.5-50.1) H 08/21/18 17:37 11.0 K/mcL (1.6-8.9) H 08/24/18 04:49 8.5 K/mcL (0.6-4.6) H 08/21/18 17:37 1.8 K/mcL (0.0-1.3) H 08/21/18 17:37 Present (Not Present) A 08/21/18 17:37 APTT 37.0 Seconds (26.0-36.0) H 08/21/18 17:37 ABG pH 7.22 pH Units (7.32-7.45) L 08/22/18 04:17 ABG pCO2 56 mmHg (35-45) H 08/23/18 15:40 ABG pO2 70 mmHg (85-104) L 08/23/18 15:40 ABG HCO3 34 mEq/L (21-27) H 08/23/18 15:40 ABG Total CO2 35 mEq/L (20-26) H 08/23/18 15:40 ABG O2 Saturation 93 % (95-98) L 08/23/18 15:40 ABG Base Excess 6 mEq/L (-2 to 3) H 08/23/18 15:40 Sodium 134 mEq/L (136-145) L 08/24/18 04:49 Chloride 96 mEq/L (98-107) L 08/24/18 04:49 Carbon Dioxide 31 mEq/L (23-29) H 08/24/18 04:49 BUN 42 mg/dL (6-20) H 08/24/18 04:49 1.43 mg/dL (0.70-1.30) H 08/22/18 10:43 Est GFR (Non-Af Amer) 51 (> 60) L 08/22/18 10:43 47 (6-26) H 08/24/18 04:49 Glucose 143 mg/dL (70-105) H 08/24/18 04:49 POC Glucose 152 mg/dL (70-99) H 08/24/18 13:41 Lactic Acid 2.4 mmol/L (0.5-2.2) H 08/21/18 18:42 Venous Ioniz Calcium 1.04 mmol/L (1.15-1.35) L 08/22/18 11:03 Phosphorus 5.3 mg/dL (2.7-4.5) H 08/22/18 10:43 1.17 ng/mL (< 0.04) H* 08/21/18 17:37 B-Natriuretic Peptide 422 pg/mL (Less than 100) H 08/21/18 17:37 1.19 ng/mL (0.00-0.15) H 08/23/18 12:28 Cloudy (Clear) A 08/22/18 10:30 Ur Specific [place] > 1.030 (1.010-1.025) H 08/22/18 10:30 30 mg/dL (Neg-Trace) H 08/22/18 10:30 Large (Negative) H 08/22/18 10:30 TNTC per hpf (0-3) H 08/22/18 10:30 5-15 per hpf (0-3) H 08/22/18 10:30 Ur Squamous Epith Cells Many per lpf (None-Few) H 08/22/18 10:30 Granular Casts Few per lpf (None Seen) H 08/22/18 10:30 Ur Culture Indicated? YES (NO) A 08/22/18 10:30 Parainfluenza 3 (PCR) DETECTED (Not Detect) A 08/22/18 10:35 - Attending Attestation I performed a history and physical examination of the patient and discussed his management with the resident. I reviewed the residents note and agree with the documented findings and plan of care Pt to be discharged home today wit [facility]. [facility]s for Xanax, ativan and morphine provided. Palliative Quality Code Status: 08/21/18 22:54 Resuscitation Status: Active [RES] Routine Comment: Resuscitation Status: Full Code 08/23/18 16:51 CODE [Resuscitation Status: Active] [RES] Routine Comment: Resuscitation Status: DNR-Comfort Care - Labs CBC & Chem 7: 08/24/18 04:49 08/24/18 04:49 - ABG Interpretation ABG results: ABG ABG pH 7.38 pH Units (7.32-7.45) 08/23/18 15:40 ABG pCO2 56 mmHg (35-45) H 08/23/18 15:40 ABG pO2 70 mmHg (85-104) L 08/23/18 15:40 ABG O2 Saturation 93 % (95-98) L 08/23/18 15:40 PT/INR, D-dimer PT 11.8 Seconds (9.4-12.1) 08/21/18 17:37
[2018-08-26] MEDS: SACUBITRIL/VALSARTAN 24/26 MG TABLET PO SCH ×2 (10:51→20:13)
[2018-08-26] MEDS: Metoprolol XL (24 HR) Succ 25 MG TAB.ER.24H PO SCH (10:51)
[2018-08-26] MEDS: *HR* Digoxin 0.125 MG TABLET PO SCH (10:52)
[2018-08-26] MEDS: Furosemide 20 MG TABLET PO SCH (10:52)
[2018-08-26] MEDS: Aspirin 81 MG TAB.CHEW PO SCH (10:52)
[2018-08-26] MEDS: ALPRAZolam 1 MG TABLET PO SCH ×4 (10:56→20:13)
[2018-08-26] MEDS ORDERED: ALPRAZolam 1 MG TABLET PO SCH (13:00)
--- NOTE | 2018-08-26 14:18 | Internal Med Progress Note ---
Hospitalist Progress Note - Encounter Date of Encounter: 08/26/18 Time of Encounter: 14:14 - Subjective Interval History: Patient seen and examined earlier this morning. Pt breathing comfortably and reports anxiety better controlled. Pt will be discharged to home with hospice care. Hospice care went to drop off the supplies to patient's home today and family refused stating the house is not in a good condition to accept the patient today. patient services specialist on board for discharge disposition. Tentative d/c in am No overnight events reported Ten point ROS is negative except as listed above - Exam Vitals: Temp Pulse Resp BP Pulse Ox 98.5 F 78 16 119/71 95 08/26/18 11:26 08/26/18 11:26 08/26/18 11:33 08/26/18 11:26 08/26/18 11:33 Exam: General: No acute distress, AAO x 3, malnourished HEENT: EOMI, PERRLA, NC/AT, no scleral icterus Respiratory: decreased breath sounds, no wheezing Cardiovascular: Regular, Rate, Rhythm, No murmurs GI: Soft, Non tender, non distended, normal bowel sounds Ext: No edema, no tenderness, positive pulses Neuro: AAO x 3, no focal deficits, CN II-XII grossly intact - Assessment and Plan (1) Systolic CHF Current Visit: Yes Status: Acute (2) Goals of care, counseling/discussion Current Visit: Yes Status: Acute (3) Palliative care encounter Current Visit: Yes Status: Acute (4) COPD (chronic obstructive pulmonary disease) with emphysema Current Visit: Yes Status: Acute (5) Coronary artery disease Current Visit: Yes Status: Acute (6) Anxiety Current Visit: Yes Status: Acute - Summary of Assessment and Plan Summary of Assessment and Plan: Patient is a 58y/o male with hx of COPD, anxiety who was admitted for STEMI. Pt underwent LHC and was noted to have mild CAD. He was also found to have systolic CHF with reduced EF. Hospital course was complicated by acute respiratory failure requiring intubation. He was managed in the ICU and successfully extubated. Pt was noted to be in respiratory distress post extubation and expressed that he wants to be DNR/DNI. Palliative care was consulted. Pt was sta rted on comfort care measures as per patient's wishes. Assessment/Plan: 1. Systolic CHF Cardiology input appreciated continue statin, digoxin, and lasix fluid restriction diet will closely monitor respiratory status 2. Acute respiratory failure likely multifactorial in the setting of severe COPD, PNA, and CHF continue systemic steroids bronchodilator support O2 supplementation will closely monitor respiratory status pulmonology input appreciated 3. Goals of Care pt on comfort care measures as per his wishes palliative care evaluation appreciated d/c IN am once everything is safe and set up at home. marriage and family social worker on board for discharge disposition. DVT ppx: Heparin SQ Care plan discussed with patient/RN/palliative care - Time Spent with Patient Total time spent is greater than 50% in coordination of care (as documented) at patient's floor/unit and/or counseling patient: 25 - 35 minutes Internal Medicine: Result - Labs CBC & Chem 7: 08/24/18 04:49 08/24/18 04:49 - ABG Interpretation ABG results: ABG ABG pH 7.38 pH Units (7.32-7.45) 08/23/18 15:40 ABG pCO2 56 mmHg (35-45) H 08/23/18 15:40 ABG pO2 70 mmHg (85-104) L 08/23/18 15:40 ABG O2 Saturation 93 % (95-98) L 08/23/18 15:40 PT/INR, D-dimer PT 11.8 Seconds (9.4-12.1) 08/21/18 17:37 Consult Discharge Plan - Plan Referrals: Cesar Petersen MD [Primary Care Provider] - Prescriptions: LORazepam [Ativan] 0.5 mg PO Q4HR PRN 3 Days #18 tablet PRN Reason: Anxiety Morphine Immed Rel [Morphine Sulfate] 15 mg PO Q6HR PRN 3 Days #12 tab PRN Reason: Dyspnea ALPRAZolam [Xanax 1 MG Tablet] 1 mg PO QID 3 Days #12 tablet (1) Systolic CHF Qualifiers: Heart failure chronicity: acute Qualified Code(s): I50.21 - Acute systolic (congestive) heart failure (4) COPD (chronic obstructive pulmonary disease) with emphysema Qualifiers: Emphysema type: unspecified Qualified Code(s): J43.9 - Emphysema, unspecified (5) Coronary artery disease Qualifiers: Coronary Disease-Associated Artery/Lesion type: [place] artery [place] vs. transplanted heart: [place] heart Associated angina: angina presence unspecified Qualified Code(s): I25.10 - Atherosclerotic heart disease of [place] coronary artery without angina pectoris
[2018-08-26] MEDS: traZODone 50 MG TABLET PO SCH (20:13)
[2018-08-27] MEDS: Ipratropium/Albuterol Neb 3 ML IH SCH ×3 (03:40→11:35)
[2018-08-27] MEDS: *HR* Heparin 5,000 UNIT/ML VIAL SQ SCH (05:37)
[2018-08-27] MEDS: *HR* LORazepam 2 MG/ML VIAL IVP PRN (05:39)
[2018-08-27 06:41] VITALS: BP 100/57
[2018-08-27] MEDS ORDERED: *HR* LORazepam 1 MG TABLET PO PRN (09:06)
[2018-08-27] MEDS: cefTRIAXone 1,000 MG in Water for inj. (sterile) 20 ML 10 ML IVP SCH (09:13)
[2018-08-27] MEDS: MethylPREDNISolone 40 MG/ML VIAL IVP SCH (09:13)
[2018-08-27] MEDS: ALPRAZolam 1 MG TABLET PO SCH (09:14)
[2018-08-27] MEDS: *HR* Digoxin 0.125 MG TABLET PO SCH (09:14)
[2018-08-27] MEDS: Furosemide 20 MG TABLET PO SCH (09:14)
[2018-08-27] MEDS: SACUBITRIL/VALSARTAN 24/26 MG TABLET PO SCH (09:15)
[2018-08-27] MEDS: Metoprolol XL (24 HR) Succ 25 MG TAB.ER.24H PO SCH (09:15)
[2018-08-27] MEDS: Aspirin 81 MG TAB.CHEW PO SCH (09:15)
[2018-08-27] MEDS: MORPHINE SUL Oral CONC 10 MG/0.5 ML ORAL.SYG SL PRN (09:23)
--- NOTE | 2018-08-27 09:26 | Palliative Progress Note ---
<James Blum - Last Filed: 08/27/18 10:30> Date of Encounter: 08/27/18 Time of Encounter: 09:00 - Assessment and plan (1) Anxiety Status: Acute Assessment and plan: Pt was started on Xanax QID yesterday and reports better control of his anxiety. Also required less prn Ativan yesterday. (2) Goals of care, counseling/discussion Status: Acute Assessment and plan: Pt planning for transition to home with [facility] as soon as DME is available at the home. Pt reports he is about to call [facility] so he can go home soon. (3) Palliative care encounter Status: Acute Assessment and plan: Patient reports he is having regular bowel movements. Will provide with prn Senna prescription. (4) COPD (chronic obstructive pulmonary disease) with emphysema Status: Acute Assessment and plan: Terminal emphysema. Transition to home with [facility] as above Qualifiers: Emphysema type: unspecified Qualified Code(s): J43.9 - Emphysema, unspecified (5) Systolic CHF Status: Acute Assessment and plan: LVEF 15-20% Cardiology on board and managing Qualifiers: Heart failure chronicity: acute Qualified Code(s): I50.21 - Acute systolic (congestive) heart failure (6) Coronary artery disease Status: Acute Assessment and plan: per cardio recs Qualifiers: Coronary Disease-Associated Artery/Lesion type: [place] artery [place] vs. transplanted heart: [place] heart Associated angina: angina presence unspecified Qualified Code(s): I25.10 - Atherosclerotic heart disease of [place] coronary artery without angina pectoris - Time Spent With Patient Total time spent is greater than 50% in coordination of care (as documented) at patient's floor/unit and/or counseling patient: - Subjective Interval history: Pt seen and examined at bedside. Sitting comfortably in bed. Reports he feels "pretty good" today and is excited to go home. Denies any pain. States anxiety is better controlled. - Constitutional Vitals: Abnormal lab results WBC 12.0 K/mcL (4.3-11.1) H 08/24/18 04:49 Hgb 17.6 g/dL (12.9-16.9) H 08/21/18 17:37 Hct 53.9 % (37.5-50.1) H 08/21/18 17:37 11.0 K/mcL (1.6-8.9) H 08/24/18 04:49 8.5 K/mcL (0.6-4.6) H 08/21/18 17:37 1.8 K/mcL (0.0-1.3) H 08/21/18 17:37 Present (Not Present) A 08/21/18 17:37 APTT 37.0 Seconds (26.0-36.0) H 08/21/18 17:37 ABG pH 7.22 pH Units (7.32-7.45) L 08/22/18 04:17 ABG pCO2 56 mmHg (35-45) H 08/23/18 15:40 ABG pO2 70 mmHg (85-104) L 08/23/18 15:40 ABG HCO3 34 mEq/L (21-27) H 08/23/18 15:40 ABG Total CO2 35 mEq/L (20-26) H 08/23/18 15:40 ABG O2 Saturation 93 % (95-98) L 08/23/18 15:40 ABG Base Excess 6 mEq/L (-2 to 3) H 08/23/18 15:40 Sodium 134 mEq/L (136-145) L 08/24/18 04:49 Chloride 96 mEq/L (98-107) L 08/24/18 04:49 Carbon Dioxide 31 mEq/L (23-29) H 08/24/18 04:49 BUN 42 mg/dL (6-20) H 08/24/18 04:49 1.43 mg/dL (0.70-1.30) H 08/22/18 10:43 Est GFR (Non-Af Amer) 51 (> 60) L 08/22/18 10:43 47 (6-26) H 08/24/18 04:49 Glucose 143 mg/dL (70-105) H 08/24/18 04:49 POC Glucose 152 mg/dL (70-99) H 08/24/18 13:41 Lactic Acid 2.4 mmol/L (0.5-2.2) H 08/21/18 18:42 Venous Ioniz Calcium 1.04 mmol/L (1.15-1.35) L 08/22/18 11:03 Phosphorus 5.3 mg/dL (2.7-4.5) H 08/22/18 10:43 1.17 ng/mL (< 0.04) H* 08/21/18 17:37 B-Natriuretic Peptide 422 pg/mL (Less than 100) H 08/21/18 17:37 1.19 ng/mL (0.00-0.15) H 08/23/18 12:28 Cloudy (Clear) A 08/22/18 10:30 Ur Specific [place] > 1.030 (1.010-1.025) H 08/22/18 10:30 30 mg/dL (Neg-Trace) H 08/22/18 10:30 Large (Negative) H 08/22/18 10:30 TNTC per hpf (0-3) H 08/22/18 10:30 5-15 per hpf (0-3) H 08/22/18 10:30 Ur Squamous Epith Cells Many per lpf (None-Few) H 08/22/18 10:30 Granular Casts Few per lpf (None Seen) H 08/22/18 10:30 Ur Culture Indicated? YES (NO) A 08/22/18 10:30 Parainfluenza 3 (PCR) DETECTED (Not Detect) A 08/22/18 10:35 General appearance: Present: cooperative, no acute distress, thin - Head Head exam: Present: atraumatic, normal inspection, normocephalic - Respiratory Respiratory exam: Present: decreased breath sounds. Absent: rales, rhonchi, stridor, wheezes - Cardiovascular Cardiovascular exam: Present: RRR, +S1, +S2 - Extremities Exam Extremities exam: Present: normal inspection. Absent: calf tenderness, pedal edema - Back Exam Back exam: Present: normal inspection. Absent: tenderness - Neurological Exam Neurological exam: Present: alert, oriented X3, no focal deficits - Skin Skin exam: Present: dry, intact, normal color, warm Palliative Quality Palliative Quality: Screen for Code Status: Yes, Screen for Goals of Care: Yes, Screen for Pain: Yes, If Pain Regimen Started, Initiate Bowel Regimen: Yes, Screen for Nausea/Vomitting: Yes Code Status: 08/21/18 22:54 Resuscitation Status: Active [RES] Routine Comment: Resuscitation Status: Full Code 08/23/18 16:51 CODE [Resuscitation Status: Active] [RES] Routine Comment: Resuscitation Status: DNR-Comfort Care - Labs CBC & Chem 7: 08/24/18 04:49 08/24/18 04:49 - ABG Interpretation ABG results: ABG ABG pH 7.38 pH Units (7.32-7.45) 08/23/18 15:40 ABG pCO2 56 mmHg (35-45) H 08/23/18 15:40 ABG pO2 70 mmHg (85-104) L 08/23/18 15:40 ABG O2 Saturation 93 % (95-98) L 08/23/18 15:40 PT/INR, D-dimer PT 11.8 Seconds (9.4-12.1) 08/21/18 17:37 Palliative Scale - Palliative Performance Scale How ambulatory is this patient?: Full What is patient's level of activity and evidence of disease?: Normal activity and work, Some evidence of disease How much self-care assistance does patient require?: Full How much oral intake does the patient have?: Normal What is this patient's level of consciousness?: Full Palliative Performance Score: 90 % Consult Discharge Plan - Plan Instructions: Heart Failure (DC), Atrial Flutter (DC) Additional Instructions: Follow-up appointments: If there is not an appointment listed below, please call your physician and schedule a follow-up appointment. If you have congestive heart failure and your symptoms return, make an appointment with your physician. Medication List: Carry an up to date list of medications you are taking at all time. We have given you an updated medication list including any new medications that you have been prescribed. Please provide that list to your primary provider Symptoms: If your condition changes or you experience any of the following symptoms, notify your physician immediately: Unusual or worsening pain, fever, persistent nausea and vomiting, bleeding, increase in swelling (especially in your legs), sudden weight gain, extreme dizziness, chest pain, increased drainage or redness from a wound or incision. Go to the emergency department if you experience a problem with breathing. Weights: If you have a history of swelling or shortness of breath, weigh yourself daily and notify your physician if you have a weight gain of two or more pounds in one day or 5 or more pounds in a week. If you experience any of the warning signs for stroke: Sudden numbness or weakness of the face, arm or leg; especially on one side of the body, sudden confusion, trouble speaking or understanding, sudden trouble seeing in one or both eyes, sudden trouble walking, dizziness, loss of balance or coordination, sudden sever headache with no cause; Call 911 or go to the emergency room. Stroke is a medical emergency. Some risk factors for stroke: Age, cigarette smoking, diabetes, excessive alcohol consumption, family history, high blood pressure, overweight, physical inactivity, prior stroke, heart attack, diagnosis of carotid artery stenosis or other artery disease. If you smoke, STOP: Smoking or tobacco use significantly increases your risk of heart and lung disease. Your chance of disease greatly increases if you continue to smoke. For more information, call the [place] quit line for smoking cessation 4-453-KOBW-NOW ( ) 1. Please follow up with your primary care physican within five days after your discharge from the hospital. 2. Please follow up with pulmonology and cardiology within one week after your discharge from the hospital. 3. Your home medications have been changed as follows: -Aspirin 81mg once a day has been added -Lipitor 10mg once a day has been added -Digoxin 0.125mg once a day has been added -Lasix 20mg once a day has been added -Metoprolol 25mg once a day has been added -Entresto twice a day has been added -continue Levofloxacin and Prednisone as prescribed. 4. Continue pain medications as prescribed by palliative care doctor. 5. Please seek medical help if you have difficulty breathing or if chest pain occurs. 6. Please continue all your home medications as prescribed by your primary care physician Referrals: Cesar Petersen MD [Primary Care Provider] - (patient will follow up with hospice) Prescriptions: Aspirin 81 mg PO DAILY #30 tab.chew LORazepam [Ativan] 0.5 mg PO Q4HR PRN 3 Days #18 tablet PRN Reason: Anxiety Sacubitril/Valsartan 24/26 mg [Entresto 24 mg-26 mg Tablet] 1 tab PO BID #30 tablet Gabapentin 800 mg PO TID #90 tablet Digoxin [Lanoxin] 0.125 mg PO DAILY #30 tablet Furosemide [Lasix] 20 mg PO DAILY #30 tablet Levofloxacin [Levaquin] 750 mg PO DAILY #3 tablet Atorvastatin [Lipitor] 20 mg PO HS #30 tablet Morphine Immed Rel [Morphine Sulfate] 15 mg PO Q6HR PRN 3 Days #12 tab PRN Reason: Dyspnea predniSONE [PredniSONE] 40 mg PO DAILY #4 tablet Sennosides [Senna] 8.6 mg PO DAILY PRN 30 Days #30 tablet PRN Reason: Constipation Metoprolol XL (24 HR) Succ [Toprol Xl] 25 mg PO DAILY #30 tab.er.24h ALPRAZolam [Xanax 1 MG Tablet] 1 mg PO QID 3 Days #12 tablet <Neeta Vicente - Last Filed: 08/27/18 13:49> Date of Encounter: 08/27/18 - Time Spent With Patient Total time spent is greater than 50% in coordination of care (as documented) at patient's floor/unit and/or counseling patient: - Constitutional Vitals: Abnormal lab results WBC 12.0 K/mcL (4.3-11.1) H 08/24/18 04:49 Hgb 17.6 g/dL (12.9-16.9) H 08/21/18 17:37 Hct 53.9 % (37.5-50.1) H 08/21/18 17:37 11.0 K/mcL (1.6-8.9) H 08/24/18 04:49 8.5 K/mcL (0.6-4.6) H 08/21/18 17:37 1.8 K/mcL (0.0-1.3) H 08/21/18 17:37 Present (Not Present) A 08/21/18 17:37 APTT 37.0 Seconds (26.0-36.0) H 08/21/18 17:37 ABG pH 7.22 pH Units (7.32-7.45) L 08/22/18 04:17 ABG pCO2 56 mmHg (35-45) H 08/23/18 15:40 ABG pO2 70 mmHg (85-104) L 08/23/18 15:40 ABG HCO3 34 mEq/L (21-27) H 08/23/18 15:40 ABG Total CO2 35 mEq/L (20-26) H 08/23/18 15:40 ABG O2 Saturation 93 % (95-98) L 08/23/18 15:40 ABG Base Excess 6 mEq/L (-2 to 3) H 08/23/18 15:40 Sodium 134 mEq/L (136-145) L 08/24/18 04:49 Chloride 96 mEq/L (98-107) L 08/24/18 04:49 Carbon Dioxide 31 mEq/L (23-29) H 08/24/18 04:49 BUN 42 mg/dL (6-20) H 08/24/18 04:49 1.43 mg/dL (0.70-1.30) H 08/22/18 10:43 Est GFR (Non-Af Amer) 51 (> 60) L 08/22/18 10:43 47 (6-26) H 08/24/18 04:49 Glucose 143 mg/dL (70-105) H 08/24/18 04:49 POC Glucose 152 mg/dL (70-99) H 08/24/18 13:41 Lactic Acid 2.4 mmol/L (0.5-2.2) H 08/21/18 18:42 Venous Ioniz Calcium 1.04 mmol/L (1.15-1.35) L 08/22/18 11:03 Phosphorus 5.3 mg/dL (2.7-4.5) H 08/22/18 10:43 1.17 ng/mL (< 0.04) H* 08/21/18 17:37 B-Natriuretic Peptide 422 pg/mL (Less than 100) H 08/21/18 17:37 1.19 ng/mL (0.00-0.15) H 08/23/18 12:28 Cloudy (Clear) A 08/22/18 10:30 Ur Specific [place] > 1.030 (1.010-1.025) H 08/22/18 10:30 30 mg/dL (Neg-Trace) H 08/22/18 10:30 Large (Negative) H 08/22/18 10:30 TNTC per hpf (0-3) H 08/22/18 10:30 5-15 per hpf (0-3) H 08/22/18 10:30 Ur Squamous Epith Cells Many per lpf (None-Few) H 08/22/18 10:30 Granular Casts Few per lpf (None Seen) H 08/22/18 10:30 Ur Culture Indicated? YES (NO) A 08/22/18 10:30 Parainfluenza 3 (PCR) DETECTED (Not Detect) A 08/22/18 10:35 - Attending Attestation I performed a history and physical examination of the patient and discussed his management with the resident. I reviewed the residents note and agree with the documented findings and plan of care, Patient was not discharged yesterday due to disposition issues, now ready for discharge. Added Senna for constipation, pt having regular BM. Palliative Quality Code Status: 08/21/18 22:54 Resuscitation Status: Active [RES] Routine Comment: Resuscitation Status: Full Code 08/23/18 16:51 CODE [Resuscitation Status: Active] [RES] Routine Comment: Resuscitation Status: DNR-Comfort Care - Labs CBC & Chem 7: 08/24/18 04:49 08/24/18 04:49 - ABG Interpretation ABG results: ABG ABG pH 7.38 pH Units (7.32-7.45) 08/23/18 15:40 ABG pCO2 56 mmHg (35-45) H 08/23/18 15:40 ABG pO2 70 mmHg (85-104) L 08/23/18 15:40 ABG O2 Saturation 93 % (95-98) L 08/23/18 15:40 PT/INR, D-dimer PT 11.8 Seconds (9.4-12.1) 08/21/18 17:37
--- NOTE | 2018-08-27 11:19 | Physician Discharge Referral ---
Home Health/Hosp Referral Info Transfer to: Hospice Provider in Charge Post Discharge: [employer] - Diagnosis (1) Systolic CHF Priority: Primary Status: Acute (2) Goals of care, counseling/discussion Priority: Secondary Status: Acute (3) Palliative care encounter Priority: Secondary Status: Acute (4) COPD (chronic obstructive pulmonary disease) with emphysema Priority: Primary Status: Acute (5) Coronary artery disease Priority: Primary Status: Acute (6) Anxiety Priority: Secondary Status: Acute (7) Pneumonia Priority: Secondary Status: Acute (8) STEMI (ST elevation myocardial infarction) Priority: Primary Status: Acute - Respiratory Orders Smoking Cessation: Smoking cessation has been advised. For more information, call the [place] [employer] Quit Line at 7-102-HVGL-NOW. - Services Needed Following services are medically necessary services: Nursing, Home Health Aide, Physical Therapy, Occupational Therapy - Transfer Medications Prescriptions: Aspirin 81 mg PO DAILY #30 tab.chew LORazepam [Ativan] 0.5 mg PO Q4HR PRN 3 Days #18 tablet PRN Reason: Anxiety Sacubitril/Valsartan 24/26 mg [Entresto 24 mg-26 mg Tablet] 1 tab PO BID #30 tablet Gabapentin 800 mg PO TID #90 tablet Digoxin [Lanoxin] 0.125 mg PO DAILY #30 tablet Furosemide [Lasix] 20 mg PO DAILY #30 tablet Levofloxacin [Levaquin] 750 mg PO DAILY #3 tablet Atorvastatin [Lipitor] 20 mg PO HS #30 tablet Morphine Immed Rel [Morphine Sulfate] 15 mg PO Q6HR PRN 3 Days #12 tab PRN Reason: Dyspnea predniSONE [PredniSONE] 40 mg PO DAILY #4 tablet Sennosides [Senna] 8.6 mg PO DAILY PRN 30 Days #30 tablet PRN Reason: Constipation Metoprolol XL (24 HR) Succ [Toprol Xl] 25 mg PO DAILY #30 tab.er.24h ALPRAZolam [Xanax 1 MG Tablet] 1 mg PO QID 3 Days #12 tablet Home Medications: Albuterol Sulfate [Albuterol Inhaler] 2 puff IH Q4H PRN 08/21/18 [History] Budesonide/Formoterol 160/4.5 [Symbicort 160/4.5] 2 puff IH BIDR 08/21/18 [History] Omeprazole [PriLOSEC] 40 mg PO DAILY 08/21/18 [History] Tiotropium [Spiriva] 1 puff IH DAILY 08/21/18 [History] Trazodone HCl 100 mg PO HS 08/21/18 [History] ALPRAZolam [Xanax 1 MG Tablet] 1 mg PO QID 3 Days #12 tablet 08/26/18 [Rx] LORazepam [Ativan] 0.5 mg PO Q4HR PRN 3 Days #18 tablet 08/26/18 [Rx] Morphine Immed Rel [Morphine Sulfate] 15 mg PO Q6HR PRN 3 Days #12 tab 08/26/18 [Rx] Acetaminophen [Tylenol] 500 mg PO Q6HR PRN tablet 08/27/18 [Rx] Aspirin 81 mg PO DAILY #30 tab.chew 08/27/18 [Rx] Atorvastatin [Lipitor] 20 mg PO HS #30 tablet 08/27/18 [Rx] Digoxin [Lanoxin] 0.125 mg PO DAILY #30 tablet 08/27/18 [Rx] Furosemide [Lasix] 20 mg PO DAILY #30 tablet 08/27/18 [Rx] Gabapentin 800 mg PO TID #90 tablet 08/27/18 [Rx] Levofloxacin [Levaquin] 750 mg PO DAILY #3 tablet 08/27/18 [Rx] Metoprolol XL (24 HR) Succ [Toprol Xl] 25 mg PO DAILY #30 tab.er.24h 08/27/18 [Rx] Sacubitril/Valsartan 24/26 mg [Entresto 24 mg-26 mg Tablet] 1 tab PO BID #30 tablet 08/27/18 [Rx] Sennosides [Senna] 8.6 mg PO DAILY PRN 30 Days #30 tablet 08/27/18 [Rx] predniSONE [PredniSONE] 40 mg PO DAILY #4 tablet 08/27/18 [Rx] Allergies/Adverse Reactions: Allergy/AdvReac Type Severity Reaction Status Date / Time No Known Allergies Allergy Verified 12/28/14 19:26 Certification: Further, I certify that my clinical findings support that this patient is homebound (i.e. absences from home require considerable and taxing effort and are for medical reasons or caodaism services or infrequently or short duration when for other reasons) because: Homebound Reason: Patient requires assistance of a person or device to safely leave home Attestation: My signature below is to certify that this patient is under my care and that I, or nurse practitioner, or a physician's collections assistant working with me, has a [id number] encounter with this patient.
--- NOTE | 2018-08-27 11:27 | Discharge Summary ---
- NOTES TO OUTPATIENT PROVIDER Notes to Outpatient Provider: Pt admitted for acute respiratory failure secondary to COPD exacerbation and PNA, and STEMI. Decided to pursue hospice care. Currently being discharged on oral abx, oral steroids, along with continuation of cardiac meds. Date of Encounter: 08/27/18 Time of Encounter: 11:25 - Discharge Diagnosis (1) Systolic CHF Priority: Primary Status: Acute Qualifiers: Heart failure chronicity: acute Qualified Code(s): I50.21 - Acute systolic (congestive) heart failure (2) Goals of care, counseling/discussion Priority: Secondary Status: Acute (3) Palliative care encounter Priority: Secondary Status: Acute (4) COPD (chronic obstructive pulmonary disease) with emphysema Priority: Primary Status: Acute Qualifiers: Emphysema type: unspecified Qualified Code(s): J43.9 - Emphysema, unspecified (5) Coronary artery disease Priority: Secondary Status: Acute Qualifiers: Coronary Disease-Associated Artery/Lesion type: [place] artery [place] vs. transplanted heart: [place] heart Associated angina: angina presence unspecified Qualified Code(s): I25.10 - Atherosclerotic heart disease of [place] coronary artery without angina pectoris (6) Anxiety Priority: Secondary Status: Acute (7) Pneumonia Priority: Primary Status: Acute Qualifiers: Pneumonia type: due to unspecified organism Laterality: right Lung location: middle lobe of lung Qualified Code(s): J18.1 - Lobar pneumonia, unspecified organism (8) STEMI (ST elevation myocardial infarction) Priority: Primary Status: Acute Qualifiers: Involved coronary artery: unspecified coronary artery Qualified Code(s): I21.3 - ST elevation (STEMI) myocardial infarction of unspecified site Hospital course: Mr. Mckenzie is a 58 year old male with PMH of tobacco abuse and COPD who was admitted under cardiology service for ST elevation HI. Pt was also found to be in acute respiratory distress upon arrival secondary to PNA and COPD exacerbation. Patient underwent emergent LHC which reported mild CAD however LVEF of 15-20%. Pt was intubated in the [facility] and transferred to the ICU. Pt remained intubated while being treated for COPD exacerbation and PNA. Pt was successfully extubated and as per pt's wishes, his code status was changed to DNR/DNI. Pt was informed of his end stage COPD and severe cardiomyopathy with EF of 20% due to which he wanted to pursue comfort measures. Palliative care was consulted and decision to change pt to comfort measures care only with home hospice was made. Home hospice has been arranged by the palliative care team. Pt is to continue on cardiac medications and abx upon discharge, along with anxiety and pain medications as per the palliative care team. Pt is currently medically stable for discharge to home with hospice care with outpatient follow up with PCP, cardiology, and pulmonology. Pt was seen and examined on the day of discharge. All questions were answered. Discharge discussed with: patient, nurse, social work, case management, exchange consultant - Time Spent with Patient Total time spent providing and/or coordinating discharge services: 35 minutes Time spent: Greater than 30 minutes - Discharge Medications Prescriptions: New LORazepam [Ativan] 0.5 mg PO Q4HR PRN 3 Days #18 tablet PRN Reason: Anxiety Morphine Immed Rel [Morphine Sulfate] 15 mg PO Q6HR PRN 3 Days #12 tab PRN Reason: Dyspnea ALPRAZolam [Xanax 1 MG Tablet] 1 mg PO QID 3 Days #12 tablet Sennosides [Senna] 8.6 mg PO DAILY PRN 30 Days #30 tablet PRN Reason: Constipation Aspirin 81 mg PO DAILY #30 tab.chew Sacubitril/Valsartan 24/26 mg [Entresto 24 mg-26 mg Tablet] 1 tab PO BID #30 tablet Digoxin [Lanoxin] 0.125 mg PO DAILY #30 tablet Furosemide [Lasix] 20 mg PO DAILY #30 tablet Levofloxacin [Levaquin] 750 mg PO DAILY #3 tablet Atorvastatin [Lipitor] 20 mg PO HS #30 tablet predniSONE [PredniSONE] 40 mg PO DAILY #4 tablet Metoprolol XL (24 HR) Succ [Toprol Xl] 25 mg PO DAILY #30 tab.er.24h Acetaminophen [Tylenol] 500 mg PO Q6HR PRN tablet PRN Reason: Mild Pain Continued Tiotropium [Spiriva] 1 puff IH DAILY Budesonide/Formoterol 160/4.5 [Symbicort 160/4.5] 2 puff IH BIDR Trazodone HCl 100 mg PO HS Omeprazole [PriLOSEC] 40 mg PO DAILY Albuterol Sulfate [Albuterol Inhaler] 2 puff IH Q4H PRN PRN Reason: Shortness Of Breath Gabapentin 800 mg PO TID #90 tablet Home Medications: Albuterol Sulfate [Albuterol Inhaler] 2 puff IH Q4H PRN 08/21/18 [History] Budesonide/Formoterol 160/4.5 [Symbicort 160/4.5] 2 puff IH BIDR 08/21/18 [History] Omeprazole [PriLOSEC] 40 mg PO DAILY 08/21/18 [History] Tiotropium [Spiriva] 1 puff IH DAILY 08/21/18 [History] Trazodone HCl 100 mg PO HS 08/21/18 [History] ALPRAZolam [Xanax 1 MG Tablet] 1 mg PO QID 3 Days #12 tablet 08/26/18 [Rx] LORazepam [Ativan] 0.5 mg PO Q4HR PRN 3 Days #18 tablet 08/26/18 [Rx] Morphine Immed Rel [Morphine Sulfate] 15 mg PO Q6HR PRN 3 Days #12 tab 08/26/18 [Rx] Acetaminophen [Tylenol] 500 mg PO Q6HR PRN tablet 08/27/18 [Rx] Aspirin 81 mg PO DAILY #30 tab.chew 08/27/18 [Rx] Atorvastatin [Lipitor] 20 mg PO HS #30 tablet 08/27/18 [Rx] Digoxin [Lanoxin] 0.125 mg PO DAILY #30 tablet 08/27/18 [Rx] Furosemide [Lasix] 20 mg PO DAILY #30 tablet 08/27/18 [Rx] Gabapentin 800 mg PO TID #90 tablet 08/27/18 [Rx] Levofloxacin [Levaquin] 750 mg PO DAILY #3 tablet 08/27/18 [Rx] Metoprolol XL (24 HR) Succ [Toprol Xl] 25 mg PO DAILY #30 tab.er.24h 08/27/18 [Rx] Sacubitril/Valsartan 24/26 mg [Entresto 24 mg-26 mg Tablet] 1 tab PO BID #30 tablet 08/27/18 [Rx] Sennosides [Senna] 8.6 mg PO DAILY PRN 30 Days #30 tablet 08/27/18 [Rx] predniSONE [PredniSONE] 40 mg PO DAILY #4 tablet 08/27/18 [Rx] Allergies/Adverse Reactions: Allergy/AdvReac Type Severity Reaction Status Date / Time No Known Allergies Allergy Verified 12/28/14 19:26 Date of admission: 08/21/18 18:40 Primary care physician: Cesar Petersen MD Consults: 08/21/18 19:16 Consult to Cardiac Rehabilitation-Phase1 [CONS] Routine Comment: Reason for Consult: AMI Call Completed: Yes Consult to Nurse Navigator [CONS] Routine Comment: 08/21/18 19:36 Consult to Pulmonology [CONS] Routine Consulting Provider: [facility] Reason for Consult: vent management Call Completed: No 08/21/18 20:01 Consult to Hospitalist [CONS] Routine Consulting Provider: Hospitalist Lore Reason for Consult: copd exacerbation / acidosis Call Completed: Yes 08/24/18 06:56 Consult to Palliative Care [CONS] Routine Comment: Consulting Provider: [facility] [place] Reason for Consult: Goals of care discussion Call Completed: No Discharging clinician: Francesca Rosen Anticipated date of discharge: 08/27/18 - Constitutional Vitals: Temp Pulse Resp BP Pulse Ox 97.7 F 65 16 100/57 98 08/27/18 06:37 08/27/18 06:37 08/27/18 07:49 08/27/18 06:37 08/27/18 07:49 Exam: General: No acute distress, AAO x 3, malnourished HEENT: EOMI, PERRLA, NC/AT, no scleral icterus Respiratory: decreased breath sounds, no wheezing Cardiovascular: Regular, Rate, Rhythm, No murmurs GI: Soft, Non tender, non distended, normal bowel sounds Ext: No edema, no tenderness, positive pulses Neuro: AAO x 3, no focal deficits, CN II-XII grossly intact - Patient Status Disposition: Home Health Service Condition: Critical Functional capacity at discharge: uses cane/walker - Discharge Instructions Instructions: Heart Failure (DC), Atrial Flutter (DC) Follow Up With: Cesar Petersen MD [Primary Care Provider] - (patient will follow up with hospice) Additional Instructions: Follow-up appointments: If there is not an appointment listed below, please call your physician and schedule a follow-up appointment. If you have congestive heart failure and your symptoms return, make an appointment with your physician. Medication List: Carry an up to date list of medications you are taking at all time. We have given you an updated medication list including any new medications that you have been prescribed. Please provide that list to your primary provider Symptoms: If your condition changes or you experience any of the following symptoms, notify your physician immediately: Unusual or worsening pain, fever, persistent nausea and vomiting, bleeding, increase in swelling (especially in your legs), sudden weight gain, extreme dizziness, chest pain, increased drainage or redness from a wound or incision. Go to the emergency department if you experience a problem with breathing. Weights: If you have a history of swelling or shortness of breath, weigh yourself daily and notify your physician if you have a weight gain of two or more pounds in one day or 5 or more pounds in a week. If you experience any of the warning signs for stroke: Sudden numbness or weakness of the face, arm or leg; especially on one side of the body, sudden confusion, trouble speaking or understanding, sudden trouble seeing in one or both eyes, sudden trouble walking, dizziness, loss of balance or coordination, sudden sever headache with no cause; Call 911 or go to the emergency room. Stroke is a medical emergency. Some risk factors for stroke: Age, cigarette smoking, diabetes, excessive alcohol consumption, family history, high blood pressure, overweight, physical inactivity, prior stroke, heart attack, diagnosis of carotid artery stenosis or other artery disease. If you smoke, STOP: Smoking or tobacco use significantly increases your risk of heart and lung disease. Your chance of disease greatly increases if you continue to smoke. For more information, call the [place] tobacco quit line for smoking cessation 6-961-YXUK-NOW ( ) 1. Please follow up with your primary care physican within five days after your discharge from the hospital. 2. Please follow up with pulmonology and cardiology within one week after your discharge from the hospital. 3. Your home medications have been changed as follows: -Aspirin 81mg once a day has been added -Lipitor 10mg once a day has been added -Digoxin 0.125mg once a day has been added -Lasix 20mg once a day has been added -Metoprolol 25mg once a day has been added -Entresto twice a day has been added -continue Levofloxacin and Prednisone as prescribed. 4. Continue pain medications as prescribed by palliative care doctor. 5. Please seek medical help if you have difficulty breathing or if chest pain occurs. 6. Please continue all your home medications as prescribed by your primary care physician - Diet and Activity Activity: increase activity as tolerated, wear oxygen at all times, wear oxygen at night Diet: low fat, low cholesterol, low salt diet
[2018-08-27] MEDS ORDERED: predniSONE 20 MG TABLET PO SCH (16:00)
== END 2018-08-27 11:50 | disposition home health service (06) | DRG 720 ==
LOC: EMEROOARM 17:08 → SUATTDRO 18:40 → ICNU 18:40 → 2ANU 08-24 12:11
PROVIDERS: ADMIT Emergency Medicine; ATTEND Internal Medicine